=== PATIENT | female | born 1930 | race Caucasian/White ===

== ENCOUNTER 2016-12-26 13:18 | Inpatient (IN) | payer MEDICARE ==
[~2016-12-26] VITALS: Ht 157.5 cm; Wt 50.0 kg
[~2016-12-26 13:18] MED LIST: ARTH650T6 PO; ASPI81 PO; CALC-137 PO; ENAL20TA PO; FISH100020 PO; HYDR-2768 PO; ISOS20 PO; LOPR50TA12 PO; ROSU20 PO; TRAZ150T75 PO; VITA400C58 PO
[2016-12-26 13:22] VITALS: BP 148/64; PULSE 100; RESP 24; TEMP 97.9; O2SAT 81
[2016-12-26 13:29] VITALS: BP 138/91; PULSE 115; RESP 22; O2SAT 91
[2016-12-26] MEDS ORDERED: SODIUM CHLORIDE 0.9% FLUSH 5 ML FLUSH IVF PRN (13:45)
[2016-12-26] MEDS ORDERED: MORPHINE SULFATE 4 MG/ML INJ IV ONE (13:45)
[2016-12-26] MEDS ORDERED: ROSU40 PO (13:46)
[2016-12-26] MEDS ORDERED: LOSA50TA PO (13:46)
[2016-12-26] MEDS ORDERED: ANAS1TAB PO (13:46)
[2016-12-26] MEDS ORDERED: ASPI81CH CHEW (13:46)
[2016-12-26] MEDS ORDERED: AMLO5TAB2 PO (13:46)
[2016-12-26] MEDS ORDERED: TRAZ150T75 PO (13:46)
--- NOTE | 2016-12-26 14:01 | PD ---
HPI Chief Complaint: Facial Pain or Swelling Time Seen by Provider: 13:28 Travel History International Travel<30 days: No Contact w/Intl Traveler<30days: No Traveled to known affect area: No History of Present Illness HPI Patient is a 86-year-old female who presents to emergency room after a fall. Patient reports that she was at a car rental center, that she turned her head a little too fast and became dizzy and fell to the floor. Patient reports that when she fell onto the floor, she hit her face onto the cement. Reports that she may have had loss of consciousness after her fall. Reports that she does take a baby aspirin every single day and is not on any other anticoagulants. Reports that she was able to get up or walk after fall. Patient complains of pain to the left side her face as well as to the back of her head, reports that she is also having pain across her scapula. Patient denies any chest pain or shortness of breath. Reports that she does have a headache, denies any dizziness at this time. Patient denies any abdominal pain. Patient with no other complaints. PFSH Past Medical History Hx Anticoagulant Therapy: Yes (BABY ASPIRIN DAILY ) Anxiety: Yes Cancer: Yes (BREAST CA WITH LUMPECTOMY) Cardiovascular Problems: Yes (ANGIOPLASTY 1994 ) High Cholesterol: Yes Diabetes: No Endocrine: No Genitourinary: Yes (SLIGHT INCONTINENCE PROBLEM) Hepatitis: No Hiatal Hernia: No Hypertension: Yes Immune Disorder: No Musculoskeletal: Yes (ARTHRITIS, NECK PROBLEMS - HX OF FRACTURED CERVICAL VERTEBRAE, L SHOULDER) Neurologic: Yes (NUMBNESS/TINGLING L ARM - SHOULDER PAIN CHANTEL.) Psychiatric: No Reproductive: No Respiratory: No Thyroid Disease: No Past Surgical History Abdominal Surgery: Yes (APPENDECTOMY) AICD: No Appendectomy: Yes Cardiac Surgery: Yes (1994 CARDIAC STENT) Eye Surgery: Yes (LEFT CATARACT EXTRACT.) Joint Replacement: No Pacemaker: No Other Surgery: Yes (ANGIOPLASTY) Social History Alcohol Use: Yes (2 DRINKS QD) Tobacco Use: No Substance Use: No Allergies-Medications (Allergen,Severity, Reaction): Coded Allergies: Oxycodone (Verified Allergy, Severe, Rash, 12/26/16) TRUNK RASH Reported Meds & Prescriptions Reported Meds & Active Scripts Active Reported Anastrozole 1 Mg Tab 1 Mg PO DAILY Losartan (Losartan Potassium) 50 Mg Tab 50 Mg PO DAILY Amlodipine (Amlodipine Besylate) 5 Mg Tab 5 Mg PO BID Aspirin 81 Mg Chew 81 Mg CHEW DAILY Trazodone (Trazodone HCl) 150 Mg Tab 150 Mg PO HS Crestor (Rosuvastatin Calcium) 40 Mg Tab 40 Mg PO DAILY Review of Systems General / Constitutional: No: Fever Eyes: No: Visual changes HENT: No: Headaches Cardiovascular: No: Chest Pain or Discomfort Respiratory: No: Shortness of Breath Gastrointestinal: No: Abdominal Pain Genitourinary: No: Dysuria Musculoskeletal: No: Pain Skin: No Rash Neurologic: Positive: Headache, No: Weakness Psychiatric: No: Depression Endocrine: No: Polydipsia Hematologic/Lymphatic: No: Easy Bruising Physical Exam Narrative GENERAL: mild distress SKIN: Warm and dry. Patient with increased brusing to left side of face and around periorbital area HEAD: Atraumatic. Normocephalic. EYES: Pupils equal and round. No scleral icterus. No injection or drainage. ENT: No nasal bleeding or discharge. Mucous membranes pink and moist. NECK: Trachea midline. No JVD. CARDIOVASCULAR: Regular rate and rhythm. No murmur appreciated. RESPIRATORY: No accessory muscle use. Clear to auscultation. Breath sounds equal bilaterally. GASTROINTESTINAL: Abdomen soft, non-tender, nondistended. Hepatic and splenic margins not palpable. MUSCULOSKELETAL: No obvious deformities. No clubbing. No cyanosis. No edema. Patient with no midline tenderness, no c-spine tenderness NEUROLOGICAL: Awake and alert. No obvious cranial nerve deficits. Motor grossly within normal limits. Normal speech. PSYCHIATRIC: Appropriate mood and affect; insight and judgment normal. Data Data Last Documented VS Vital Signs Date Time Temp Pulse Resp B/P Pulse Ox O2 Delivery O2 Flow Rate FiO2 12/26/16 13:29 115 22 138/91 91 12/26/16 13:22 97.9 Room Air Orders Pelvis, Ap Only (Routine) (12/26/16 13:43) Ct Brain W/O Iv Contrast(Rout) (12/26/16 13:43) Ct Cerv Spine W/O Contrast (12/26/16 13:43) Apply Cervical Collar (12/26/16 13:43) Iv Access Insert/Monitor (12/26/16 13:43) Ecg Monitoring (12/26/16 13:43) Morphine Inj (Morphine Inj) (12/26/16 13:45) Sodium Chloride 0.9% Flush (Ns Flush) (12/26/16 13:45) Ct Thorax/ Chest Wo Iv Contras (12/26/16 ) Ct Facial Bones W/O Iv Cont (12/26/16 ) Basic Metabolic Panel (Bmp) (12/26/16 13:43) Complete Blood Count With Diff (12/26/16 13:43) Prothrombin Time / Inr (Pt) (12/26/16 13:43) Act Partial Throm Time (Ptt) (12/26/16 13:43) Electrocardiogram (12/26/16 ) Urinalysis - C+S If Indicated (12/26/16 14:37) Influenzae A/B Antigen (12/26/16 14:37) Blood Culture (12/26/16 14:37) Piperacil-Tazo 3.375 Gm Premix (Zosyn 3. (12/26/16 14:45) Vancomycin Inj (Vancomycin Inj) (12/26/16 14:45) Chest, Single Ap (12/26/16 ) Lactic Acid Sepsis Protocol (12/26/16 14:52) Admit Order (Ed Use Only) (12/26/16 16:21) Labs Laboratory Tests Test 12/26/16 13:59 White Blood Count 31.5 TH/MM3 Red Blood Count 4.45 MIL/MM3 Hemoglobin 13.3 GM/DL Hematocrit 40.9 % Mean Corpuscular Volume 91.8 FL Mean Corpuscular Hemoglobin 29.8 PG Mean Corpuscular Hemoglobin 32.5 % Concent Red Cell Distribution Width 14.5 % Platelet Count 159 TH/MM3 Mean Platelet Volume 8.1 FL Neutrophils (%) (Auto) 26.1 % Lymphocytes (%) (Auto) 68.2 % Monocytes (%) (Auto) 5.7 % Eosinophils (%) (Auto) 0.0 % Basophils (%) (Auto) 0.0 % Neutrophils # (Auto) 8.2 TH/MM3 Lymphocytes # (Auto) 21.5 TH/MM3 Monocytes # (Auto) 1.8 TH/MM3 Eosinophils # (Auto) 0.0 TH/MM3 Basophils # (Auto) 0.0 TH/MM3 CBC Comment AUTO DIFF Differential Total Cells 100 Counted Neutrophils % (Manual) 13 % Band Neutrophils % 12 % Lymphocytes % 71 % Monocytes % 4 % Neutrophils # (Manual) 7.9 TH/MM3 Differential Comment FINAL DIFF MANUAL Platelet Estimate NORMAL Platelet Morphology Comment NORMAL Red Cell Morphology Comment NORMAL Prothrombin Time 10.5 SEC Prothromb Time International 1.0 RATIO Ratio Activated Partial 33.5 SEC Thromboplast Time Sodium Level 134 MEQ/L Potassium Level 3.7 MEQ/L Chloride Level 98 MEQ/L Carbon Dioxide Level 22.1 MEQ/L Anion Gap 14 MEQ/L Blood Urea Nitrogen 25 MG/DL Creatinine 2.51 MG/DL Estimat Glomerular Filtration 18 ML/MIN Rate Random Glucose 131 MG/DL Calcium Level 8.6 MG/DL MDM Medical Decision Making Medical Screen Exam Complete: Yes Emergency Medical Condition: Yes Interpretation(s) EKG at 1430 shows normal sinus rhythm at 95 bpm, qt/qtc: 346/399, no acute st or t wave changes Vital Signs Date Time Temp Pulse Resp B/P Pulse Ox O2 Delivery O2 Flow Rate FiO2 12/26/16 13:29 115 22 138/91 91 12/26/16 13:22 97.9 100 24 148/64 81 Room Air Differential Diagnosis vertigo, acs, arrythmia, intracranial hemorrhage, epidural hematoma, subdural hematoma Narrative Course 86 year old female who presents to ER after fall today. Reports that she thinks that she turned around a little to fast and reports that her face landed on the cement. unsure if there was loc on scene. she was able to "come too" within a few minutes. patient with c/o of headache at this time along with across her scapula. CAT scan of the facial bones, head neck and chest ordered. IV contrast was not ordered as patient has stage III chronic kidney disease. Labs ordered. Patient requesting pain medications at this time. Patient reports that her allergy to oxycodone is rash. will give dose of morphine CBC & BMP Diagram 12/26/16 13:59 Patient with a 31,500 white count with bandemia, ulcers ordered as well as Zosyn and vancomycin. Patient also with acute renal insufficiency with a creatinine of 2.51 CBC & BMP Diagram 12/26/16 13:59 Patient with multilobar pneumonia as well as acute renal insufficiency. Patient reports that she has been having increased cough and congestion for the past 3 days, denies any fevers. Patient does have chronic kidney disease, patient does see Dr. Waddell in the office for this Physician Communication Physician Communication case reviewed with dr andres who accepts pt to service Diagnosis Primary Impression: Bandemia without diagnosis of specific infection Additional Impressions: Renal insufficiency Pneumonia Qualified Code: J18.9 - Pneumonia of both lower lobes due to infectious organism Admitting Information Admitting Physician Requests: Admit Yasmeen Cohen DO Dec 26, 2016 14:01
[2016-12-26 14:09] LABS: AUTOMATED NEUTROPHIL # 8.2 TH/MM3 (1.8-7.7); HEMATOCRIT 40.9 % (35.0-46.0); LYMPH % 68.2 % (9.0-44.0); LYMPHOCYTE # 21.5 TH/MM3 (1.0-4.8); MEAN CELL VOLUME 91.8 FL (80.0-100.0); MEAN CORPUSCULAR HEMOGLOBIN 29.8 PG (27.0-34.0); MEAN CORPUSCULAR HGB CONC 32.5 % (32.0-36.0); MONO % 5.7 % (0.0-8.0); NEUT % 26.1 % (16.0-70.0); PLATELET COUNT 159 TH/MM3 (150-450); RED BLOOD COUNT 4.45 MIL/MM3 (4.00-5.30); RED CELL DISTRIBUTION WIDTH 14.5 % (11.6-17.2); WHITE BLOOD COUNT 31.5 TH/MM3 (4.0-11.0)
[2016-12-26 14:10] LABS: HEMO FLAGS AUTO DIFF
[2016-12-26 14:19] LABS: APTT (PATIENT) 33.5 SEC (24.3-30.1); PROTHROMBIN TIME - PATIENT 10.5 SEC (9.8-11.6)
[2016-12-26 14:29] LABS: BICARBONATE 22.1 MEQ/L (21.0-32.0); POTASSIUM 3.7 MEQ/L (3.5-5.1)
--- NOTE | 2016-12-26 14:35 | RADRPT ---
EXAM DATE/TIME: 12/26/2016 13:56 [facility] COMPARISON: No previous studies available for comparison. INDICATIONS : Evaluate for Pelvis injury after fall. MEDICAL HISTORY : None. SURGICAL HISTORY : None. ENCOUNTER: Initial ACUITY: 1 day PAIN SCORE: 0/10 LOCATION: Pelvis. FINDINGS: A single frontal view of the pelvis demonstrates no evidence of fracture. The bony pelvic ring is in tact. Bony mineralization is normal. The soft tissues are intact. Vascular calcifications are seen. CONCLUSION: No acute disease. Dave Serna MD on December 26, 2016 at 14:33 Board Certified Radiologist. This report was verified electronically.
[2016-12-26 14:38] LABS: BANDS 12 % (0-6); NEUTROPHIL # MANUAL DIFF 7.9 TH/MM3 (1.8-7.7); POLYS (SEG NEUTROPHILS) 13 % (16-70); WBC DIFF SAMPLE 100
[2016-12-26 14:39] LABS: PLATELET ESTIMATE SMEAR NORMAL (NORMAL); PLATELET MORPHOLOGY NORMAL (NORMAL); SCAN/DIFF FINAL DIFF MANUAL
[2016-12-26] MEDS ORDERED: VANCOMYCIN INJ 850 MG in SODIUM CHLOR 0.9% 250 ML INJ 250 ML IV ONE (14:45)
[2016-12-26] MEDS ORDERED: PIPERACIL-TAZO 3.375 GM PREMIX 50 ML IV ONE (14:45)
--- NOTE | 2016-12-26 15:03 | RADRPT ---
EXAM DATE/TIME: 12/26/2016 14:51 [facility] COMPARISON: No previous studies available for comparison. INDICATIONS : Chest pain post fall. MEDICAL HISTORY : None. SURGICAL HISTORY : None. ENCOUNTER: Initial ACUITY: 1 day PAIN SCORE: 2/10 LOCATION: Bilateral chest FINDINGS: Mild consolidation seen laterally in the left mid and lower lung. I don't see a large effusion. No pn eumothorax seen. Cardiomediastinal silhouette within normal limits. CONCLUSION: Mild, nonspecific consolidation of the left lung. Dave Ibanez MD on December 26, 2016 at 15:01 Board Certified Radiologist. This report was verified electronically.
--- NOTE | 2016-12-26 15:20 | RADRPT ---
EXAM DATE/TIME: 12/26/2016 14:53 [facility] COMPARISON: No previous studies available for comparison. INDICATIONS : Trauma; fall, abrasions. RADIATION DOSE: 56.35 CTDIvol (mGy) MEDICAL HISTORY : Hypertension. Cardiovascular disease SURGICAL HISTORY : None. ENCOUNTER: Initial ACUITY: 1 day PAIN SCALE: 5/10 LOCATION: cranial TECHNIQUE: Multiple contiguous axial images were obtained of the head. Using automated exposure control and adj ustment of the mA and/or kV according to patient size, radiation dose was kept as low as reasonably a chievable to obtain optimal diagnostic quality images. FINDINGS: CEREBRUM: The ventricles are normal for age. No evidence of midline shift, mass lesion, hemorrhage or acute in farction. No extra-axial fluid collections are seen. Chronic appearing low attenuation seen in the p eriventricular white matter. POSTERIOR FOSSA: The cerebellum and brainstem are intact. The 4th ventricle is midline. The cerebellopontine angle i s unremarkable. EXTRACRANIAL: The visualized portion of the orbits is intact. SKULL: The calvaria is intact. No evidence of skull fracture. CONCLUSION: No acute intracranial abnormality. Dave Ibanez MD on December 26, 2016 at 15:18 Board Certified Radiologist. This report was verified electronically.
--- NOTE | 2016-12-26 15:21 | RADRPT ---
EXAM DATE/TIME: 12/26/2016 14:53 [facility] COMPARISON: No previous studies available for comparison. INDICATIONS : Trauma; fall, abrasions. RADIATION DOSE: 36.81 CTDIvol (mGy) MEDICAL HISTORY : Cardiovascular disease. Hypertension. SURGICAL HISTORY : None. ENCOUNTER: Initial ACUITY: 1 day PAIN SCORE: 5/10 LOCATION: Bilateral facial TECHNIQUE: Volumetric scanning of the facial bones was performed. Using automated exposure control and adjustme nt of the mA and/or kV according to patient size, radiation dose was kept as low as reasonably achiev able to obtain optimal diagnostic quality images. FINDINGS: ORBITS: The orbital and infraorbital osseous structures are intact. The retroconal structures have a normal configuration. No radiopaque foreign bodies are seen. NASAL BONE: The nasal bone and maxillary spine are intact ZYGOMATIC ARCHES: Symmetric without evidence of fracture. SINUSES: The maxillary, ethmoid and frontal sinuses are intact. No air-fluid levels seen. NASAL CAVITY: The nasal septum is intact and midline. The lacrimal ducts are intact. SOFT TISSUES: No radiopaque foreign bodies seen. No soft-tissue swelling is seen. INTRACRANIAL: No intracranial air seen. CRIBIFORM PLATE: Grossly intact. There is diffusely heterogeneous marrow, nonspecific but potentially on the basis of osteopenia or os teoporosis. A marrow infiltrative process would also be in the differential. No focal measurable bone lesion. CONCLUSION: 1. No facial fracture. 2. Diffusely heterogeneous marrow. Please see above. Dave Ibanez MD on December 26, 2016 at 15:19 Board Certified Radiologist. This report was verified electronically.
--- NOTE | 2016-12-26 15:26 | RADRPT ---
EXAM DATE/TIME: 12/26/2016 14:59 [facility] COMPARISON: No previous studies available for comparison. INDICATIONS : Trauma; fall, abrasions. RADIATION DOSE: 5.1 CTDIvol (mGy) MEDICAL HISTORY : Cardiovascular disease. Hypertension. SURGICAL HISTORY : None. ENCOUNTER: Initial ACUITY: 1 day PAIN SCALE: 5/10 LOCATION: Bilateral chest TECHNIQUE: Volumetric scanning of the chest was performed. Using automated exposure control and adjustment of t he mA and/or kV according to patient size, radiation dose was kept as low as reasonably achievable to obtain optimal diagnostic quality images. FINDINGS: Patchy areas of airspace consolidation are seen in both mid and lower lungs. No pleural effusion. No pneumothorax. No mediastinal hematoma. Scattered mediastinal lymph nodes measuring up to 1 cm in greatest short axi s dimension are demonstrated. Heart size upper limits of normal. There is right and left-sided king ry artery calcification and a very small pericardial effusion. 3.7 cm seroma seen in the left breast. CONCLUSION: 1. Nothing convincing for acute trauma to the chest. 2. Patchy infiltrates in both mid and lower lungs that are most likely pre-existing, infectious or in flammatory. 3. Small pericardial effusion also probably nonacute. 4. Upper limits of normal size mediastinal lymph nodes without anything clearly pathologic. 5. Left breast surgery. 6. Coronary artery calcification. Dave Ibanez MD on December 26, 2016 at 15:21 Board Certified Radiologist. This report was verified electronically.
--- NOTE | 2016-12-26 15:32 | RADRPT ---
EXAM DATE/TIME: 12/26/2016 14:53 [facility] COMPARISON: No previous studies available for comparison. INDICATIONS : Trauma; fall, abrasions. RADIATION DOSE: 21.06 CTDIvol (mGy) MEDICAL HISTORY : Hypertension. Cardiovascular disease SURGICAL HISTORY : None. ENCOUNTER: Initial ACUITY: 1 day PAIN SCALE: 5/10 LOCATION: Bilateral neck TECHNIQUE: Volumetric scanning of the cervical spine was performed. Multiplanar reconstructions in the sagittal, coronal and oblique axial planes were performed. Using automated exposure control and adjustment o f the mA and/or kV according to patient size, radiation dose was kept as low as reasonably achievable to obtain optimal diagnostic quality images. FINDINGS: Bones of the cervical spine are intact. No subluxation demonstrated. Vertebral bodies have normal hei ght. There is moderate facet osteoarthritis essentially throughout, in general left side predominant. Ther e is severe disc space narrowing with a small, broad posterior disc osteophyte complex at C6-C7. Mild disc space narrowing at the other levels. Moderate degenerative changes are seen anteriorly at C1/C2 . CONCLUSION: Intact cervical spine. Degenerative changes as above. Dave Ibanez MD on December 26, 2016 at 15:29 Board Certified Radiologist. This report was verified electronically.
--- NOTE | 2016-12-26 17:55 | HHI.HP ---
HPI [facility] Primary Care Physician Kenneth Vu MD Admission Diagnosis fall. dizzy. domenica, pna Chief Complaint: fall Travel History International Travel<30 Days: No Contact w/Intl Traveler <30 Da: No Traveled to Known Affected Are: No History of Present Illness Pt is 86 yo women with CLL and breast ca. She has had cough for past 4 days and one night had shaking chills. Today was at rental car store when she reports turning her head quickly and then becoming dizzy falling to the ground on her face. Probably brief loss of conciousness. Bruising over left face and periorbital area. Found to have domenica and concern for pna in ED. Review of Systems Other cough chills fall Past Family Social History Past Medical History breast ca left. lumpectomy. s/p radiation. CLL follows with oncology. htn hyperlipidemia ckd 3 Reported Medications Anastrozole 1 Mg Tab 1 Mg PO DAILY Losartan (Losartan Potassium) 50 Mg Tab 50 Mg PO DAILY Amlodipine (Amlodipine Besylate) 5 Mg Tab 5 Mg PO BID Aspirin 81 Mg Chew 81 Mg CHEW DAILY Trazodone (Trazodone HCl) 150 Mg Tab 150 Mg PO HS Crestor (Rosuvastatin Calcium) 40 Mg Tab 40 Mg PO DAILY Allergies: Coded Allergies: Oxycodone (Verified Allergy, Severe, Rash, 12/26/16) TRUNK RASH Family History nc Social History no etoh/tob Physical Exam Vital Signs heent neg heart reg lung course bs/wheezes abd s/nt ext no edema Vital Signs Date Time Temp Pulse Resp B/P Pulse Ox O2 Delivery O2 Flow Rate FiO2 12/26/16 13:29 115 22 138/91 91 12/26/16 13:22 97.9 100 24 148/64 81 Room Air Laboratory Laboratory Tests Test 12/26/16 12/26/16 13:59 16:12 White Blood Count 31.5 Red Blood Count 4.45 Hemoglobin 13.3 Hematocrit 40.9 Mean Corpuscular Volume 91.8 Mean Corpuscular Hemoglobin 29.8 Mean Corpuscular Hemoglobin 32.5 Concent Red Cell Distribution Width 14.5 Platelet Count 159 Mean Platelet Volume 8.1 Neutrophils (%) (Auto) 26.1 Lymphocytes (%) (Auto) 68.2 Monocytes (%) (Auto) 5.7 Eosinophils (%) (Auto) 0.0 Basophils (%) (Auto) 0.0 Neutrophils # (Auto) 8.2 Lymphocytes # (Auto) 21.5 Monocytes # (Auto) 1.8 Eosinophils # (Auto) 0.0 Basophils # (Auto) 0.0 CBC Comment AUTO DIFF Differential Total Cells 100 Counted Neutrophils % (Manual) 13 Band Neutrophils % 12 Lymphocytes % 71 Monocytes % 4 Neutrophils # (Manual) 7.9 Differential Comment FINAL DIFF MANUAL Platelet Estimate NORMAL Platelet Morphology Comment NORMAL Red Cell Morphology Comment NORMAL Prothrombin Time 10.5 Prothromb Time International 1.0 Ratio Activated Partial 33.5 Thromboplast Time Sodium Level 134 Potassium Level 3.7 Chloride Level 98 Carbon Dioxide Level 22.1 Anion Gap 14 Blood Urea Nitrogen 25 Creatinine 2.51 Estimat Glomerular Filtration 18 Rate Random Glucose 131 Calcium Level 8.6 Lactic Acid Level 0.8 Date/Time Procedure Status Source Growth 12/26/16 14:50 Influenza Types A,B Antigen (LARRY) - Final Complete Nasal Aspirate NEGATIVE FOR FLU A AND B ANTIGEN.... 12/26/16 14:50 Aerobic Blood Culture Received Blood Peripheral Pending 12/26/16 14:50 Anaerobic Blood Culture Received Blood Peripheral Pending Result Diagram: 12/26/16 1359 12/26/16 1359 Assessment and Plan Problem List: (1) Fall Status: Acute Plan: Pt is 86 yo s/p fall/dizziness with loc facial trauma/contusions domenica probably dehydrations cough/chills..chest infiltrates concerning for pna ...could consider radiation lung changes. She has CLL and chonic leukocytosis. s/p radiation for breast ca recently gentle ivf. recheck bmp cont abx for presumed pna. duonebs for wheezing f/u cx's PT eval dvt proohylaxis hold arb until renal function improves. (2) Contusion of face Status: Acute Plan: above (3) DOMENICA (acute kidney injury) Status: Acute Plan: above (4) Pneumonia Status: Acute Plan: above (5) CLL (chronic lymphocytic leukemia) Status: Chronic Plan: follows with dr simms (6) Breast CA Status: Chronic Plan: s/p lumpectomy and radiation. Physician Certification 2 Midnight Certification Type: Admission for Inpatient Services Order for Inpatient Services 3The services are ordered in accordance with Medicare regulations or non- Medicare payer requirements, as applicable. In the case of services not specified as inpatient-only, they are appropriately provided as inpatient services in accordance with the 2-midnight benchmark. Estimated LOS (days): 3 3 days is the estimated time the patient will need to remain in the hospital, assuming treatment plan goals are met and no additional complications. Post-Hospital Plan: Home Problem Qualifiers (1) Pneumonia: Qualified Code: J18.9 - Pneumonia of both lower lobes due to infectious organism Dimas Acosta MD Dec 26, 2016 17:55
[2016-12-26] MEDS ORDERED: ONDANSETRON HCL 4 MG/2 ML VIAL IV PUSH ONE (18:00)
[2016-12-26] MEDS: SODIUM CHLOR 0.9% 1000 ML INJ 1,000 ML IV SCH (18:02)
[2016-12-26 18:20] VITALS: BP 133/57; PULSE 94; RESP 20; O2SAT 90
[2016-12-26] MEDS: RESP: ALBUTEROL 2.5 MG/IPRATROPIUM 0.5 MG NEB (SCH) NEB (19:35)
[2016-12-26 19:43] VITALS: O2SAT 93
[2016-12-26 20:00] VITALS: BP 149/67; PULSE 113; RESP 24; TEMP 98.4; O2SAT 95
[2016-12-26] MEDS: traZODone HCL 50 MG TAB PO SCH (20:10)
[2016-12-26] MEDS: guaiFENesin E.R. 600 MG TAB PO SCH (20:10)
[2016-12-26] MEDS: amLODIPine BESYLATE 5 MG TAB PO SCH (20:11)
[2016-12-26 23:51] LABS: BACTERIA, URINE MOD /hpf; BLOOD, URINE MOD (NEG); COMMENT (UR) CULTURE INDICATED; CULTURE IF INDICATED CULTURE INDICATED; GLUCOSE,URINE TRACE mg/dL (NEG); HYALINE CAST, URINE 7 /lpf (RARE); KETONE, URINE NEG (NEG); MUCUS URINE FEW /lpf (OCC); NITRITE,URINE NEG (NEG); RENAL EPITHELIAL CELLS 1 /hpf; SQUAMOUS EPITHELIAL CELL URINE 28 /hpf (0-5); URINE COLOR YELLOW (YELLW/STRAW)
[2016-12-27] VITALS (7 sets, daily range): BP systolic 106–137; BP diastolic 53–66; PULSE 100–115; RESP 14–22; TEMP 96.6–99; O2SAT 92–95
[2016-12-27 05:12] LABS: BASOPHIL % 0.2 % (0.0-2.0); HEMATOCRIT 34.5 % (35.0-46.0); LYMPH % 72.8 % (9.0-44.0); LYMPHOCYTE # 15.6 TH/MM3 (1.0-4.8); MEAN CELL VOLUME 91.2 FL (80.0-100.0); MEAN CORPUSCULAR HEMOGLOBIN 30.2 PG (27.0-34.0); MEAN CORPUSCULAR HGB CONC 33.1 % (32.0-36.0); MONO % 3.5 % (0.0-8.0); NEUT % 23.5 % (16.0-70.0); PLATELET COUNT 119 TH/MM3 (150-450); RED BLOOD COUNT 3.79 MIL/MM3 (4.00-5.30); RED CELL DISTRIBUTION WIDTH 14.4 % (11.6-17.2); WHITE BLOOD COUNT 21.5 TH/MM3 (4.0-11.0)
[2016-12-27 05:26] LABS: HEMO FLAGS AUTO DIFF
[2016-12-27] MEDS: SODIUM CHLOR 0.9% 1000 ML INJ 1,000 ML IV SCH (05:26)
[2016-12-27 05:37] LABS: POTASSIUM 3.8 MEQ/L (3.5-5.1)
[2016-12-27 07:07] LABS: BANDS 8 % (0-6); NEUTROPHIL # MANUAL DIFF 6.5 TH/MM3 (1.8-7.7); POLYS (SEG NEUTROPHILS) 22 % (16-70); WBC DIFF SAMPLE 100
[2016-12-27 07:10] LABS: PLATELET ESTIMATE SMEAR LOW (NORMAL); PLATELET MORPHOLOGY NORMAL (NORMAL); SCAN/DIFF FINAL DIFF MANUAL; SMUDGE CELLS PRESENT PRESENT
[2016-12-27 07:11] LABS: BURR CELLS 1+ (NORMAL)
[2016-12-27] MEDS: ATORVASTATIN 80 MG TAB PO SCH (08:24)
[2016-12-27] MEDS: ASPIRIN 81 MG CHEW TAB CHEW SCH (08:25)
[2016-12-27] MEDS: amLODIPine BESYLATE 5 MG TAB PO SCH ×2 (08:25→22:10)
[2016-12-27] MEDS: ANASTROZOLE 1 MG TAB PO SCH (08:25)
[2016-12-27] MEDS: cefTRIAXone INJ 1,000 MG in SODIUM CHLORIDE 0.9% INJ 100 ML IV SCH (08:28)
[2016-12-27] MEDS: guaiFENesin E.R. 600 MG TAB PO SCH ×2 (08:28→22:10)
[2016-12-27] MEDS: RESP: ALBUTEROL 2.5 MG/IPRATROPIUM 0.5 MG NEB (SCH) NEB ×3 (08:37→20:13)
[2016-12-27] MEDS: AZITHROMYCIN INJ 500 MG in SODIUM CHLOR 0.9% 250 ML INJ 250 ML IV SCH (10:19)
--- NOTE | 2016-12-27 15:04 | EKG ---
Date Performed: 12/26/2016 Time Performed: 14:30:16 PTAGE: 86 years EKG: Sinus rhythm INFERIOR MYOCARDIAL INFARCTION ABNORMAL ECG Compared to prior tracing no significant change PREVIOUS TRACING : 07/25/2008 13.23 DOCTOR: Delores Phillips Interpretating Date/Time 12/27/2016 14:56:51
--- NOTE | 2016-12-27 16:03 | HHI.PR ---
Subjective Remarks No new complaints. Objective Vitals Vital Signs Date Time Temp Pulse Resp B/P Pulse Ox O2 Delivery O2 Flow Rate FiO2 12/27/16 12:00 98.1 103 14 106/55 95 12/27/16 08:40 92 Nasal Cannula 2.00 12/27/16 08:00 96.6 112 16 125/61 93 12/27/16 00:00 97.5 100 22 120/59 95 12/26/16 20:00 98.4 113 24 149/67 95 12/26/16 19:43 93 Nasal Cannula 2.00 12/26/16 18:20 94 20 133/57 90 Nasal Cannula 2 12/26/16 12/26/16 12/27/16 15:00 23:00 07:00 Intake Total 344 ml 690 ml Balance 344 ml 690 ml Intake Oral 120 ml 120 ml IV Total 224 ml 570 ml # Voids 1 1 # Bowel Movements 0 0 Result Diagram: 12/27/1644112/27/16 044 A/P Problem List: (1) Fall Status: Acute Plan: Pt is 86 yo s/p fall/dizziness with loc facial trauma/contusions - domenica probably dehydrations - cough/chills..chest infiltrates concerning for pna - could consider radiation lung changes. - She has CLL and chonic leukocytosis. - s/p radiation for breast ca recently - PT - dvt proohylaxis hold arb until renal function improves. (2) Contusion of face Status: Acute Plan: above (3) DOMENICA (acute kidney injury) Status: Acute Plan: - worsened from admission - increase rate of IVFs to 125ml/hr - obtain US kidneys, bladder, ureters - request Nephrology consult (4) Pneumonia Status: Acute Plan: - leukocytosis improved from admission, but pt has underlying CLL - WBC 31.5 (12/26/16), 21.5 (12/27/16) - continue Rocephin and azithromycin - duonebs q6h while awake - repeat CBC in AM - Blood Culture negative at 1 day (5) CLL (chronic lymphocytic leukemia) Status: Chronic Plan: follows with dr simms (6) Breast CA Status: Chronic Plan: s/p lumpectomy and radiation. Problem Qualifiers (1) Contusion of face: Qualified Code: S00.83XD - Contusion of face, subsequent encounter (2) Pneumonia: Qualified Code: J18.9 - Pneumonia of both lower lobes due to infectious organism Thom Murillo DO Dec 27, 2016 16:03
[2016-12-27] MEDS: 1/2 NS + KCL 20 MEQ INJ 1,000 ML IV SCH ×2 (16:18→22:10)
[2016-12-27] MEDS: ONDANSETRON HCL 4 MG/2 ML VIAL IV PUSH PRN (18:42)
[2016-12-27] MEDS: traZODone HCL 50 MG TAB PO SCH (22:10)
--- NOTE | 2016-12-27 22:40 | RADRPT ---
EXAM DATE/TIME: 12/27/2016 20:43 [facility] COMPARISON: No previous studies available for comparison. INDICATIONS : Increased BUN and Creatinine. MEDICAL HISTORY : Hypercholesterolemia. Hypertension. Carcinoma, breast. Anticoagulant therapy, Aspirin. Incontinence. Arthritis. Cervical fracture. Left shoulder pain. Anxiety. SURGICAL HISTORY : Appendectomy. Coronary artery stent. Angioplasty. Breast lumpectomy. ENCOUNTER: Initial ACUITY: 1 day PAIN SCORE: 4/10 LOCATION: Bilateral flank MEASUREMENTS: RIGHT KIDNEY: 9.5 x 5.6 x 4.7 cm LEFT KIDNEY: 11.3 x 6.0 x 5.0 cm FINDINGS: RIGHT KIDNEY: There is some increased echogenicity of the renal parenchyma. No hydronephrosis. There is a small jack unt perinephric edema. LEFT KIDNEY: There is some increased echogenicity of the renal parenchyma. No hydronephrosis. There is a small cys t along the lower pole measuring 1.4 cm. BLADDER: The bladder is decompressed. CONCLUSION: 1. There is increased echogenicity of both kidneys. This suggests chronic medical renal disease. 2. No hydronephrosis. 3. Small benign left renal cyst. 4. Mild right perinephric edema. Osmin Amos MD on December 27, 2016 at 22:37 Board Certified Radiologist. This report was verified electronically.
[2016-12-28] VITALS (8 sets, daily range): BP systolic 116–138; BP diastolic 62–67; PULSE 115–122; RESP 16–22; TEMP 95.9–98.2; O2SAT 91–97
[2016-12-28 05:46] LABS: AUTOMATED NEUTROPHIL # 6.4 TH/MM3 (1.8-7.7); BASOPHIL % 0.1 % (0.0-2.0); HEMATOCRIT 34.3 % (35.0-46.0); LYMPH % 68.1 % (9.0-44.0); LYMPHOCYTE # 15.4 TH/MM3 (1.0-4.8); MEAN CORPUSCULAR HEMOGLOBIN 30.6 PG (27.0-34.0); MEAN CORPUSCULAR HGB CONC 33.6 % (32.0-36.0); MONO % 3.7 % (0.0-8.0); NEUT % 28.1 % (16.0-70.0); PLATELET COUNT 136 TH/MM3 (150-450); RED BLOOD COUNT 3.77 MIL/MM3 (4.00-5.30); RED CELL DISTRIBUTION WIDTH 14.7 % (11.6-17.2); WHITE BLOOD COUNT 22.6 TH/MM3 (4.0-11.0)
[2016-12-28] MEDS: RESP: ALBUTEROL 2.5 MG/IPRATROPIUM 0.5 MG NEB (SCH) NEB ×3 (05:59→19:01)
[2016-12-28 06:07] LABS: HEMO FLAGS AUTO DIFF
[2016-12-28 06:09] LABS: BICARBONATE 18.5 MEQ/L (21.0-32.0); POTASSIUM 4.3 MEQ/L (3.5-5.1)
[2016-12-28 06:25] LABS: CALCIUM-PROTEIN CORRECTED 7.9 MG/DL (8.5-10.1)
[2016-12-28] MEDS: 1/2 NS + KCL 20 MEQ INJ 1,000 ML IV SCH ×3 (07:59→21:21)
[2016-12-28] MEDS: ATORVASTATIN 80 MG TAB PO SCH (07:59)
[2016-12-28] MEDS: cefTRIAXone INJ 1,000 MG in SODIUM CHLORIDE 0.9% INJ 100 ML IV SCH (07:59)
[2016-12-28] MEDS: amLODIPine BESYLATE 5 MG TAB PO SCH ×2 (07:59→21:21)
[2016-12-28] MEDS: ASPIRIN 81 MG CHEW TAB CHEW SCH (07:59)
[2016-12-28] MEDS: guaiFENesin E.R. 600 MG TAB PO SCH ×2 (07:59→21:20)
[2016-12-28] MEDS: ANASTROZOLE 1 MG TAB PO SCH (07:59)
[2016-12-28 08:39] LABS: BANDS 8 % (0-6); BURR CELLS 1+ (NORMAL); NEUTROPHIL # MANUAL DIFF 5.7 TH/MM3 (1.8-7.7); PLATELET ESTIMATE SMEAR LOW (NORMAL); PLATELET MORPHOLOGY NORMAL (NORMAL); POLYS (SEG NEUTROPHILS) 17 % (16-70); SCAN/DIFF FINAL DIFF MANUAL; SMUDGE CELLS PRESENT PRESENT; WBC DIFF SAMPLE 100
--- NOTE | 2016-12-28 09:06 | MB ---
cc: CHRIS TORRES MD DATE OF CONSULTATION 12/27/2016 REASON FOR CONSULTATION Elevated BUN and creatinine for evaluation. HISTORY OF PRESENT ILLNESS This is a very pleasant 86-year-old female with a past medical history of chronic lymphocytic leukemia, history of breast cancer, hypertension, hyperlipidemia, stage III chronic kidney disease who came to the hospital with complaint of a history of fall and cough for four days before admission. I was called to see the patient because of elevated BUN and creatinine. The patient has a history of chronic kidney disease and she has been following with me in the office. Her last creatinine was done. The baseline creatinine is around 1.0 to 1.1 and the GFR around 47 to 46 cm/minute. This was when I saw her in the office on October 28. The patient now admitted with a creatinine of 2.5 and has gone up to 3.6. She admits that she has not been eating very well and she has some nausea. There is no vomiting. She has this gradual worsening of shortness of breath and has been not eating well. There is no history of diarrhea. She a cough with whitish sputum. There is also a history of chills and low grade fever and she has been feeling dizzy off and on and she fell down before she came to the hospital with a brief loss of consciousness and has bruises on the left side of her face. PAST MEDICAL HISTORY 1. Hypertension 2. Chronic kidney disease 3. Hyperlipidemia 4. Chronic lymphocytic leukemia 5. History of breast cancer post radiation PAST SURGICAL HISTORY Breast lumpectomy REVIEW OF SYSTEMS The patient has generalized weakness, feeling tired, has chills and low grade fever, also has cough with whitish sputum. There is no nausea, decreased appetite, feeling weak, tired and dizzy when she gets up. She has a history of fall at home and brief loss of consciousness. There is no chest pain, no history of diarrhea. Her urine output is adequate and she did not notice any decrease in the urine output. SOCIAL HISTORY There is no history of smoking or alcoholism. FAMILY HISTORY Noncontributory ALLERGIES She is allergic to oxycodone. MEDICATIONS Currently she is getting IV fluids with: 1. Potassium chloride at 125 an hour 2. Mucinex 600 mg b.i.d. 3. Amlodipine 5 mg b.i.d. 4. Arimidex 1 mg once a day 5. Aspirin 81 mg daily 6. Lipitor 80 mg once a day 7. Trazodone 150 mg q.h.s. 8. Ceftriaxone 1 gram [id number] 9. Azithromycin 500 mg q24h 10. Zofran as needed 11. DuoNeb as needed EXAMINATION The patient is awake and alert. She is feeling weak and not in acute distress. VITAL SIGNS: Her last blood pressure is 137/66, temperature is 99, oxygen saturation on two liters nasal cannula is 92%. HEAD, EYES, EARS, NOSE, AND THROAT: Pupils equally reacting to light. Nonicteric sclerae. Conjunctivae pale. NECK: Supple. JVD is not elevated. LUNGS: The patient has bilateral decreased air entry with basilar rales with scattered wheezing. HEART: S1 and S2 regular rhythm. ABDOMEN: Soft and lax. There is no tenderness. EXTREMITIES: There is mild pedal edema. INVESTIGATIONS WBC count is 21.5, hemoglobin 11.4, platelet count 190, neutrophils 72.8% and eosinophils 0%. Sodium 138, potassium 3.8, chloride 103, bicarb 26, BUN 32, creatinine 3.6, calcium 7.4 with corrected calcium of 8.0, total protein is 6.0. Urinalysis showing that she has protein of 300, INR is 1.0. IMAGING STUDIES The patient had an ultrasound of the kidneys done which shows both kidneys looked normal in size. There is increased echogenicity, no hydronephrosis, a small benign left renal cyst, mild right perinephric edema. CT scan of the spine done which shows an intact cervical spine with degenerative changes. Also had a CT scan of the brain done on presentation and it shows no acute intracranial abnormalities. Pelvic x-ray was done which was negative for any fracture. CT scan of the chest was done which shows nothing convincing of acute trauma, patchy infiltrate, small pericardial effusion. Left breast surgery, mediastinal lymph nodes. ASSESSMENT/PLAN 1. Pneumonia 2. History of fall. 3. Chronic kidney disease and acute kidney injury 4. Chronic lymphocytic leukemia 5. History of breast cancer. 6. Mild anemia The patient has an elevated BUN and creatinine from her baseline. There is a possibility of prerenal azotemia or possibility of ATN. She is getting IV fluids now with potassium chloride and getting antibiotic. The ATN could be related to the infection. I will check the urine sodium and osmolality and agree with continuing the IV fluids and following the urine output, BUN and creatinine. Thank you for the consultation. I will follow the patient while she is in the hospital. MD TIGIST Aguilar/SY /10:02 PM /7:52 AM
[2016-12-28] MEDS: AZITHROMYCIN INJ 500 MG in SODIUM CHLOR 0.9% 250 ML INJ 250 ML IV SCH (09:52)
--- NOTE | 2016-12-28 10:04 | HHI.NPPN ---
Subjective General Problems: Anemia Renal Failure: Chronic, Acute, Stage III History of Present Illness 86-year-old female with a past medical history of chronic lymphocytic leukemia, history of breast cancer, hypertension, hyperlipidemia, stage III chronic kidney disease who came to the hospital with complaint of a history of fall and cough for four days before admission. I was called to see the patient because of elevated BUN and creatinine. The patient has a history of chronic kidney disease and she has been following with me in the office. Her last creatinine was done. The baseline creatinine is around 1.0 to 1.1 and the GFR around 47 to 46 cm/minute. Additional Remarks Patient is alert, feeling weak, no vomiting and cough is better. Review of Systems General Constitutional: Fatigue Respiratory Lungs: SOB, Cough, Sputum, Wheeze Cardiovascular Cardiac: ZELAYA Gastrointestinal Gastrointestinal: Nausea & Vomiting Objective Data Data 12/27/16 12/28/16 19:00 07:00 Intake Total 1640 ml 770 ml Output Total 400 ml Balance 1640 ml 370 ml Intake Oral 360 ml 360 ml IV Total 1280 ml 410 ml Output Urine Total 400 ml # Voids 3 # Bowel Movements 1 0 Vital Signs Date Time Temp Pulse Resp B/P Pulse Ox O2 Delivery O2 Flow Rate FiO2 12/28/16 08:00 96.8 120 16 130/65 93 12/28/16 06:01 92 Nasal Cannula 2.00 12/28/16 00:00 98.2 120 22 138/65 92 12/27/16 20:13 92 Nasal Cannula 2.00 12/27/16 20:00 99.0 115 20 137/66 92 12/27/16 16:00 97.4 110 14 109/53 93 12/27/16 12:00 98.1 103 14 106/55 95 -: 12/28/16 0520 12/28/16 0520 Physical Exam General Appearance: No Acute Distress, Comfortable Eyes Eye Exam: Pupils Equal Throat Throat Exam: Oral Mucosa [place] & Moist Neck Neck Exam: Trachea Midline Pulmonary Resp Exam: No Distress, Rhonchi, Decreased Bases, Diminished Breath Sounds Cardiology CV Exam: Regular, Normal Sinus Rhythm Gastrointestinal/Abdomen GI Exam: Soft, Non-Tender, Bowel Sounds Present Extremeties Extremities Exam: No Edema Neurologic Neuro Exam: Alert, Awake Psychiatric Psych Exam: Appropriate Responses Assessment/Plan Assessment Summary: DOMENICA/Acute Renal Failure, Hypertension, CKD Stage III Problem List: (1) CLL (chronic lymphocytic leukemia) (2) Contusion of face (3) Fall (4) Breast CA (5) Pneumonia (6) DOMENICA (acute kidney injury) Plan Patient has been non oliguric. BP is stable. WBC still elevated. Creatinine continue to increase. Possibly has ATN or A. Interstitial Nephritis. Continue IVF and antibiotics. I discussed with her about possible HD if not better, she is not sure about it. Will follow. Problem Qualifiers (1) Contusion of face: Qualified Code: S00.83XD - Contusion of face, subsequent encounter (2) Pneumonia: Qualified Code: J18.9 - Pneumonia of both lower lobes due to infectious organism Marysol Parry MD Dec 28, 2016 10:04
--- NOTE | 2016-12-28 14:47 | HHI.PR ---
Subjective Remarks No acute complaints. Objective Vitals Vital Signs Date Time Temp Pulse Resp B/P Pulse Ox O2 Delivery O2 Flow Rate FiO2 12/28/16 14:22 91 Nasal Cannula 2.00 12/28/16 12:13 97.6 115 18 116/62 97 12/28/16 08:00 96.8 120 16 130/65 93 12/28/16 06:01 92 Nasal Cannula 2.00 12/28/16 00:00 98.2 120 22 138/65 92 12/27/16 20:13 92 Nasal Cannula 2.00 12/27/16 20:00 99.0 115 20 137/66 92 12/27/16 16:00 97.4 110 14 109/53 93 12/27/16 12/27/16 12/28/16 15:00 23:00 07:00 Intake Total 1227 ml 1063 ml 120 ml Output Total 200 ml 200 ml Balance 1227 ml 863 ml -80 ml Intake Oral 360 ml 240 ml 120 ml IV Total 867 ml 823 ml Output Urine Total 200 ml 200 ml # Voids 3 # Bowel Movements 1 0 0 Result Diagram: 12/28/16 0520 12/28/16 0520 Imaging Last Impressions Pelvis X-Ray 12/26/161342 Signed Impressions: Service Date/Time: Monday, December 26, 2016 13:56 - CONCLUSION: No acute disease. Dave Serna MD Head CT 12/26/16 1343 Signed Impressions: Service Date/Time: Monday, December 26, 2016 14:53 - CONCLUSION: No acute intracranial abnormality. Dave Ibanez MD Cervical Spine CT 12/26/16 1343 Signed Impressions: Service Date/Time: Monday, December 26, 2016 14:53 - CONCLUSION: Intact cervical spine. Degenerative changes as above. Dave Ibanez MD Maxillofacial CT 12/26/16 0000 Signed Impressions: Service Date/Time: Monday, December 26, 2016 14:53 - CONCLUSION: 1. No facial fracture. 2. Diffusely heterogeneous marrow. Please see above. Dave Ibanez MD Chest X-Ray 12/26/16 0000 Signed Impressions: Service Date/Time: Monday, December 26, 2016 14:51 - CONCLUSION: Mild, nonspecific consolidation of the left lung. Dave Ibanez MD Chest CT 12/26/16 0000 Signed Impressions: Service Date/Time: Monday, December 26, 2016 14:59 - CONCLUSION: 1. Nothing convincing for acute trauma to the chest. 2. Patchy infiltrates in both mid and lower lungs that are most likely pre-existing, infectious or inflammatory. 3. Small pericardial effusion also probably nonacute. 4. Upper limits of normal size mediastinal lymph nodes without anything clearly pathologic. 5. Left breast surgery. 6. Coronary artery calcification. Dave Ibanez MD Objective Remarks GENERAL: This is a well-nourished, well-developed patient, in no apparent distress. CARDIOVASCULAR: Regular rate and rhythm without murmurs, gallops, or rubs. RESPIRATORY: Clear to auscultation. Breath sounds equal bilaterally. No wheezes , rales, or rhonchi. GASTROINTESTINAL: Abdomen soft, non-tender, nondistended. Normal active bowel sounds MUSCULOSKELETAL: Extremities without clubbing, cyanosis, or edema. NEURO: Alert & Oriented x4 to person, place, time, situation. Moves all ext x4 A/P Problem List: (1) Fall Status: Acute Plan: Pt is 86 yo s/p fall/dizziness with loc facial trauma/contusions - domenica probably dehydrations - cough/chills..chest infiltrates concerning for pna - could consider radiation lung changes. - She has CLL and chonic leukocytosis. - s/p radiation for breast ca recently - PT - dvt proohylaxis hold arb until renal function improves. (2) Contusion of face Status: Acute Plan: above (3) DOMENICA (acute kidney injury) Status: Acute Plan: - continues to worsen - comgmt with Nephrology - increase rate of IVFs to 125ml/hr - US kidneys, bladder, ureters (12/27/16) --> increased echogenicity of both kidneys c/w medical renal disease - Dr. Parry let pt know that HD may be required. Pt is considering. (4) Pneumonia Status: Acute Plan: - leukocytosis improved from admission, but pt has underlying CLL - WBC 31.5 (12/26/16), 21.5 (12/27/16) - continue Rocephin and azithromycin - duonebs q6h while awake - repeat CBC in AM - Blood Culture negative at 2 day (5) CLL (chronic lymphocytic leukemia) Status: Chronic Plan: follows with dr simms (6) Breast CA Status: Chronic Plan: s/p lumpectomy and radiation. (7) Vaginal prolapse Status: Acute Plan: - f/u with senior commissions analyst outpt Problem Qualifiers (1) Contusion of face: Qualified Code: S00.83XD - Contusion of face, subsequent encounter (2) Pneumonia: Qualified Code: J18.9 - Pneumonia of both lower lobes due to infectious organism Thom Murillo DO Dec 28, 2016 14:47
[2016-12-28] MEDS: traZODone HCL 50 MG TAB PO SCH (21:21)
[2016-12-29] VITALS (8 sets, daily range): BP systolic 110–135; BP diastolic 56–67; PULSE 103–114; RESP 17–20; TEMP 97.4–98.7; O2SAT 90–94
[2016-12-29] MEDS: RESP: ALBUTEROL 2.5 MG/IPRATROPIUM 0.5 MG NEB (PRN) NEB (04:02)
[2016-12-29] MEDS: 1/2 NS + KCL 20 MEQ INJ 1,000 ML IV SCH (07:30)
[2016-12-29] MEDS: RESP: ALBUTEROL 2.5 MG/IPRATROPIUM 0.5 MG NEB (SCH) NEB ×3 (07:56→20:58)
[2016-12-29] MEDS: ONDANSETRON HCL 4 MG/2 ML VIAL IV PUSH PRN ×2 (08:10→15:31)
[2016-12-29] MEDS: cefTRIAXone INJ 1,000 MG in SODIUM CHLORIDE 0.9% INJ 100 ML IV SCH (08:12)
[2016-12-29] MEDS: AZITHROMYCIN INJ 500 MG in SODIUM CHLOR 0.9% 250 ML INJ 250 ML IV SCH (08:14)
[2016-12-29] MEDS: ASPIRIN 81 MG CHEW TAB CHEW SCH (08:14)
[2016-12-29] MEDS: ATORVASTATIN 80 MG TAB PO SCH (08:14)
[2016-12-29] MEDS: amLODIPine BESYLATE 5 MG TAB PO SCH ×2 (08:14→20:47)
[2016-12-29] MEDS: guaiFENesin E.R. 600 MG TAB PO SCH ×2 (08:14→20:47)
[2016-12-29] MEDS: ANASTROZOLE 1 MG TAB PO SCH (08:14)
--- NOTE | 2016-12-29 11:13 | HHI.NPPN ---
Subjective General Problems: Anemia Renal Failure: Chronic, Acute, Stage III History of Present Illness 86-year-old female with a past medical history of chronic lymphocytic leukemia, history of breast cancer, hypertension, hyperlipidemia, stage III chronic kidney disease who came to the hospital with complaint of a history of fall and cough for four days before admission. I was called to see the patient because of elevated BUN and creatinine. The patient has a history of chronic kidney disease and she has been following with me in the office. Her last creatinine was done. The baseline creatinine is around 1.0 to 1.1 and the GFR around 47 to 46 cm/minute. Additional Remarks Patient is alert, sitting on chair, not in distress, still has nausea. Review of Systems General Constitutional: Fatigue Respiratory Lungs: SOB, Cough, Sputum, Wheeze Cardiovascular Cardiac: ZELAYA Gastrointestinal Gastrointestinal: Nausea & Vomiting Objective Data Data 12/28/16 12/29/16 19:00 07:00 Intake Total 2173 ml 817 ml Output Total 350 ml Balance 1823 ml 817 ml Intake Oral 440 ml IV Total 2173 ml 377 ml Output Urine Total 350 ml # Voids 4 # Bowel Movements 2 3 Vital Signs Date Time Temp Pulse Resp B/P Pulse Ox O2 Delivery O2 Flow Rate FiO2 12/29/16 08:00 97.8 111 17 129/62 90 12/29/16 07:56 90 Nasal Cannula 2.00 12/29/16 04:14 93 Nasal Cannula 2.00 12/29/16 00:00 98.0 114 20 135/67 92 12/28/16 20:00 97.4 120 20 131/67 93 12/28/16 19:01 94 Nasal Cannula 2.00 12/28/16 16:16 95.9 122 18 138/62 92 12/28/16 14:22 91 Nasal Cannula 2.00 12/28/16 12:13 97.6 115 18 116/62 97 -: 12/28/16 0520 12/28/16 0520 Physical Exam General Appearance: No Acute Distress, Comfortable Eyes Eye Exam: Pupils Equal Throat Throat Exam: Oral Mucosa [place] & Moist Neck Neck Exam: Trachea Midline Pulmonary Resp Exam: No Distress, Rhonchi, Decreased Bases, Diminished Breath Sounds Cardiology CV Exam: Regular, Normal Sinus Rhythm Gastrointestinal/Abdomen GI Exam: Soft, Non-Tender, Bowel Sounds Present Extremeties Extremities Exam: No Edema Neurologic Neuro Exam: Alert, Awake Psychiatric Psych Exam: Appropriate Responses Assessment/Plan Assessment Summary: DOMENICA/Acute Renal Failure, Hypertension, CKD Stage III Problem List: (1) CLL (chronic lymphocytic leukemia) (2) Contusion of face (3) Fall (4) Breast CA (5) Pneumonia (6) DOMENICA (acute kidney injury) Plan Patient has been non oliguric. BP is stable. WBC still elevated. Creatinine continue to increase. Possibly has ATN or A. Interstitial Nephritis. Continue IVF and antibiotics. Possible HD in AM, if not better. Problem Qualifiers (1) Contusion of face: Qualified Code: S00.83XD - Contusion of face, subsequent encounter (2) Pneumonia: Qualified Code: J18.9 - Pneumonia of both lower lobes due to infectious organism Marysol Parry MD Dec 29, 2016 11:13 Marysol Parry MD Dec 29, 2016 11:13
[2016-12-29 11:42] LABS: BICARBONATE 13.4 MEQ/L (21.0-32.0); POTASSIUM 5.5 MEQ/L (3.5-5.1)
[2016-12-29 12:05] LABS: CALCIUM-PROTEIN CORRECTED 7.3 MG/DL (8.5-10.1)
[2016-12-29 12:09] LABS: BICARBONATE 12.9 MEQ/L (21.0-32.0); POTASSIUM 5.6 MEQ/L (3.5-5.1)
[2016-12-29 12:54] LABS: CALCIUM-PROTEIN CORRECTED 7.4 MG/DL (8.5-10.1)
[2016-12-29] MEDS ORDERED: SODIUM POLYSTYRENE SULFONATE SUSP 15 GM/60 ML CUP PO ONE (15:00)
--- NOTE | 2016-12-29 15:18 | HHI.PR ---
Subjective Remarks Pt has NO c/o cough or fever. Pt c/o weakness. Objective Vitals Vital Signs Date Time Temp Pulse Resp B/P Pulse Ox O2 Delivery O2 Flow Rate FiO2 12/29/16 12:00 98.7 105 17 110/57 91 12/29/16 08:00 97.8 111 17 129/62 90 12/29/16 07:56 90 Nasal Cannula 2.00 12/29/16 04:14 93 Nasal Cannula 2.00 12/29/16 00:00 98.0 114 20 135/67 92 12/28/16 20:00 97.4 120 20 131/67 93 12/28/16 19:01 94 Nasal Cannula 2.00 12/28/16 16:16 95.9 122 18 138/62 92 12/28/16 12/28/16 12/29/16 15:00 23:00 07:00 Intake Total 1701 ml 1169 ml 120 ml Output Total 350 ml Balance 1351 ml 1169 ml 120 ml Intake Oral 320 ml 120 ml IV Total 1701 ml 849 ml Output Urine Total 350 ml # Voids 1 3 # Bowel Movements 1 1 3 Result Diagram: 12/28/16 0520 12/29/16 1124 Imaging Last Impressions Pelvis X-Ray 12/26/16 1343 Signed Impressions: Service Date/Time: Monday, December 26, 2016 13:56 - CONCLUSION: No acute disease. Dave Serna MD Head CT 12/26/16 1343 Signed Impressions: Service Date/Time: Monday, December 26, 2016 14:53 - CONCLUSION: No acute intracranial abnormality. Dave Ibanez MD Cervical Spine CT 12/26/16 1343 Signed Impressions: Service Date/Time: Monday, December 26, 2016 14:53 - CONCLUSION: Intact cervical spine. Degenerative changes as above. Dave Ibanez MD Maxillofacial CT 12/26/16 0000 Signed Impressions: Service Date/Time: Monday, December 26, 2016 14:53 - CONCLUSION: 1. No facial fracture. 2. Diffusely heterogeneous marrow. Please see above. Dave Ibanez MD Chest X-Ray 12/26/16 0000 Signed Impressions: Service Date/Time: Monday, December 26, 2016 14:51 - CONCLUSION: Mild, nonspecific consolidation of the left lung. Dave Ibanez MD Chest CT 12/26/16 0000 Signed Impressions: Service Date/Time: Monday, December 26, 2016 14:59 - CONCLUSION: 1. Nothing convincing for acute trauma to the chest. 2. Patchy infiltrates in both mid and lower lungs that are most likely pre-existing, infectious or inflammatory. 3. Small pericardial effusion also probably nonacute. 4. Upper limits of normal size mediastinal lymph nodes without anything clearly pathologic. 5. Left breast surgery. 6. Coronary artery calcification. Dave Ibanez MD Objective Remarks GENERAL: This is a well-nourished, well-developed patient, in no apparent distress. CARDIOVASCULAR: Regular rate and rhythm without murmurs, gallops, or rubs. RESPIRATORY: Clear to auscultation. Breath sounds equal bilaterally. No wheezes , rales, or rhonchi. GASTROINTESTINAL: Abdomen soft, non-tender, nondistended. Normal active bowel sounds MUSCULOSKELETAL: Extremities without clubbing, cyanosis, or edema. NEURO: Alert & Oriented x4 to person, place, time, situation. Moves all ext x4 A/P Problem List: (1) DOMENICA (acute kidney injury) Status: Acute Plan: - US kidneys, bladder, ureters (12/27/16) --> increased echogenicity of both kidneys c/w medical renal disease - continues to worsen - comgmt with Nephrology - Case d/w Dr. Parry (12/29/16) - NO improvement in pt's Creatinine, 5.34 (12/29/16) - Pt now wished to proceed with HD - NPO after MN for VasCath, then likely start HD afterwards - change IVFs to NS (2) Hyperkalemia Status: Acute Plan: - see above (3) Hypocalcemia Status: Acute Plan: - likely d/t acute illness & poor nutritional status - replete - repeat labs in AM (4) Fall Status: Acute Plan: Pt is 86 yo s/p fall/dizziness with loc facial trauma/contusions - domenica probably dehydrations - cough/chills..chest infiltrates concerning for pna - could consider radiation lung changes. - She has CLL and chonic leukocytosis. - s/p radiation for breast ca recently - PT - dvt proohylaxis hold arb until renal function improves. (5) Contusion of face Status: Acute Plan: above (6) Pneumonia Status: Acute Plan: - leukocytosis improved from admission, but pt has underlying CLL - WBC 31.5 (12/26/16), 21.5 (12/27/16), 22.6 (12/28/16) - continue Rocephin and azithromycin thru (12/31/16) - duonebs q6h while awake - repeat CBC in AM - Blood Culture negative at 3 day (7) CLL (chronic lymphocytic leukemia) Status: Chronic Plan: follows with dr simms (8) Breast CA Status: Chronic Plan: s/p lumpectomy and radiation. (9) Vaginal prolapse Status: Acute Plan: - f/u with attraction attendant outpt Problem Qualifiers (1) Contusion of face: Qualified Code: S00.83XD - Contusion of face, subsequent encounter (2) Pneumonia: Qualified Code: J18.9 - Pneumonia of both lower lobes due to infectious organism Thom Murillo DO Dec 29, 2016 15:18
[2016-12-29] MEDS: SODIUM CHLOR 0.9% 1000 ML INJ 1,000 ML IV SCH (15:31)
[2016-12-29] MEDS ORDERED: CALCIUM GLUCONATE INJ 1 GM in SODIUM CHLORIDE 0.9% INJ 100 ML IV ONE (16:00)
[2016-12-29] MEDS: traZODone HCL 50 MG TAB PO SCH (20:47)
[2016-12-30] VITALS: BP 96/64; PULSE 111; RESP 18; TEMP 97.8; O2SAT 93
[2016-12-30] MEDS: RESP: ALBUTEROL 2.5 MG/IPRATROPIUM 0.5 MG NEB (PRN) NEB (04:02)
[2016-12-30] MEDS: SODIUM CHLOR 0.9% 1000 ML INJ 1,000 ML IV SCH ×2 (04:20→17:40)
[2016-12-30 06:18] LABS: BICARBONATE 10.8 MEQ/L (21.0-32.0); POTASSIUM 5.4 MEQ/L (3.5-5.1)
[2016-12-30 06:44] LABS: CALCIUM-PROTEIN CORRECTED 7.5 MG/DL (8.5-10.1)
[2016-12-30 08:00] VITALS: BP 115/56; PULSE 114; RESP 17; TEMP 95.7; O2SAT 92
[2016-12-30] MEDS: RESP: ALBUTEROL 2.5 MG/IPRATROPIUM 0.5 MG NEB (SCH) NEB ×3 (08:00→14:00)
[2016-12-30] MEDS: ANASTROZOLE 1 MG TAB PO SCH (08:22)
[2016-12-30] MEDS: AZITHROMYCIN INJ 500 MG in SODIUM CHLOR 0.9% 250 ML INJ 250 ML IV SCH (08:22)
[2016-12-30] MEDS: cefTRIAXone INJ 1,000 MG in SODIUM CHLORIDE 0.9% INJ 100 ML IV SCH (08:23)
[2016-12-30] MEDS: ASPIRIN 81 MG CHEW TAB CHEW SCH (08:23)
[2016-12-30] MEDS: guaiFENesin E.R. 600 MG TAB PO SCH ×2 (08:23→21:49)
[2016-12-30] MEDS: ATORVASTATIN 80 MG TAB PO SCH (08:23)
[2016-12-30] MEDS: amLODIPine BESYLATE 5 MG TAB PO SCH ×2 (08:23→21:49)
[2016-12-30 09:48] VITALS: O2SAT 92
[2016-12-30] MEDS ORDERED: SODIUM CHLOR 0.9% 1000 ML INJ 1,000 ML IV PRN ×2 (10:20)
[2016-12-30] MEDS ORDERED: SODIUM CHLORIDE 0.9% FLUSH 5 ML FLUSH IVF PRN ×2 (10:30→13:15)
[2016-12-30] MEDS ORDERED: GELATIN 12 MM/7 MM FOAM TOP PRN (10:30)
[2016-12-30] MEDS ORDERED: diphenhydrAMINE HCL 25 MG CAP PO PRN (10:30)
[2016-12-30] MEDS ORDERED: cloNIDine HCL 0.1 MG TAB PO PRN (10:30)
[2016-12-30] MEDS ORDERED: NITROGLYCERIN 0.4 MG SL 25 TABS/BTL SL PRN (10:30)
[2016-12-30] MEDS ORDERED: HEPARIN SODIUM - IV 10,000 UNITS/10 ML VIAL IVF PRN ×2 (10:30→13:15)
[2016-12-30] MEDS ORDERED: ALBUMIN HUMAN 25% 25 GM/100 ML BAGP IV PRN (10:30)
[2016-12-30] MEDS ORDERED: MANNITOL 12.5 GM/50 ML VIAL IV PRN (10:30)
[2016-12-30] MEDS: PROMETHAZINE HCL 25 MG TAB PO PRN ×2 (11:22→21:49)
--- NOTE | 2016-12-30 11:36 | HHI.NPPN ---
Subjective General Problems: Anemia Renal Failure: Chronic, Acute, Stage III History of Present Illness 86-year-old female with a past medical history of chronic lymphocytic leukemia, history of breast cancer, hypertension, hyperlipidemia, stage III chronic kidney disease who came to the hospital with complaint of a history of fall and cough for four days before admission. I was called to see the patient because of elevated BUN and creatinine. The patient has a history of chronic kidney disease and she has been following with me in the office. Her last creatinine was done. The baseline creatinine is around 1.0 to 1.1 and the GFR around 47 to 46 cm/minute. Additional Remarks Patient is alert, have nausea, getting worse and vomited once, no SOB. Review of Systems General Constitutional: Fatigue Respiratory Lungs: SOB, Cough, Sputum, Wheeze Cardiovascular Cardiac: ZELAYA Gastrointestinal Gastrointestinal: Nausea & Vomiting Objective Data Data 12/29/16 12/30/16 19:00 07:00 Intake Total 2418 ml 692 ml Output Total 400 ml Balance 2018 ml 692 ml Intake Oral 600 ml 0 ml IV Total 1818 ml 692 ml Output Urine Total 400 ml # Voids 1 7 # Bowel Movements 1 7 Vital Signs Date Time Temp Pulse Resp B/P Pulse Ox O2 Delivery O2 Flow Rate FiO2 12/30/16 09:48 92 Nasal Cannula 5.00 12/30/16 08:00 95.7 114 17 115/56 92 12/30/16 00:00 97.8 111 18 96/64 93 12/29/16 21:01 92 Nasal Cannula 5.00 12/29/16 20:00 98.0 112 18 123/65 93 12/29/16 16:00 97.4 103 19 121/56 94 12/29/16 12:00 98.7 105 17 110/57 91 -: 12/28/16 0520 12/30/16 0507 Physical Exam General Appearance: No Acute Distress, Comfortable Eyes Eye Exam: Pupils Equal Throat Throat Exam: Oral Mucosa [place] & Moist Neck Neck Exam: Trachea Midline Pulmonary Resp Exam: No Distress, Rhonchi, Decreased Bases, Diminished Breath Sounds Cardiology CV Exam: Regular, Normal Sinus Rhythm Gastrointestinal/Abdomen GI Exam: Soft, Non-Tender, Bowel Sounds Present Extremeties Extremities Exam: No Edema Neurologic Neuro Exam: Alert, Awake Psychiatric Psych Exam: Appropriate Responses Assessment/Plan Assessment Summary: DOMENICA/Acute Renal Failure, Hypertension, CKD Stage III Problem List: (1) CLL (chronic lymphocytic leukemia) (2) Contusion of face (3) Fall (4) Breast CA (5) Pneumonia (6) DOMENICA (acute kidney injury) Plan Patient has been non oliguric. BP is stable. WBC still elevated. Creatinine continue to increase. Hco3 decreasing, K is better. Possibly has ATN or A. Interstitial Nephritis. Continue IVF and antibiotics. Need to start HD, will be going down for VasCath. HD in the afternoon today. Problem Qualifiers (1) Contusion of face: Qualified Code: S00.83XD - Contusion of face, subsequent encounter (2) Pneumonia: Qualified Code: J18.9 - Pneumonia of both lower lobes due to infectious organism Marysol Parry MD Dec 30, 2016 11:36
[2016-12-30 12:00] VITALS: BP 114/56; PULSE 110; RESP 19; TEMP 95.6; O2SAT 92
--- NOTE | 2016-12-30 13:13 | PD.RAD ---
Post Procedure Progress Note Pre Procedure Diagnosis: (1) Renal insufficiency (2) DOMENICA (acute kidney injury) Post Procedure Diagnosis: (1) Renal insufficiency (2) DOMENICA (acute kidney injury) Procedure Date: Dec 30, 2016 Supervising Radiologist: Steve Ponce JR Proceduralist/Assist: Izzy Castillo, RT(R), Vida Mooney RT(R)() Anesthesia: Local Plan of Activity Patient to Unit: Nursing Unit Patient Condition: Good See PACS Report for procedural detail/treatment Central Venous Access Device Procedure 1 Right Internal Jugular Hemodialysis Catheter Non-Tunneled Placement dual lumen Malagasy: 14 Findings: Catheter is in good position and works well. Ok to use. Jr. Kris,Steve Saenz MD Dec 30, 2016 13:13
[2016-12-30] MEDS: SODIUM CHLOR 0.9% 1000 ML INJ 1,000 ML IV PRN (13:32)
[2016-12-30] MEDS: HEPARIN SODIUM - IV 10,000 UNITS/10 ML VIAL PRN (13:32)
[2016-12-30] MEDS: GENTAMICIN SULFATE (DIALYSIS USE ONLY) 20 MG/2 ML VIAL IV PRN (13:32)
--- NOTE | 2016-12-30 14:52 | HHI.PR ---
Subjective Remarks Pt had VasCath placed by IR. Pt to underwent first HD treatment today. Objective Vitals Vital Signs Date Time Temp Pulse Resp B/P Pulse Ox O2 Delivery O2 Flow Rate FiO2 12/30/16 12:00 95.6 110 19 114/56 92 12/30/16 09:48 92 Nasal Cannula 5.00 12/30/16 08:00 95.7 114 17 115/56 92 12/30/16 00:00 97.8 111 18 96/64 93 12/29/16 21:01 92 Nasal Cannula 5.00 12/29/16 20:00 98.0 112 18 123/65 93 12/29/16 16:00 97.4 103 19 121/56 94 12/29/16 12/29/16 12/30/16 15:00 23:00 07:00 Intake Total 1938 ml 1172 ml 0 ml Output Total 400 ml Balance 1938 ml 772 ml 0 ml Intake Oral 120 ml 480 ml 0 ml IV Total 1818 ml 692 ml Output Urine Total 400 ml # Voids 3 5 # Bowel Movements 3 5 Result Diagram: 12/28/16 0520 12/30/16 0507 Imaging Last Impressions Renal Ultrasound 12/27/16 0000 Signed Impressions: Service Date/Time: Tuesday, December 27, 2016 20:43 - CONCLUSION: 1. There is increased echogenicity of both kidneys. This suggests chronic medical renal disease. 2. No hydronephrosis. 3. Small benign left renal cyst. 4. Mild right perinephric edema. Osmin Amos MD Pelvis X-Ray 12/26/16 1343 Signed Impressions: Service Date/Time: Monday, December 26, 2016 13:56 - CONCLUSION: No acute disease. Dave Serna MD Head CT 12/26/16 1343 Signed Impressions: Service Date/Time: Monday, December 26, 2016 14:53 - CONCLUSION: No acute intracranial abnormality. Dave Ibanez MD Cervical Spine CT 12/26/16 1343 Signed Impressions: Service Date/Time: Monday, December 26, 2016 14:53 - CONCLUSION: Intact cervical spine. Degenerative changes as above. Dave Ibanez MD Maxillofacial CT 12/26/16 0000 Signed Impressions: Service Date/Time: Monday, December 26, 2016 14:53 - CONCLUSION: 1. No facial fracture. 2. Diffusely heterogeneous marrow. Please see above. Dave Ibanez MD Chest X-Ray 12/26/16 0000 Signed Impressions: Service Date/Time: Monday, December 26, 2016 14:51 - CONCLUSION: Mild, nonspecific consolidation of the left lung. Dave Ibanez MD Chest CT 12/26/16 0000 Signed Impressions: Service Date/Time: Monday, December 26, 2016 14:59 - CONCLUSION: 1. Nothing convincing for acute trauma to the chest. 2. Patchy infiltrates in both mid and lower lungs that are most likely pre-existing, infectious or inflammatory. 3. Small pericardial effusion also probably nonacute. 4. Upper limits of normal size mediastinal lymph nodes without anything clearly pathologic. 5. Left breast surgery. 6. Coronary artery calcification. Dave Ibanez MD Objective Remarks GENERAL: This is a well-nourished, well-developed patient, in no apparent distress. CARDIOVASCULAR: Regular rate and rhythm without murmurs, gallops, or rubs. RESPIRATORY: Clear to auscultation. Breath sounds equal bilaterally. No wheezes , rales, or rhonchi. GASTROINTESTINAL: Abdomen soft, non-tender, nondistended. Normal active bowel sounds MUSCULOSKELETAL: Extremities without clubbing, cyanosis, or edema. NEURO: Alert & Oriented x4 to person, place, time, situation. Moves all ext x4 A/P Problem List: (1) DOMENICA (acute kidney injury) Status: Acute Plan: - comgmt with Nephrology - US kidneys, bladder, ureters (12/27/16) --> increased echogenicity of both kidneys c/w medical renal disease - Case d/w Dr. Parry (12/29/16) - NO improvement in pt's Creatinine, 5.34 (12/30/16) - Pt had VasCath placed (12/30/16) - Pt had first HD (12/30/16), pt will repeat HD (12/31/16) (2) Hyperkalemia Status: Acute Plan: - see above (3) Hypocalcemia Status: Acute Plan: - likely d/t acute illness & poor nutritional status - replete 12/29 - repeat labs in AM, again (4) Fall Status: Acute Plan: Pt is 86 yo s/p fall/dizziness with loc facial trauma/contusions - domenica probably dehydrations - cough/chills..chest infiltrates concerning for pna - could consider radiation lung changes. - She has CLL and chonic leukocytosis. - s/p radiation for breast ca recently - PT - dvt proohylaxis hold arb until renal function improves. (5) Contusion of face Status: Acute Plan: above (6) Pneumonia Status: Acute Plan: - leukocytosis improved from admission, but pt has underlying CLL - WBC 31.5 (12/26/16), 21.5 (12/27/16), 22.6 (12/28/16) - continue Rocephin and azithromycin thru (12/31/16) - duonebs q6h while awake - repeat CBC in AM - Blood Culture negative at 3 day (7) CLL (chronic lymphocytic leukemia) Status: Chronic Plan: follows with dr simms (8) Breast CA Status: Chronic Plan: s/p lumpectomy and radiation. (9) Vaginal prolapse Status: Acute Plan: - f/u with assistant pastry chef outpt Problem Qualifiers (1) Contusion of face: Qualified Code: S00.83XD - Contusion of face, subsequent encounter (2) Pneumonia: Qualified Code: J18.9 - Pneumonia of both lower lobes due to infectious organism Thom Murillo DO Dec 30, 2016 14:52
--- NOTE | 2016-12-30 15:21 | RADRPT ---
EXAM DATE/TIME: 12/30/2016 12:27 [facility] COMPARISON: No previous studies available for comparison. INDICATIONS : Patient with kidney disease in need of dialysis catheter placement. MEDICAL HISTORY : Left breast cancer, Radiation, Chronic lymphocytic leukemia, HTN, HLD, Chronic kidney disease III SURGICAL HISTORY : Cardiac stent 1994, Appendectomy, Left lumpectomy ENCOUNTER: Initial ACUITY: 4-6 days PAIN SCORE: 0/10 FLUORO TIME: 0.2 minutes IMAGE SERIES: 1 ACCESS: Right internal jugular vein DEVICE(S): 1.) 14 Japanese dual lumen 15 cm Vas Cath PROCEDURE : 1. Ultrasound guided venipuncture. 2. Fluoroscopic guidance. 3. Central line placement. The risks, benefits and alternatives to the procedure were explained and verbal and written consent w as obtained. The site was prepped in sterile fashion. Full sterile technique was used, including ca p, mask, sterile gloves and gown and a large sterile sheet. Hand hygiene and 2% chlorhexidine prep w as utilized per protocol for cutaneous antisepsis with appropriate dry time for site. The skin and subcutaneous tissues were infiltrated with local anesthetic solution. A suitable site a bell the vein was selected with ultrasound and fluoroscopic guidance. A small incision was made. Th e vein was accessed under direct ultrasound visualization using the micropuncture technique. The shirley ropuncture set was exchanged for a 0.035 wire. The tract was dilated. The catheter was advanced int o position under direct fluoroscopic visualization. The catheter was fixed in place with suture and a sterile dressing was applied. The patient tolerated the procedure well and there were no complications. CONCLUSION: Uncomplicated line placement as above. Steve Ponce Jr., MD on December 30, 2016 at 15:19 Board Certified Radiologist. This report was verified electronically.
[2016-12-30 16:00] VITALS: BP 141/65; PULSE 117; RESP 19; TEMP 96.6; O2SAT 94
[2016-12-30 20:00] VITALS: BP 129/70; PULSE 116; RESP 18; TEMP 98.5; O2SAT 93
[2016-12-30] MEDS: traZODone HCL 50 MG TAB PO SCH (21:49)
[2016-12-31] VITALS (7 sets, daily range): BP systolic 128–147; BP diastolic 61–64; PULSE 90–119; RESP 15–20; TEMP 96.7–99.1; O2SAT 89–95
[2016-12-31] MEDS: SODIUM CHLOR 0.9% 1000 ML INJ 1,000 ML IV SCH ×2 (07:00→20:17)
[2016-12-31] MEDS: amLODIPine BESYLATE 5 MG TAB PO SCH ×2 (08:54→20:17)
[2016-12-31] MEDS: ATORVASTATIN 80 MG TAB PO SCH (08:54)
[2016-12-31] MEDS: cefTRIAXone INJ 1,000 MG in SODIUM CHLORIDE 0.9% INJ 100 ML IV SCH (08:54)
[2016-12-31] MEDS: ASPIRIN 81 MG CHEW TAB CHEW SCH (08:56)
[2016-12-31] MEDS: ANASTROZOLE 1 MG TAB PO SCH (08:56)
[2016-12-31] MEDS: guaiFENesin E.R. 600 MG TAB PO SCH ×2 (08:56→20:17)
--- NOTE | 2016-12-31 11:20 | HHI.NPPN ---
Subjective General Problems: Anemia Renal Failure: Chronic, Acute, Stage III History of Present Illness 86-year-old female with a past medical history of chronic lymphocytic leukemia, history of breast cancer, hypertension, hyperlipidemia, stage III chronic kidney disease who came to the hospital with complaint of a history of fall and cough for four days before admission. I was called to see the patient because of elevated BUN and creatinine. The patient has a history of chronic kidney disease and she has been following with me in the office. Her last creatinine was done. The baseline creatinine is around 1.0 to 1.1 and the GFR around 47 to 46 cm/minute. Additional Remarks Patient is alert, nausea is better, no SOB. Review of Systems General Constitutional: Fatigue Respiratory Lungs: SOB, Cough, Sputum, Wheeze Cardiovascular Cardiac: ZELAYA Gastrointestinal Gastrointestinal: Nausea & Vomiting Objective Data Data 12/30/16 12/31/16 19:00 07:00 Intake Total 1301 ml 0 ml Output Total 3000 ml Balance -1699 ml 0 ml Intake Oral 0 ml 0 ml IV Total 1301 ml Hemodialysis 3000 ml # Voids 3 5 # Bowel Movements 1 8 Vital Signs Date Time Temp Pulse Resp B/P Pulse Ox O2 Delivery O2 Flow Rate FiO2 12/31/16 08:35 89 Nasal Cannula 5.00 12/31/16 08:25 98.1 97 20 128/61 91 12/31/16 00:00 98.1 110 18 128/64 92 12/30/16 20:00 98.5 116 18 129/70 93 12/30/16 16:00 96.6 117 19 141/65 94 12/30/16 12:00 95.6 110 19 114/56 92 -: 12/28/16 0520 12/30/16 0507 Physical Exam General Appearance: No Acute Distress, Comfortable Eyes Eye Exam: Pupils Equal Throat Throat Exam: Oral Mucosa [place] & Moist Neck Neck Exam: Trachea Midline Pulmonary Resp Exam: No Distress, Rhonchi, Decreased Bases, Diminished Breath Sounds Cardiology CV Exam: Regular, Normal Sinus Rhythm Gastrointestinal/Abdomen GI Exam: Soft, Non-Tender, Bowel Sounds Present Extremeties Extremities Exam: No Edema Neurologic Neuro Exam: Alert, Awake Psychiatric Psych Exam: Appropriate Responses Assessment/Plan Assessment Summary: DOMENICA/Acute Renal Failure, Hypertension, CKD Stage III Problem List: (1) CLL (chronic lymphocytic leukemia) (2) Contusion of face (3) Fall (4) Breast CA (5) Pneumonia (6) DOMENICA (acute kidney injury) Plan Patient has been non oliguric. BP is stable. WBC still elevated. Creatinine continue to increase. Hco3 decreasing, K is better. Possibly has ATN or A. Interstitial Nephritis. Continue IVF and antibiotics. Started on HD and done yesterday. 3 liters removed. HD again today. Has been non oliguric. Watch for renal recovery.D/W the daughter at bed side. Problem Qualifiers (1) Contusion of face: Qualified Code: S00.83XD - Contusion of face, subsequent encounter (2) Pneumonia: Qualified Code: J18.9 - Pneumonia of both lower lobes due to infectious organism Marysol Parry MD Dec 31, 2016 11:20
[2016-12-31] MEDS: GENTAMICIN SULFATE (DIALYSIS USE ONLY) 20 MG/2 ML VIAL IV PRN (15:50)
[2016-12-31] MEDS: HEPARIN SODIUM - IV 10,000 UNITS/10 ML VIAL PRN (15:50)
--- NOTE | 2016-12-31 16:43 | HHI.PR ---
Subjective Remarks No new complaints. Objective Vitals Vital Signs Date Time Temp Pulse Resp B/P Pulse Ox O2 Delivery O2 Flow Rate FiO2 12/31/16 12:00 96.7 118 15 133/62 94 12/31/16 08:35 89 Nasal Cannula 5.00 12/31/16 08:25 98.1 97 20 128/61 91 12/31/16 00:00 98.1 110 18 128/64 92 12/30/16 20:00 98.5 116 18 129/70 93 12/30/16 12/30/16 12/31/16 15:00 23:00 07:00 Intake Total 1301 ml 0 ml 0 ml Output Total 3000 ml Balance 1301 ml -3000 ml 0 ml Intake Oral 0 ml 0 ml 0 ml IV Total 1301 ml Hemodialysis 3000 ml # Voids 3 5 # Bowel Movements 1 3 5 Result Diagram: 12/28/16 0520 12/30/16 0507 Imaging Last Impressions Renal Ultrasound 12/27/16 0000 Signed Impressions: Service Date/Time: Tuesday, December 27, 2016 20:43 - CONCLUSION: 1. There is increased echogenicity of both kidneys. This suggests chronic medical renal disease. 2. No hydronephrosis. 3. Small benign left renal cyst. 4. Mild right perinephric edema. Osmin Amos MD Pelvis X-Ray 12/26/16 1343 Signed Impressions: Service Date/Time: Monday, December 26, 2016 13:56 - CONCLUSION: No acute disease. Dave Serna MD Head CT 12/26/16 1343 Signed Impressions: Service Date/Time: Monday, December 26, 2016 14:53 - CONCLUSION: No acute intracranial abnormality. Dave Ibanez MD Cervical Spine CT 12/26/16 1343 Signed Impressions: Service Date/Time: Monday, December 26, 2016 14:53 - CONCLUSION: Intact cervical spine. Degenerative changes as above. Dave Ibanez MD Maxillofacial CT 12/26/16 0000 Signed Impressions: Service Date/Time: Monday, December 26, 2016 14:53 - CONCLUSION: 1. No facial fracture. 2. Diffusely heterogeneous marrow. Please see above. Dave Ibanez MD Chest X-Ray 12/26/16 0000 Signed Impressions: Service Date/Time: Monday, December 26, 2016 14:51 - CONCLUSION: Mild, nonspecific consolidation of the left lung. Dave Ibanez MD Chest CT 12/26/16 0000 Signed Impressions: Service Date/Time: Monday, December 26, 2016 14:59 - CONCLUSION: 1. Nothing convincing for acute trauma to the chest. 2. Patchy infiltrates in both mid and lower lungs that are most likely pre-existing, infectious or inflammatory. 3. Small pericardial effusion also probably nonacute. 4. Upper limits of normal size mediastinal lymph nodes without anything clearly pathologic. 5. Left breast surgery. 6. Coronary artery calcification. Dave Ibanez MD Objective Remarks GENERAL: This is a well-nourished, well-developed patient, in no apparent distress. CARDIOVASCULAR: Regular rate and rhythm without murmurs, gallops, or rubs. RESPIRATORY: Clear to auscultation. Breath sounds equal bilaterally. No wheezes , rales, or rhonchi. GASTROINTESTINAL: Abdomen soft, non-tender, nondistended. Normal active bowel sounds MUSCULOSKELETAL: Extremities without clubbing, cyanosis, or edema. NEURO: Alert & Oriented x4 to person, place, time, situation. Moves all ext x4 A/P Problem List: (1) DOMENICA (acute kidney injury) Status: Acute Plan: - comgmt with Nephrology - US kidneys, bladder, ureters (12/27/16) --> increased echogenicity of both kidneys c/w medical renal disease - Case d/w Dr. Parry (12/29/16) - NO improvement in pt's Creatinine, 5.34 (12/30/16) - Pt had VasCath placed (12/30/16) - Underwent HD 12/30 and 12/31 - repeat labs in AM (2) Hyperkalemia Status: Acute Plan: - see above (3) Hypocalcemia Status: Acute Plan: - likely d/t acute illness & poor nutritional status - replete 12/29 - repeat labs in AM, again (4) Fall Status: Acute Plan: Pt is 86 yo s/p fall/dizziness with loc facial trauma/contusions - domenica probably dehydrations - cough/chills..chest infiltrates concerning for pna - could consider radiation lung changes. - She has CLL and chonic leukocytosis. - s/p radiation for breast ca recently - PT - dvt proohylaxis hold arb until renal function improves. (5) Contusion of face Status: Acute Plan: above (6) Pneumonia Status: Acute Plan: - leukocytosis improved from admission, but pt has underlying CLL - WBC 31.5 (12/26/16), 21.5 (12/27/16), 22.6 (12/28/16) - continue Rocephin and azithromycin thru (12/31/16) - duonebs q6h while awake - repeat CBC in AM - Blood Culture negative at 3 day (7) CLL (chronic lymphocytic leukemia) Status: Chronic Plan: follows with dr simms (8) Breast CA Status: Chronic Plan: s/p lumpectomy and radiation. (9) Vaginal prolapse Status: Acute Plan: - f/u with chef's assistant outpt Problem Qualifiers (1) Contusion of face: Qualified Code: S00.83XD - Contusion of face, subsequent encounter (2) Pneumonia: Qualified Code: J18.9 - Pneumonia of both lower lobes due to infectious organism Thom Murillo DO Dec 31, 2016 16:43
[2016-12-31] MEDS ORDERED: AZITHROMYCIN INJ 500 MG in SODIUM CHLOR 0.9% 250 ML INJ 250 ML IV SCH (17:00)
[2016-12-31] MEDS: traZODone HCL 50 MG TAB PO SCH (20:17)
[2017-01-01] VITALS: BP 130/65; PULSE 73; RESP 18; TEMP 98.9; O2SAT 94
[2017-01-01 05:36] LABS: BICARBONATE 24.8 MEQ/L (21.0-32.0); MAGNESIUM 1.8 MG/DL (1.5-2.5); POTASSIUM 3.6 MEQ/L (3.5-5.1)
[2017-01-01 08:00] VITALS: BP 114/54; PULSE 88; RESP 16; TEMP 99.4; O2SAT 92
[2017-01-01] MEDS: SODIUM CHLOR 0.9% 1000 ML INJ 1,000 ML IV SCH ×2 (08:20→21:11)
[2017-01-01] MEDS: cefTRIAXone INJ 1,000 MG in SODIUM CHLORIDE 0.9% INJ 100 ML IV SCH (08:21)
[2017-01-01] MEDS: ATORVASTATIN 80 MG TAB PO SCH (08:21)
[2017-01-01] MEDS: guaiFENesin E.R. 600 MG TAB PO SCH (08:23)
[2017-01-01] MEDS: amLODIPine BESYLATE 5 MG TAB PO SCH ×2 (08:23→21:12)
[2017-01-01] MEDS: ANASTROZOLE 1 MG TAB PO SCH (08:24)
[2017-01-01] MEDS: ASPIRIN 81 MG CHEW TAB CHEW SCH (08:24)
--- NOTE | 2017-01-01 11:29 | HHI.NPPN ---
Subjective General Problems: Anemia Renal Failure: Chronic, Acute, Stage III History of Present Illness 86-year-old female with a past medical history of chronic lymphocytic leukemia, history of breast cancer, hypertension, hyperlipidemia, stage III chronic kidney disease who came to the hospital with complaint of a history of fall and cough for four days before admission. I was called to see the patient because of elevated BUN and creatinine. The patient has a history of chronic kidney disease and she has been following with me in the office. Her last creatinine was done. The baseline creatinine is around 1.0 to 1.1 and the GFR around 47 to 46 cm/minute. Additional Remarks Patient is alert, sitting on chair, still has loose BM, started eating better. Review of Systems General Constitutional: Fatigue Respiratory Lungs: SOB, Cough, Sputum, Wheeze Cardiovascular Cardiac: ZELAYA Gastrointestinal Gastrointestinal: Nausea & Vomiting Objective Data Data 12/31/16 01/01/17 19:00 07:00 Intake Total 200 ml 1100 ml Balance 200 ml 1100 ml Intake Oral 200 ml 300 ml IV Total 800 ml # Voids 3 3 # Bowel Movements 3 3 Vital Signs Date Time Temp Pulse Resp B/P Pulse Ox O2 Delivery O2 Flow Rate FiO2 01/01/17 08:00 99.4 88 16 114/54 92 01/01/17 00:00 98.9 73 18 130/65 94 12/31/16 20:00 99.1 90 18 131/61 95 12/31/16 19:46 92 Nasal Cannula 5.00 12/31/16 16:00 97.1 119 16 147/64 92 12/31/16 12:00 96.7 118 15 133/62 94 -: 12/28/16 0520 01/01/17 0405 Physical Exam General Appearance: No Acute Distress, Comfortable Eyes Eye Exam: Pupils Equal Throat Throat Exam: Oral Mucosa [place] & Moist Neck Neck Exam: Trachea Midline Pulmonary Resp Exam: No Distress, Rhonchi, Decreased Bases, Diminished Breath Sounds Cardiology CV Exam: Regular, Normal Sinus Rhythm Gastrointestinal/Abdomen GI Exam: Soft, Non-Tender, Bowel Sounds Present Extremeties Extremities Exam: No Edema Neurologic Neuro Exam: Alert, Awake Psychiatric Psych Exam: Appropriate Responses Assessment/Plan Assessment Summary: DOMENICA/Acute Renal Failure, Hypertension, CKD Stage III Problem List: (1) CLL (chronic lymphocytic leukemia) (2) Contusion of face (3) Fall (4) Breast CA (5) Pneumonia (6) DOMENICA (acute kidney injury) Plan Patient has been non oliguric. BP is stable. WBC are chronically elevated. Hco3 decreasing, K is better. Possibly has ATN or A. Interstitial Nephritis. Continue IVF and antibiotics. Started on HD and the last was done yesterday. Has been non oliguric, but urine out put decreased. Watch for renal recovery. HD again on Tuesday. Problem Qualifiers (1) Contusion of face: Qualified Code: S00.83XD - Contusion of face, subsequent encounter (2) Pneumonia: Qualified Code: J18.9 - Pneumonia of both lower lobes due to infectious organism Marysol Parry MD Jan 01, 2017 11:29
[2017-01-01 12:00] VITALS: BP 129/73; PULSE 60; RESP 17; TEMP 98.9; O2SAT 94
--- NOTE | 2017-01-01 15:55 | HHI.PR ---
Subjective Remarks No new complaints. Objective Vitals Vital Signs Date Time Temp Pulse Resp B/P Pulse Ox O2 Delivery O2 Flow Rate FiO2 01/01/17 12:00 98.9 60 17 129/73 94 01/01/17 08:00 99.4 88 16 114/54 92 01/01/17 00:00 98.9 73 18 130/65 94 12/31/16 20:00 99.1 90 18 131/61 95 12/31/16 19:46 92 Nasal Cannula 5.00 12/31/16 16:00 97.1 119 16 147/64 92 12/31/16 12/31/16 01/01/17 15:00 23:00 07:00 Intake Total 200 ml 860 ml 240 ml Balance 200 ml 860 ml 240 ml Intake Oral 200 ml 60 ml 240 ml IV Total 800 ml # Voids 3 1 2 # Bowel Movements 3 1 2 Result Diagram: 12/28/16 0520 01/01/17 0405 Imaging Last Impressions Renal Ultrasound 12/27/16 0000 Signed Impressions: Service Date/Time: Tuesday, December 27, 2016 20:43 - CONCLUSION: 1. There is increased echogenicity of both kidneys. This suggests chronic medical renal disease. 2. No hydronephrosis. 3. Small benign left renal cyst. 4. Mild right perinephric edema. Osmin Amos MD Pelvis X-Ray 12/26/16 1343 Signed Impressions: Service Date/Time: Monday, December 26, 2016 13:56 - CONCLUSION: No acute disease. Dave Serna MD Head CT 12/26/16 1343 Signed Impressions: Service Date/Time: Monday, December 26, 2016 14:53 - CONCLUSION: No acute intracranial abnormality. Dave Ibanez MD Cervical Spine CT 12/26/16 1343 Signed Impressions: Service Date/Time: Monday, December 26, 2016 14:53 - CONCLUSION: Intact cervical spine. Degenerative changes as above. Dave Ibanez MD Maxillofacial CT 12/26/16 0000 Signed Impressions: Service Date/Time: Monday, December 26, 2016 14:53 - CONCLUSION: 1. No facial fracture. 2. Diffusely heterogeneous marrow. Please see above. Dave Ibanez MD Chest X-Ray 12/26/16 0000 Signed Impressions: Service Date/Time: Monday, December 26, 2016 14:51 - CONCLUSION: Mild, nonspecific consolidation of the left lung. Dave Ibanez MD Chest CT 12/26/16 0000 Signed Impressions: Service Date/Time: Monday, December 26, 2016 14:59 - CONCLUSION: 1. Nothing convincing for acute trauma to the chest. 2. Patchy infiltrates in both mid and lower lungs that are most likely pre-existing, infectious or inflammatory. 3. Small pericardial effusion also probably nonacute. 4. Upper limits of normal size mediastinal lymph nodes without anything clearly pathologic. 5. Left breast surgery. 6. Coronary artery calcification. Dave Ibanez MD Objective Remarks GENERAL: This is a well-nourished, well-developed patient, in no apparent distress. CARDIOVASCULAR: Regular rate and rhythm without murmurs, gallops, or rubs. RESPIRATORY: Clear to auscultation. Breath sounds equal bilaterally. No wheezes , rales, or rhonchi. GASTROINTESTINAL: Abdomen soft, non-tender, nondistended. Normal active bowel sounds MUSCULOSKELETAL: Extremities without clubbing, cyanosis, or edema. NEURO: Alert & Oriented x4 to person, place, time, situation. Moves all ext x4 A/P Problem List: (1) DOMENICA (acute kidney injury) Status: Acute Plan: - comgmt with Nephrology - US kidneys, bladder, ureters (12/27/16) --> increased echogenicity of both kidneys c/w medical renal disease - Case d/w Dr. Parry (12/29/16) - NO improvement in pt's Creatinine, 5.34 (12/30/16) - Pt had VasCath placed (12/30/16) - Underwent HD 12/30 and 12/31 - Next HD 01/03/17 - continue IVFs (2) Hyperkalemia Status: Acute Plan: - see above (3) Hypocalcemia Status: Acute Plan: - likely d/t acute illness & poor nutritional status - replete 12/29 - repeat labs in AM, again (4) Fall Status: Acute Plan: Pt is 86 yo s/p fall/dizziness with loc facial trauma/contusions - domenica probably dehydrations - cough/chills..chest infiltrates concerning for pna - could consider radiation lung changes. - She has CLL and chonic leukocytosis. - s/p radiation for breast ca recently - PT - dvt proohylaxis hold arb until renal function improves. (5) Contusion of face Status: Acute Plan: above (6) Pneumonia Status: Acute Plan: - leukocytosis improved from admission, but pt has underlying CLL - WBC 31.5 (12/26/16), 21.5 (12/27/16), 22.6 (12/28/16) - continue Rocephin and azithromycin (12/27/16 - 01/01/17) - duonebs q6h while awake - repeat CBC in AM - Blood Culture negative at 3 day (7) CLL (chronic lymphocytic leukemia) Status: Chronic Plan: follows with dr simms (8) Breast CA Status: Chronic Plan: s/p lumpectomy and radiation. (9) Vaginal prolapse Status: Acute Plan: - f/u with wrapping machine tender outpt Problem Qualifiers (1) Contusion of face: Qualified Code: S00.83XD - Contusion of face, subsequent encounter (2) Pneumonia: Qualified Code: J18.9 - Pneumonia of both lower lobes due to infectious organism Thom Murillo DO Jan 01, 2017 15:55
[2017-01-01 16:00] VITALS: BP 131/63; PULSE 84; RESP 16; TEMP 99.3; O2SAT 94
[2017-01-01 20:00] VITALS: BP 163/76; PULSE 99; RESP 20; TEMP 96.4; O2SAT 94
[2017-01-01] MEDS: traZODone HCL 50 MG TAB PO SCH (21:12)
[2017-01-02] VITALS (7 sets, daily range): BP systolic 132–157; BP diastolic 65–77; PULSE 94–98; RESP 16–22; TEMP 96.9–98.1; O2SAT 92–96
[2017-01-02] MEDS: SODIUM CHLOR 0.9% 1000 ML INJ 1,000 ML IV SCH ×2 (08:54→20:04)
[2017-01-02] MEDS: amLODIPine BESYLATE 5 MG TAB PO SCH ×2 (08:55→20:04)
[2017-01-02] MEDS: ACETAMINOPHEN 325 MG TAB PO PRN (08:55)
[2017-01-02] MEDS: ATORVASTATIN 80 MG TAB PO SCH (08:55)
[2017-01-02] MEDS: ASPIRIN 81 MG CHEW TAB CHEW SCH (08:55)
[2017-01-02] MEDS: ANASTROZOLE 1 MG TAB PO SCH (08:55)
--- NOTE | 2017-01-02 11:16 | HHI.NPPN ---
Subjective General Problems: Anemia Renal Failure: Chronic, Acute, Stage III History of Present Illness 86-year-old female with a past medical history of chronic lymphocytic leukemia, history of breast cancer, hypertension, hyperlipidemia, stage III chronic kidney disease who came to the hospital with complaint of a history of fall and cough for four days before admission. I was called to see the patient because of elevated BUN and creatinine. The patient has a history of chronic kidney disease and she has been following with me in the office. Her last creatinine was done. The baseline creatinine is around 1.0 to 1.1 and the GFR around 47 to 46 cm/minute. Additional Remarks Patient is alert, did not sleep well last night, no SOB, BM is better. Review of Systems General Constitutional: Fatigue Respiratory Lungs: SOB, Cough, Sputum, Wheeze Cardiovascular Cardiac: ZELAYA Gastrointestinal Gastrointestinal: Nausea & Vomiting Objective Data Data 01/01/17 01/02/17 19:00 07:00 Intake Total 360 ml 1615 ml Output Total 500 ml 250 ml Balance -140 ml 1365 ml Intake Oral 360 ml 360 ml IV Total 1255 ml Output Urine Total 400 ml 250 ml Stool Total 100 ml # Voids 4 3 # Bowel Movements 4 2 Vital Signs Date Time Temp Pulse Resp B/P Pulse Ox O2 Delivery O2 Flow Rate FiO2 01/02/17 08:00 97.9 97 16 140/71 96 01/02/17 00:06 98.1 97 22 157/77 94 01/01/17 20:00 96.4 99 20 163/76 94 01/01/17 16:00 99.3 84 16 131/63 94 01/01/17 12:00 98.9 60 17 129/73 94 -: 01/01/17 0405 Physical Exam General Appearance: No Acute Distress, Comfortable Eyes Eye Exam: Pupils Equal Throat Throat Exam: Oral Mucosa [place] & Moist Neck Neck Exam: Trachea Midline Pulmonary Resp Exam: No Distress, Rhonchi, Decreased Bases, Diminished Breath Sounds Cardiology CV Exam: Regular, Normal Sinus Rhythm Gastrointestinal/Abdomen GI Exam: Soft, Non-Tender, Bowel Sounds Present Extremeties Extremities Exam: No Edema Neurologic Neuro Exam: Alert, Awake Psychiatric Psych Exam: Appropriate Responses Assessment/Plan Assessment Summary: DOMENICA/Acute Renal Failure, Hypertension, CKD Stage III Problem List: (1) CLL (chronic lymphocytic leukemia) (2) Contusion of face (3) Fall (4) Breast CA (5) Pneumonia (6) DOMENICA (acute kidney injury) Plan Patient has been non oliguric. BP is stable. WBC are chronically elevated. Hco3 decreasing, K is better. Possibly has ATN or A. Interstitial Nephritis. Continue IVF and antibiotics. Started on HD and the last was done Tuesday. Has been non oliguric, but urine out put decreased. Watch for renal recovery. BMP in AM and possible HD. Ambien for sleep, PRN. Problem Qualifiers (1) Contusion of face: Qualified Code: S00.83XD - Contusion of face, subsequent encounter (2) Pneumonia: Qualified Code: J18.9 - Pneumonia of both lower lobes due to infectious organism Marysol Parry MD Jan 02, 2017 11:16
--- NOTE | 2017-01-02 16:49 | HHI.PR ---
Subjective Remarks No new complaints. Objective Vitals Vital Signs Date Time Temp Pulse Resp B/P Pulse Ox O2 Delivery O2 Flow Rate FiO2 01/02/17 16:00 98.0 94 17 139/68 95 01/02/17 12:00 96.9 94 16 132/65 94 01/02/17 08:30 92 Nasal Cannula 3.00 01/02/17 08:00 97.9 97 16 140/71 96 01/02/17 00:06 98.1 97 22 157/77 94 01/01/17 20:00 96.4 99 20 163/76 94 01/01/17 01/01/17 01/02/17 15:00 23:00 07:00 Intake Total 360 ml 850 ml 765 ml Output Total 300 ml 200 ml 250 ml Balance 60 ml 650 ml 515 ml Intake Oral 360 ml 240 ml 120 ml IV Total 610 ml 645 ml Output Urine Total 200 ml 200 ml 250 ml Stool Total 100 ml # Voids 3 4 # Bowel Movements 4 0 2 Result Diagram: 01/01/17 0405 Imaging Last Impressions Renal Ultrasound 12/27/16 0000 Signed Impressions: Service Date/Time: Tuesday, December 27, 2016 20:43 - CONCLUSION: 1. There is increased echogenicity of both kidneys. This suggests chronic medical renal disease. 2. No hydronephrosis. 3. Small benign left renal cyst. 4. Mild right perinephric edema. Osmin Amos MD Pelvis X-Ray 12/26/163 Signed Impressions: Service Date/Time: Monday, December 26, 2016 13:56 - CONCLUSION: No acute disease. Dave Serna MD Head CT 12/26/16 1343 Signed Impressions: Service Date/Time: Monday, December 26, 2016 14:53 - CONCLUSION: No acute intracranial abnormality. Dave Ibanez MD Cervical Spine CT 12/26/16 1343 Signed Impressions: Service Date/Time: Monday, December 26, 2016 14:53 - CONCLUSION: Intact cervical spine. Degenerative changes as above. Dave Ibanez MD Maxillofacial CT 12/26/16 0000 Signed Impressions: Service Date/Time: Monday, December 26, 2016 14:53 - CONCLUSION: 1. No facial fracture. 2. Diffusely heterogeneous marrow. Please see above. Dave Ibanez MD Chest X-Ray 12/26/16 0000 Signed Impressions: Service Date/Time: Monday, December 26, 2016 14:51 - CONCLUSION: Mild, nonspecific consolidation of the left lung. Dave Ibanez MD Chest CT 12/26/16 0000 Signed Impressions: Service Date/Time: Monday, December 26, 2016 14:59 - CONCLUSION: 1. Nothing convincing for acute trauma to the chest. 2. Patchy infiltrates in both mid and lower lungs that are most likely pre-existing, infectious or inflammatory. 3. Small pericardial effusion also probably nonacute. 4. Upper limits of normal size mediastinal lymph nodes without anything clearly pathologic. 5. Left breast surgery. 6. Coronary artery calcification. Dave Ibanez MD Objective Remarks GENERAL: This is a well-nourished, well-developed patient, in no apparent distress. CARDIOVASCULAR: Regular rate and rhythm without murmurs, gallops, or rubs. RESPIRATORY: Clear to auscultation. Breath sounds equal bilaterally. No wheezes , rales, or rhonchi. GASTROINTESTINAL: Abdomen soft, non-tender, nondistended. Normal active bowel sounds MUSCULOSKELETAL: Extremities without clubbing, cyanosis, or edema. NEURO: Alert & Oriented x4 to person, place, time, situation. Moves all ext x4 A/P Problem List: (1) DOMENICA (acute kidney injury) Status: Acute Plan: - comgmt with Nephrology - US kidneys, bladder, ureters (12/27/16) --> increased echogenicity of both kidneys c/w medical renal disease - Case d/w Dr. Parry (12/29/16) - NO improvement in pt's Creatinine, 5.34 (12/30/16) - Pt had VasCath placed (12/30/16) - Underwent HD 12/30 and 12/31 - Next HD 01/03/17 - continue IVFs - repeat BMP, Mag, phos in AM (2) Hyperkalemia Status: Acute Plan: - see above (3) Hypocalcemia Status: Acute Plan: - improving - likely d/t acute illness & poor nutritional status - repleted 12/29 - repeat labs in AM, again (4) Fall Status: Acute Plan: Pt is 86 yo s/p fall/dizziness with loc facial trauma/contusions - domenica probably dehydrations - cough/chills..chest infiltrates concerning for pna - could consider radiation lung changes. - She has CLL and chonic leukocytosis. - s/p radiation for breast ca recently - PT - dvt proohylaxis hold arb until renal function improves. (5) Contusion of face Status: Acute Plan: above (6) Pneumonia Status: Acute Plan: - leukocytosis improved from admission, but pt has underlying CLL - WBC 31.5 (12/26/16), 21.5 (12/27/16), 22.6 (12/28/16) - continue Rocephin and azithromycin (12/27/16 - 01/01/17) - duonebs q6h while awake - repeat CBC in AM - Blood Culture negative at 3 day (7) CLL (chronic lymphocytic leukemia) Status: Chronic Plan: follows with dr simms (8) Breast CA Status: Chronic Plan: s/p lumpectomy and radiation. (9) Vaginal prolapse Status: Acute Plan: - f/u with rendering equipment tender outpt Problem Qualifiers (1) Contusion of face: Qualified Code: S00.83XD - Contusion of face, subsequent encounter (2) Pneumonia: Qualified Code: J18.9 - Pneumonia of both lower lobes due to infectious organism Thom Murillo DO Jan 02, 2017 16:49
[2017-01-02] MEDS: traZODone HCL 50 MG TAB PO SCH (20:04)
[2017-01-02] MEDS: ZOLPIDEM TARTRATE 5 MG TAB PO PRN (22:37)
[2017-01-03] VITALS: BP 139/72; PULSE 92; RESP 20; TEMP 98; O2SAT 96
[2017-01-03 05:53] LABS: BICARBONATE 22.2 MEQ/L (21.0-32.0); MAGNESIUM 1.7 MG/DL (1.5-2.5); POTASSIUM 3.7 MEQ/L (3.5-5.1)
[2017-01-03 08:00] VITALS: BP 147/69; PULSE 98; RESP 17; TEMP 97.1; O2SAT 94
[2017-01-03] MEDS: ANASTROZOLE 1 MG TAB PO SCH (08:54)
[2017-01-03] MEDS: amLODIPine BESYLATE 5 MG TAB PO SCH ×2 (08:54→20:07)
[2017-01-03] MEDS: ASPIRIN 81 MG CHEW TAB CHEW SCH (08:54)
[2017-01-03] MEDS: ATORVASTATIN 80 MG TAB PO SCH (08:54)
[2017-01-03] MEDS: SODIUM CHLOR 0.9% 1000 ML INJ 1,000 ML IV SCH (08:55)
--- NOTE | 2017-01-03 11:09 | HHI.PR ---
Subjective Remarks Pt states that she is overall not feeling as well today as she did yesterday Her appetite has been improving over the last two days She is making urine Some cough with white phlegm production. Objective Vitals Vital Signs Date Time Temp Pulse Resp B/P Pulse Ox O2 Delivery O2 Flow Rate FiO2 01/03/17 08:00 97.1 98 17 147/69 94 01/03/17 00:00 98.0 92 20 139/72 96 01/02/17 20:10 93 Nasal Cannula 3.00 01/02/17 20:00 97.6 98 20 143/70 95 01/02/17 16:00 98.0 94 17 139/68 95 01/02/17 12:00 96.9 94 16 132/65 94 01/02/17 01/02/17 01/03/17 15:00 23:00 07:00 Intake Total 960 ml 995 ml 925 ml Output Total 350 ml 550 ml 600 ml Balance 610 ml 445 ml 325 ml Intake Oral 960 ml 380 ml 240 ml IV Total 615 ml 685 ml Output Urine Total 350 ml 550 ml 600 ml # Bowel Movements 2 0 0 Result Diagram: 01/03/17 0447 Other Results Laboratory Tests Test 01/03/17 04:47 Sodium Level 145 MEQ/L Potassium Level 3.7 MEQ/L Chloride Level 111 MEQ/L Carbon Dioxide Level 22.2 MEQ/L Anion Gap 12 MEQ/L Blood Urea Nitrogen 44 MG/DL Creatinine 5.66 MG/DL Estimat Glomerular Filtration 7 ML/MIN Rate Random Glucose 96 MG/DL Calcium Level 8.3 MG/DL Phosphorus Level 4.2 MG/DL Magnesium Level 1.7 MG/DL Imaging Last Impressions Renal Ultrasound 12/27/16 0000 Signed Impressions: Service Date/Time: Tuesday, December 27, 2016 20:43 - CONCLUSION: 1. There is increased echogenicity of both kidneys. This suggests chronic medical renal disease. 2. No hydronephrosis. 3. Small benign left renal cyst. 4. Mild right perinephric edema. Osmin Amos MD Pelvis X-Ray 12/26/161342 Signed Impressions: Service Date/Time: Monday, December 26, 2016 13:56 - CONCLUSION: No acute disease. Dave Serna MD Head CT [id number]/26/161342 Signed Impressions: Service Date/Time: Monday, December 26, 2016 14:53 - CONCLUSION: No acute intracranial abnormality. Dave Ibanez MD Cervical Spine CT 12/26/16 1343 Signed Impressions: Service Date/Time: Monday, December 26, 2016 14:53 - CONCLUSION: Intact cervical spine. Degenerative changes as above. Dave Ibanez MD Maxillofacial CT 12/26/16 0000 Signed Impressions: Service Date/Time: Monday, December 26, 2016 14:53 - CONCLUSION: 1. No facial fracture. 2. Diffusely heterogeneous marrow. Please see above. Dave Ibanez MD Chest X-Ray 12/26/16 0000 Signed Impressions: Service Date/Time: Monday, December 26, 2016 14:51 - CONCLUSION: Mild, nonspecific consolidation of the left lung. Dave Ibanez MD Chest CT 12/26/16 0000 Signed Impressions: Service Date/Time: Monday, December 26, 2016 14:59 - CONCLUSION: 1. Nothing convincing for acute trauma to the chest. 2. Patchy infiltrates in both mid and lower lungs that are most likely pre-existing, infectious or inflammatory. 3. Small pericardial effusion also probably nonacute. 4. Upper limits of normal size mediastinal lymph nodes without anything clearly pathologic. 5. Left breast surgery. 6. Coronary artery calcification. Dave Ibanez MD Objective Remarks General: NAD, AAOx3 Chest: CTA Cardiac: Regular Abd: +BS, soft mildly distended, nontender Ext: no edema A/P Problem List: (1) Fall Status: Acute Plan: - Pt is 86 yo admitted after a fall secondary to dizziness with LOC and sustained facial trauma/contusions - At admission pt noted to have DOMENICA, cough/chills. - CXR with chest infiltrates concerning for PNA, could consider radiation lung changes as pt s/p radiation for breast ca recently. - She has CLL and chronic leukocytosis. - PT recommending rehab after the conclusion of this hospitalization - Pt is planned to go to [facility] - DVT prophylaxis (2) DOMENICA (acute kidney injury) Status: Acute Plan: - comgmt with Nephrology - US kidneys, bladder, ureters (12/27/16) --> increased echogenicity of both kidneys c/w medical renal disease - NO improvement in pt's Creatinine with just IVF - Pt had VasCath placed (12/30/16) - Underwent HD 12/30 and 12/31 - Next HD today - continue IVFs - repeat BMP, Mag, phos in AM (3) Hyperkalemia Status: Acute Plan: - see above (4) Hypocalcemia Status: Acute Plan: - improving - likely d/t acute illness & poor nutritional status - repleted 12/29 (5) Contusion of face Status: Acute Plan: - Secondary to fall, see above (6) Pneumonia Status: Acute Plan: - leukocytosis improved from admission, but pt has underlying CLL - WBC 31.5 (12/26/16), 21.5 (12/27/16), 22.6 (12/28/16) - Pt was treated with Rocephin and azithromycin (12/27/16 - 01/01/17) - Duonebs q6h while awake - repeat CBC in AM - Blood Culture (12/26) with no growth to date (7) CLL (chronic lymphocytic leukemia) Status: Chronic Plan: - Follows with Dr. Wilson (8) Breast CA Status: Chronic Plan: - s/p lumpectomy and radiation. (9) Vaginal prolapse Status: Acute Plan: - f/u with inside sales trainer outpt Assessment and Plan Patient examined. Assessment and plan formulated with Yasmeen Thrasher PA-C. I agree with the above. pt with domenica/ckd requiring HD. await decision per renal regarding permcath if needed. wean oxygen. PT. dvt prophylaxis. Problem Qualifiers (1) Contusion of face: Qualified Code: S00.83XD - Contusion of face, subsequent encounter (2) Pneumonia: Qualified Code: J18.9 - Pneumonia of both lower lobes due to infectious organism Yasmeen Thrasher Jan 03, 2017 11:09 Dimas Acosta MD Jan 03, 2017 14:09
[2017-01-03 11:19] VITALS: O2SAT 96
[2017-01-03 12:00] VITALS: BP 152/70; PULSE 101; RESP 12; TEMP 96.6; O2SAT 94
[2017-01-03] MEDS: GENTAMICIN SULFATE (DIALYSIS USE ONLY) 20 MG/2 ML VIAL IV PRN (16:55)
--- NOTE | 2017-01-03 17:02 | HHI.NPPN ---
Subjective General Problems: Anemia Renal Failure: Chronic, Acute, Stage III History of Present Illness 86-year-old female with a past medical history of chronic lymphocytic leukemia, history of breast cancer, hypertension, hyperlipidemia, stage III chronic kidney disease who came to the hospital with complaint of a history of fall and cough for four days before admission. I was called to see the patient because of elevated BUN and creatinine. The patient has a history of chronic kidney disease and she has been following with me in the office. Her last creatinine was done. The baseline creatinine is around 1.0 to 1.1 and the GFR around 47 to 46 cm/minute. Additional Remarks Patient is alert, seen on HD, feeling better. Review of Systems General Constitutional: Fatigue Respiratory Lungs: SOB, Cough, Sputum, Wheeze Cardiovascular Cardiac: ZELAYA Gastrointestinal Gastrointestinal: Nausea & Vomiting Objective Data Data 01/02/17 01/03/17 19:00 07:00 Intake Total 960 ml 1920 ml Output Total 350 ml 1150 ml Balance 610 ml 770 ml Intake Oral 960 ml 620 ml IV Total 1300 ml Output Urine Total 350 ml 1150 ml # Bowel Movements 2 0 Vital Signs Date Time Temp Pulse Resp B/P Pulse Ox O2 Delivery O2 Flow Rate FiO2 01/03/17 12:00 96.6 101 12 152/70 94 01/03/17 11:19 96 Nasal Cannula 3.00 01/03/17 08:00 97.1 98 17 147/69 94 01/03/17 00:00 98.0 92 20 139/72 96 01/02/17 20:10 93 Nasal Cannula 3.00 01/02/17 20:00 97.6 98 20 143/70 95 -: 01/03/17 0447 Physical Exam General Appearance: No Acute Distress, Comfortable Eyes Eye Exam: Pupils Equal Throat Throat Exam: Oral Mucosa [place] & Moist Neck Neck Exam: Trachea Midline Pulmonary Resp Exam: No Distress, Rhonchi, Decreased Bases, Diminished Breath Sounds Cardiology CV Exam: Regular, Normal Sinus Rhythm Gastrointestinal/Abdomen GI Exam: Soft, Non-Tender, Bowel Sounds Present Extremeties Extremities Exam: No Edema Neurologic Neuro Exam: Alert, Awake Psychiatric Psych Exam: Appropriate Responses Assessment/Plan Assessment Summary: DOMENICA/Acute Renal Failure, Hypertension, CKD Stage III Problem List: (1) CLL (chronic lymphocytic leukemia) (2) Contusion of face (3) Fall (4) Breast CA (5) Pneumonia (6) DOMENICA (acute kidney injury) Plan Patient has been non oliguric. BP is stable. WBC are chronically elevated. Hco3 decreasing, K is better. Possibly has ATN or A. Interstitial Nephritis. Continue IVF and antibiotics. Started on HD and the last was done Tuesday. Has been non oliguric, but urine out put decreased. Creatinine is still elevated. HD now, and follow the urine out put and BMP. Problem Qualifiers (1) Contusion of face: Qualified Code: S00.83XD - Contusion of face, subsequent encounter (2) Pneumonia: Qualified Code: J18.9 - Pneumonia of both lower lobes due to infectious organism Marysol Parry MD Jan 03, 2017 17:02
[2017-01-03 20:00] VITALS: BP 140/82; PULSE 102; RESP 18; TEMP 96.8; O2SAT 95
[2017-01-03] MEDS: traZODone HCL 50 MG TAB PO SCH (20:08)
[2017-01-03 21:26] VITALS: O2SAT 96
[2017-01-04] VITALS (7 sets, daily range): BP systolic 128–151; BP diastolic 66–79; PULSE 92–108; RESP 17–20; TEMP 97.4–98.4; O2SAT 93–97
[2017-01-04] MEDS: SODIUM CHLOR 0.9% 1000 ML INJ 1,000 ML IV SCH ×3 (03:06→23:55)
[2017-01-04] MEDS: ACETAMINOPHEN 325 MG TAB PO PRN ×2 (03:06→15:31)
[2017-01-04] MEDS: amLODIPine BESYLATE 5 MG TAB PO SCH ×2 (08:32→22:34)
[2017-01-04] MEDS: ANASTROZOLE 1 MG TAB PO SCH (08:32)
[2017-01-04] MEDS: ASPIRIN 81 MG CHEW TAB CHEW SCH (08:32)
[2017-01-04] MEDS: ATORVASTATIN 80 MG TAB PO SCH (08:32)
--- NOTE | 2017-01-04 11:32 | HHI.PR ---
Subjective Remarks in chair. breathing ok. Objective Vitals heart reg lung course bs abd s/nt ext no edema vascath. Vital Signs Date Time Temp Pulse Resp B/P Pulse Ox O2 Delivery O2 Flow Rate FiO2 01/04/17 09:27 95 Nasal Cannula 3.00 01/04/17 08:00 98.4 108 19 151/67 93 01/04/17 04:06 12 01/04/17 00:00 97.4 92 20 128/79 96 01/03/17 21:26 96 Nasal Cannula 3.00 01/03/17 20:00 96.8 102 18 140/82 95 01/03/17 12:00 96.6 101 12 152/70 94 01/03/17 01/03/17 01/04/17 15:00 23:00 07:00 Intake Total 600 ml 460 ml 480 ml Output Total 450 ml 3550 ml 550 ml Balance 150 ml -3090 ml -70 ml Intake Oral 460 ml 480 ml IV Total 600 ml Output Urine Total 450 ml 550 ml 550 ml Hemodialysis 3000 ml # Bowel Movements 3 0 0 Result Diagram: 01/03/17 0447 Imaging Last Impressions Renal Ultrasound 12/27/16 0000 Signed Impressions: Service Date/Time: Tuesday, December 27, 2016 20:43 - CONCLUSION: 1. There is increased echogenicity of both kidneys. This suggests chronic medical renal disease. 2. No hydronephrosis. 3. Small benign left renal cyst. 4. Mild right perinephric edema. Osmin Amos MD Pelvis X-Ray 12/26/161342 Signed Impressions: Service Date/Time: Monday, December 26, 2016 13:56 - CONCLUSION: No acute disease. Dave Serna MD Head CT 12/26/16 1343 Signed Impressions: Service Date/Time: Monday, December 26, 2016 14:53 - CONCLUSION: No acute intracranial abnormality. Dave Ibanez MD Cervical Spine CT 12/26/16 1343 Signed Impressions: Service Date/Time: Monday, December 26, 2016 14:53 - CONCLUSION: Intact cervical spine. Degenerative changes as above. Dave Ibanez MD Maxillofacial CT 12/26/16 0000 Signed Impressions: Service Date/Time: Monday, December 26, 2016 14:53 - CONCLUSION: 1. No facial fracture. 2. Diffusely heterogeneous marrow. Please see above. Dave Ibanez MD Chest X-Ray 12/26/16 0000 Signed Impressions: Service Date/Time: Monday, December 26, 2016 14:51 - CONCLUSION: Mild, nonspecific consolidation of the left lung. Dave Ibanez MD Chest CT 12/26/16 0000 Signed Impressions: Service Date/Time: Monday, December 26, 2016 14:59 - CONCLUSION: 1. Nothing convincing for acute trauma to the chest. 2. Patchy infiltrates in both mid and lower lungs that are most likely pre-existing, infectious or inflammatory. 3. Small pericardial effusion also probably nonacute. 4. Upper limits of normal size mediastinal lymph nodes without anything clearly pathologic. 5. Left breast surgery. 6. Coronary artery calcification. Dave Ibanez MD A/P Problem List: (1) Fall Status: Acute Plan: - Pt is 86 yo admitted after a fall secondary to dizziness with LOC and sustained facial trauma/contusions - At admission pt noted to have DOMENICA, cough/chills. - CXR with chest infiltrates concerning for PNA, could consider radiation lung changes as pt s/p radiation for breast ca recently. - She has CLL and chronic leukocytosis. - PT recommending rehab after the conclusion of this hospitalization - At this point projected to need outpt hemodialyis. will discuss with renal..will need vascath to permcath. - Pt upset with life changing illness. her daughter will care for her Down Syndrome daughter....But pt says she will not be able to afford her lot rent w/out daughters check. - Pt is planned to go to [facility] - DVT prophylaxis (2) DOMENICA (acute kidney injury) Status: Acute Plan: - comgmt with Nephrology - US kidneys, bladder, ureters (12/27/16) --> increased echogenicity of both kidneys c/w medical renal disease - NO improvement in pt's Creatinine with just IVF - Pt had VasCath placed (12/30/16) - undergoing HD m/w/f -will discuss with Renal today..?permath. (3) Hyperkalemia Status: Acute Plan: - see above (4) Hypocalcemia Status: Acute Plan: - improving - likely d/t acute illness & poor nutritional status - repleted 12/29 (5) Contusion of face Status: Acute Plan: - Secondary to fall, see above (6) Pneumonia Status: Acute Plan: - leukocytosis improved from admission, but pt has underlying CLL - Pt was treated with Rocephin and azithromycin (12/27/16 - 01/01/17) - Duonebs q6h while awake - Blood Culture (12/26) with no growth to date (7) CLL (chronic lymphocytic leukemia) Status: Chronic Plan: - Follows with Dr. Wilson (8) Breast CA Status: Chronic Plan: - s/p lumpectomy and radiation. (9) Vaginal prolapse Status: Acute Plan: - f/u with pet care assistant outpt Problem Qualifiers (1) Contusion of face: Qualified Code: S00.83XD - Contusion of face, subsequent encounter (2) Pneumonia: Qualified Code: J18.9 - Pneumonia of both lower lobes due to infectious organism Dimas Acosta MD Jan 04, 2017 11:32
--- NOTE | 2017-01-04 18:43 | HHI.NPPN ---
Subjective General Problems: Anemia Renal Failure: Chronic, Acute, Stage III History of Present Illness 86-year-old female with a past medical history of chronic lymphocytic leukemia, history of breast cancer, hypertension, hyperlipidemia, stage III chronic kidney disease who came to the hospital with complaint of a history of fall and cough for four days before admission. I was called to see the patient because of elevated BUN and creatinine. The patient has a history of chronic kidney disease and she has been following with me in the office. Her last creatinine was done. The baseline creatinine is around 1.0 to 1.1 and the GFR around 47 to 46 cm/minute. Additional Remarks Patient is alert, no SOB, feeling better, started eating. Review of Systems General Constitutional: Fatigue Respiratory Lungs: SOB, Cough, Sputum, Wheeze Cardiovascular Cardiac: ZELAYA Gastrointestinal Gastrointestinal: Nausea & Vomiting Objective Data Data 01/03/17 01/04/17 19:00 07:00 Intake Total 600 ml 940 ml Output Total 3450 ml 1100 ml Balance -2850 ml -160 ml Intake Oral 940 ml IV Total 600 ml Output Urine Total 450 ml 1100 ml Hemodialysis 3000 ml # Bowel Movements 3 0 Vital Signs Date Time Temp Pulse Resp B/P Pulse Ox O2 Delivery O2 Flow Rate FiO2 01/04/17 16:00 97.8 94 17 140/66 95 01/04/17 12:00 97.9 92 18 135/67 94 01/04/17 09:27 95 Nasal Cannula 3.00 01/04/17 08:00 98.4 108 19 151/67 93 01/04/17 04:06 12 01/04/17 00:00 97.4 92 20 128/79 96 01/03/17 21:26 96 Nasal Cannula 3.00 01/03/17 20:00 96.8 102 18 140/82 95 -: 01/03/17 0447 Physical Exam General Appearance: No Acute Distress, Comfortable Eyes Eye Exam: Pupils Equal Throat Throat Exam: Oral Mucosa [place] & Moist Neck Neck Exam: Trachea Midline Pulmonary Resp Exam: No Distress, Rhonchi, Decreased Bases, Diminished Breath Sounds Cardiology CV Exam: Regular, Normal Sinus Rhythm Gastrointestinal/Abdomen GI Exam: Soft, Non-Tender, Bowel Sounds Present Extremeties Extremities Exam: No Edema Neurologic Neuro Exam: Alert, Awake Psychiatric Psych Exam: Appropriate Responses Assessment/Plan Assessment Summary: DOMENICA/Acute Renal Failure, Hypertension, CKD Stage III Problem List: (1) CLL (chronic lymphocytic leukemia) (2) Contusion of face (3) Fall (4) Breast CA (5) Pneumonia (6) DOMENICA (acute kidney injury) Plan Patient has been non oliguric. BP is stable. WBC are chronically elevated. Hco3 decreasing, K is better. Possibly has ATN or A. Interstitial Nephritis. Continue IVF and antibiotics. Started on HD. Has been non oliguric, but urine out put decreased. HD done yesterday. Check BMP in AM, possible HD tomorrow. Problem Qualifiers (1) Contusion of face: Qualified Code: S00.83XD - Contusion of face, subsequent encounter (2) Pneumonia: Qualified Code: J18.9 - Pneumonia of both lower lobes due to infectious organism Marysol Parry MD Jan 04, 2017 18:43
[2017-01-04] MEDS: traZODone HCL 50 MG TAB PO SCH (22:35)
[2017-01-04] MEDS: ZOLPIDEM TARTRATE 5 MG TAB PO PRN (22:35)
[2017-01-05] VITALS: BP 135/61; PULSE 93; RESP 18; TEMP 98.7; O2SAT 94
[2017-01-05 05:38] LABS: BICARBONATE 27.1 MEQ/L (21.0-32.0); POTASSIUM 3.2 MEQ/L (3.5-5.1)
[2017-01-05] MEDS: ACETAMINOPHEN 325 MG TAB PO PRN (05:44)
[2017-01-05 08:00] VITALS: BP 112/65; PULSE 98; RESP 17; TEMP 98.2; O2SAT 93
[2017-01-05] MEDS: amLODIPine BESYLATE 5 MG TAB PO SCH ×2 (08:42→21:22)
[2017-01-05] MEDS: ATORVASTATIN 80 MG TAB PO SCH (08:42)
[2017-01-05] MEDS: ONDANSETRON HCL 4 MG/2 ML VIAL IV PUSH PRN (08:42)
[2017-01-05] MEDS: ASPIRIN 81 MG CHEW TAB CHEW SCH (08:42)
[2017-01-05] MEDS: ANASTROZOLE 1 MG TAB PO SCH (08:43)
--- NOTE | 2017-01-05 09:38 | HHI.PR ---
Subjective Remarks Pt reports some nausea this morning Cough is slowly improving Denies any abd pain, vomiting, constipation. She is very anxious about whether or not she will have to continue on permanent HD Objective Vitals Vital Signs Date Time Temp Pulse Resp B/P Pulse Ox O2 Delivery O2 Flow Rate FiO2 01/05/17 08:00 98.2 98 17 112/65 93 01/05/17 07:00 17 01/05/17 00:00 98.7 93 18 135/61 94 01/04/17 22:27 97 Nasal Cannula 2.00 01/04/17 20:00 98.2 95 18 139/74 96 01/04/17 16:00 97.8 94 17 140/66 95 01/04/17 12:00 97.9 92 18 135/67 94 01/04/17 01/04/17 01/05/17 15:00 23:00 07:00 Intake Total 2714 ml 240 ml 0 ml Output Total 500 ml 300 ml 400 ml Balance 2214 ml -60 ml -400 ml Intake Oral 960 ml 240 ml 0 ml IV Total 1754 ml Output Urine Total 500 ml 300 ml 400 ml # Bowel Movements 2 1 1 Result Diagram: 01/05/17 0427 Other Results Laboratory Tests Test 01/05/17 04:27 Sodium Level 145 MEQ/L Potassium Level 3.2 MEQ/L Chloride Level 110 MEQ/L Carbon Dioxide Level 27.1 MEQ/L Anion Gap 8 MEQ/L Blood Urea Nitrogen 37 MG/DL Creatinine 4.78 MG/DL Estimat Glomerular Filtration 9 ML/MIN Rate Random Glucose 100 MG/DL Calcium Level 7.5 MG/DL Imaging Last Impressions Catheter Placement X-Ray 12/30/16 0000 Signed Impressions: Service Date/Time: December 12:27 - CONCLUSION: Uncomplicated line placement as above. Steve Ponce Jr., MD Renal Ultrasound 12/27/16 0000 Signed Impressions: Service Date/Time: Tuesday, December 27, 2016 20:43 - CONCLUSION: 1. There is increased echogenicity of both kidneys. This suggests chronic medical renal disease. 2. No hydronephrosis. 3. Small benign left renal cyst. 4. Mild right perinephric edema. Osmin Amos MD Pelvis X-Ray 12/26/16 1343 Signed Impressions: Service Date/Time: Monday, December 26, 2016 13:56 - CONCLUSION: No acute disease. Dave Serna MD Head CT 12/26/16 1343 Signed Impressions: Service Date/Time: Monday, December 26, 2016 14:53 - CONCLUSION: No acute intracranial abnormality. Dave Ibanez MD Cervical Spine CT 12/26/16 1343 Signed Impressions: Service Date/Time: Monday, December 26, 2016 14:53 - CONCLUSION: Intact cervical spine. Degenerative changes as above. Dave Ibanez MD Maxillofacial CT 12/26/16 0000 Signed Impressions: Service Date/Time: Monday, December 26, 2016 14:53 - CONCLUSION: 1. No facial fracture. 2. Diffusely heterogeneous marrow. Please see above. Dave Ibanez MD Chest X-Ray 12/26/16 0000 Signed Impressions: Service Date/Time: Monday, December 26, 2016 14:51 - CONCLUSION: Mild, nonspecific consolidation of the left lung. Dave Ibanez MD Chest CT 12/26/16 0000 Signed Impressions: Service Date/Time: Monday, December 26, 2016 14:59 - CONCLUSION: 1. Nothing convincing for acute trauma to the chest. 2. Patchy infiltrates in both mid and lower lungs that are most likely pre-existing, infectious or inflammatory. 3. Small pericardial effusion also probably nonacute. 4. Upper limits of normal size mediastinal lymph nodes without anything clearly pathologic. 5. Left breast surgery. 6. Coronary artery calcification. Dave Ibanez MD Objective Remarks General: NAD, AAOx3 Chest: Decreased breath sounds at the bases Cardiac: Regular Abd: +BS, soft ND/NT Ext: No edema A/P Problem List: (1) Fall Status: Acute Plan: - Pt is 86 yo admitted after a fall secondary to dizziness with LOC and sustained facial trauma/contusions - At admission pt noted to have VINI, cough/chills. - CXR with chest infiltrates concerning for PNA, could consider radiation lung changes as pt s/p radiation for breast ca recently. - She has CLL and chronic leukocytosis. - PT recommending rehab after the conclusion of this hospitalization - At this point projected to need outpt hemodialysis, if this is the case she will need vascath to permcath. - Pt upset with life changing illness and is concerned about the financial impact. Appears anxious. - Pt is planned to go to [facility] - DVT prophylaxis (2) VINI (acute kidney injury) Status: Acute Plan: - comgmt with Nephrology - US kidneys, bladder, ureters (12/27/16) --> increased echogenicity of both kidneys c/w medical renal disease - NO improvement in pt's Creatinine with just IVF - Pt had VasCath placed (12/30/16) - undergoing HD m/w/f - Cr 4.78 today (3) Hyperkalemia Status: Acute Plan: - see above (4) Hypocalcemia Status: Acute Plan: - improving - likely d/t acute illness & poor nutritional status - repleted 12/29 (5) Contusion of face Status: Acute Plan: - Secondary to fall, see above (6) Pneumonia Status: Acute Plan: - leukocytosis improved from admission, but pt has underlying CLL - Pt was treated with Rocephin and azithromycin (12/27/16 - 01/01/17) - Duonebs q6h while awake - Blood Culture (12/26) with no growth to date (7) CLL (chronic lymphocytic leukemia) Status: Chronic Plan: - Follows with Dr. Wilson (8) Breast CA Status: Chronic Plan: - s/p lumpectomy and radiation. (9) Vaginal prolapse Status: Acute Plan: - f/u with organizational development consultant outpt Assessment and Plan Patient examined. Assessment and plan formulated with Yasmeen Thrasher PA-C. I agree with the above. vini requiring HD. awaiting nephrology decision for permcath vs stop HD. will need snf. Problem Qualifiers (1) Contusion of face: Qualified Code: S00.83XD - Contusion of face, subsequent encounter (2) Pneumonia: Qualified Code: J18.9 - Pneumonia of both lower lobes due to infectious organism Yasmeen Thrasher Jan 05, 2017 09:38 Dimas Acosta MD Jan 05, 2017 13:02
[2017-01-05] MEDS: SODIUM CHLOR 0.9% 1000 ML INJ 1,000 ML IV PRN (10:37)
[2017-01-05] MEDS: HEPARIN SODIUM - IV 10,000 UNITS/10 ML VIAL PRN (10:38)
[2017-01-05] MEDS: GENTAMICIN SULFATE (DIALYSIS USE ONLY) 20 MG/2 ML VIAL IV PRN (10:38)
--- NOTE | 2017-01-05 11:57 | HHI.NPPN ---
Subjective General Problems: Anemia Renal Failure: Chronic, Acute, Stage III History of Present Illness 86-year-old female with a past medical history of chronic lymphocytic leukemia, history of breast cancer, hypertension, hyperlipidemia, stage III chronic kidney disease who came to the hospital with complaint of a history of fall and cough for four days before admission. I was called to see the patient because of elevated BUN and creatinine. The patient has a history of chronic kidney disease and she has been following with me in the office. Her last creatinine was done. The baseline creatinine is around 1.0 to 1.1 and the GFR around 47 to 46 cm/minute. Additional Remarks Patient is alert, seen on HD, no complain, feeling weak. Review of Systems General Constitutional: Fatigue Respiratory Lungs: SOB, Cough, Sputum, Wheeze Cardiovascular Cardiac: ZELAYA Gastrointestinal Gastrointestinal: Nausea & Vomiting Objective Data Data 01/04/17 01/05/17 19:00 07:00 Intake Total 2714 ml 240 ml Output Total 500 ml 700 ml Balance 2214 ml -460 ml Intake Oral 960 ml 240 ml IV Total 1754 ml Output Urine Total 500 ml 700 ml # Bowel Movements 2 2 Vital Signs Date Time Temp Pulse Resp B/P Pulse Ox O2 Delivery O2 Flow Rate FiO2 01/05/17 08:00 98.2 98 17 112/65 93 01/05/17 07:00 17 01/05/17 00:00 98.7 93 18 135/61 94 01/04/17 22:27 97 Nasal Cannula 2.00 01/04/17 20:00 98.2 95 18 139/74 96 01/04/17 16:00 97.8 94 17 140/66 95 01/04/17 12:00 97.9 92 18 135/67 94 -: 01/05/17 0427 Physical Exam General Appearance: No Acute Distress, Comfortable Eyes Eye Exam: Pupils Equal Throat Throat Exam: Oral Mucosa [place] & Moist Neck Neck Exam: Trachea Midline Pulmonary Resp Exam: No Distress, Rhonchi, Decreased Bases, Diminished Breath Sounds Cardiology CV Exam: Regular, Normal Sinus Rhythm Gastrointestinal/Abdomen GI Exam: Soft, Non-Tender, Bowel Sounds Present Extremeties Extremities Exam: No Edema Neurologic Neuro Exam: Alert, Awake Psychiatric Psych Exam: Appropriate Responses Assessment/Plan Assessment Summary: DOMENICA/Acute Renal Failure, Hypertension, CKD Stage III Problem List: (1) CLL (chronic lymphocytic leukemia) (2) Contusion of face (3) Fall (4) Breast CA (5) Pneumonia (6) DOMENICA (acute kidney injury) Plan Patient has been non oliguric. BP is stable. WBC are chronically elevated. Possibly has ATN or A. Interstitial Nephritis. Continue IVF and antibiotics. Started on HD. Has been non oliguric. HD now, Creatinine is slightly better. Follow urine out put and BMP. HD as needed. Problem Qualifiers (1) Contusion of face: Qualified Code: S00.83XD - Contusion of face, subsequent encounter (2) Pneumonia: Qualified Code: J18.9 - Pneumonia of both lower lobes due to infectious organism Marysol Parry MD Jan 05, 2017 11:57
[2017-01-05] MEDS ORDERED: POTASSIUM CHLORIDE 20 MEQ CONTROLLED RELEASE TAB PO ONE (13:30)
[2017-01-05 16:00] VITALS: BP 130/64; PULSE 95; RESP 20; TEMP 97.3; O2SAT 95
[2017-01-05 17:54] VITALS: O2SAT 95
[2017-01-05 20:00] VITALS: BP 126/78; PULSE 74; RESP 20; TEMP 98.4; O2SAT 97
[2017-01-05] MEDS: SODIUM CHLOR 0.9% 1000 ML INJ 1,000 ML IV SCH (20:20)
[2017-01-05] MEDS: ONDANSETRON HCL 4 MG/2 ML VIAL IV PRN (21:19)
[2017-01-05] MEDS: traZODone HCL 50 MG TAB PO SCH (21:22)
[2017-01-05] MEDS: ZOLPIDEM TARTRATE 5 MG TAB PO PRN (21:24)
[2017-01-06] VITALS (7 sets, daily range): BP systolic 128–160; BP diastolic 60–77; PULSE 76–98; RESP 17–20; TEMP 96.6–98.3; O2SAT 91–97
[2017-01-06] MEDS: RESP: ALBUTEROL 2.5 MG/IPRATROPIUM 0.5 MG NEB (SCH) NEB ×3 (05:12→20:57)
[2017-01-06 06:13] LABS: BICARBONATE 28.5 MEQ/L (21.0-32.0); MAGNESIUM 1.4 MG/DL (1.5-2.5); POTASSIUM 3.5 MEQ/L (3.5-5.1)
[2017-01-06] MEDS: ANASTROZOLE 1 MG TAB PO SCH (08:17)
[2017-01-06] MEDS: amLODIPine BESYLATE 5 MG TAB PO SCH ×2 (08:17→21:52)
[2017-01-06] MEDS: ASPIRIN 81 MG CHEW TAB CHEW SCH (08:18)
[2017-01-06] MEDS: ATORVASTATIN 80 MG TAB PO SCH (08:18)
[2017-01-06] MEDS: SODIUM CHLOR 0.9% 1000 ML INJ 1,000 ML IV SCH ×2 (08:18→23:00)
--- NOTE | 2017-01-06 10:03 | HHI.PR ---
Subjective Remarks Pt reports that she feels very tired today and has some generalized achiness. Nursing staff reports that she did not want to get out of bed for breakfast this morning. Pt is still requiring supplemental O2 She seems somewhat depressed but appeared more hopeful when I told her that her renal function improved today. Objective Vitals Vital Signs Date Time Temp Pulse Resp B/P Pulse Ox O2 Delivery O2 Flow Rate FiO2 01/06/17 00:00 97.6 76 20 130/76 97 01/05/17 20:00 98.4 74 20 126/78 97 01/05/17 17:54 95 Nasal Cannula 2.00 01/05/17 16:00 97.3 95 20 130/64 95 01/05/17 01/05/17 01/06/17 15:00 23:00 07:00 Intake Total 480 ml 220 ml Output Total 2000 ml 0 ml 400 ml Balance -2000 ml 480 ml -180 ml Intake Oral 480 ml 220 ml Output Urine Total 0 ml 400 ml Hemodialysis 2000 ml # Bowel Movements 1 1 Result Diagram: 01/06/17 0442 Other Results Laboratory Tests Test 01/05/17 01/06/17 04:27 04:42 Sodium Level 145 MEQ/L 146 MEQ/L Potassium Level 3.2 MEQ/L 3.5 MEQ/L Chloride Level 110 MEQ/L 109 MEQ/L Carbon Dioxide Level 27.1 MEQ/L 28.5 MEQ/L Anion Gap 8 MEQ/L 9 MEQ/L Blood Urea Nitrogen 37 MG/DL 19 MG/DL Creatinine 4.78 MG/DL 3.35 MG/DL Estimat Glomerular Filtration 9 ML/MIN 13 ML/MIN Rate Random Glucose 100 MG/DL 94 MG/DL Calcium Level 7.5 MG/DL 7.7 MG/DL Magnesium Level 1.4 MG/DL Imaging Last Impressions Catheter Placement X-Ray 12/30/16 0000 Signed Impressions: Service Date/Time: December 12:27 - CONCLUSION: Uncomplicated line placement as above. Steve Ponce Jr., MD Renal Ultrasound 12/27/16 0000 Signed Impressions: Service Date/Time: Tuesday, December 27, 2016 20:43 - CONCLUSION: 1. There is increased echogenicity of both kidneys. This suggests chronic medical renal disease. 2. No hydronephrosis. 3. Small benign left renal cyst. 4. Mild right perinephric edema. Osmin Amos MD Pelvis X-Ray 12/26/16 1343 Signed Impressions: Service Date/Time: Monday, December 26, 2016 13:56 - CONCLUSION: No acute disease. Dave Serna MD Head CT 12/26/16 1343 Signed Impressions: Service Date/Time: Monday, December 26, 2016 14:53 - CONCLUSION: No acute intracranial abnormality. Dave Ibanez MD Cervical Spine CT 12/26/16 1343 Signed Impressions: Service Date/Time: Monday, December 26, 2016 14:53 - CONCLUSION: Intact cervical spine. Degenerative changes as above. Dave Ibanez MD Maxillofacial CT 12/26/16 0000 Signed Impressions: Service Date/Time: Monday, December 26, 2016 14:53 - CONCLUSION: 1. No facial fracture. 2. Diffusely heterogeneous marrow. Please see above. Dave Ibanez MD Chest X-Ray 12/26/16 0000 Signed Impressions: Service Date/Time: Monday, December 26, 2016 14:51 - CONCLUSION: Mild, nonspecific consolidation of the left lung. Dave Ibanez MD Chest CT 12/26/16 0000 Signed Impressions: Service Date/Time: Monday, December 26, 2016 14:59 - CONCLUSION: 1. Nothing convincing for acute trauma to the chest. 2. Patchy infiltrates in both mid and lower lungs that are most likely pre-existing, infectious or inflammatory. 3. Small pericardial effusion also probably nonacute. 4. Upper limits of normal size mediastinal lymph nodes without anything clearly pathologic. 5. Left breast surgery. 6. Coronary artery calcification. Dave Ibanez MD Objective Remarks General: NAD, AAOx3 Chest: Decreased breath sounds at the bases Cardiac: Regular Abd: +BS, soft ND/NT Ext: No edema A/P Problem List: (1) Fall Status: Acute Plan: - Pt is 86 yo admitted after a fall secondary to dizziness with LOC and sustained facial trauma/contusions - At admission pt noted to have VINI, cough/chills. - CXR with chest infiltrates concerning for PNA, could consider radiation lung changes as pt s/p radiation for breast ca recently. - She has CLL and chronic leukocytosis. - PT recommending rehab after the conclusion of this hospitalization - Pts renal function is starting to improve. We will see what nephrology has planned as far as further dialysis vs. watchful waiting to see how her renal function improves. - Pt is planned to go to [facility] at the conclusion of this hospitalization. - DVT prophylaxis (2) VINI (acute kidney injury) Status: Acute Plan: - comgmt with Nephrology - US kidneys, bladder, ureters (12/27/16) --> increased echogenicity of both kidneys c/w medical renal disease - NO improvement in pt's Creatinine with just IVF - Pt had VasCath placed (12/30/16) - undergoing HD m/w/f - Cr 3.35 today - Repeat labs in AM (3) Hyperkalemia Status: Acute Plan: - see above (4) Hypocalcemia Status: Acute Plan: - improving - likely d/t acute illness & poor nutritional status - repleted 12/29 (5) Contusion of face Status: Acute Plan: - Secondary to fall, see above (6) Pneumonia Status: Acute Plan: - leukocytosis improved from admission, but pt has underlying CLL - Pt was treated with Rocephin and azithromycin (12/27/16 - 01/01/17) - Pt still requiring supplemental O2. She has not been out of bed much. - Incentive spirometer - Resume Duonebs q6h while awake - Encourage ambulation and OOB - Blood Culture (12/26) with no growth to date (7) CLL (chronic lymphocytic leukemia) Status: Chronic Plan: - Follows with Dr. Wilson (8) Breast CA Status: Chronic Plan: - s/p lumpectomy and radiation. (9) Vaginal prolapse Status: Acute Plan: - f/u with primary care physician outpt Assessment and Plan Patient examined. Assessment and plan formulated with Yasmeen Thrasher PA-C. I agree with the above. vini. slowly improving with HD support. hopefully able to wean off HD prior to d/c to snf. Problem Qualifiers (1) Contusion of face: Qualified Code: S00.83XD - Contusion of face, subsequent encounter (2) Pneumonia: Qualified Code: J18.9 - Pneumonia of both lower lobes due to infectious organism Yasmeen Thrasher Jan 06, 2017 10:03 Dimas Acosta MD Jan 06, 2017 19:25
[2017-01-06] MEDS: MAGNESIUM SULFATE 1 GM PREMIX 100 ML IV SCH ×2 (10:06→11:16)
[2017-01-06] MEDS: ACETAMINOPHEN 325 MG TAB PO PRN ×2 (11:19→21:52)
--- NOTE | 2017-01-06 20:27 | HHI.NPPN ---
Subjective General Problems: Anemia Renal Failure: Chronic, Acute, Stage III History of Present Illness 86-year-old female with a past medical history of chronic lymphocytic leukemia, history of breast cancer, hypertension, hyperlipidemia, stage III chronic kidney disease who came to the hospital with complaint of a history of fall and cough for four days before admission. I was called to see the patient because of elevated BUN and creatinine. The patient has a history of chronic kidney disease and she has been following with me in the office. Her last creatinine was done. The baseline creatinine is around 1.0 to 1.1 and the GFR around 47 to 46 cm/minute. Additional Remarks Patient is alert, eating better, no SOB. Review of Systems General Constitutional: Fatigue Respiratory Lungs: SOB, Cough, Sputum, Wheeze Cardiovascular Cardiac: ZELAYA Gastrointestinal Gastrointestinal: Nausea & Vomiting Objective Data Data 01/05/17 01/06/17 19:00 07:00 Intake Total 700 ml Output Total 2000 ml 400 ml Balance -2000 ml 300 ml Intake Oral 700 ml Output Urine Total 400 ml Hemodialysis 2000 ml # Bowel Movements 2 Vital Signs Date Time Temp Pulse Resp B/P Pulse Ox O2 Delivery O2 Flow Rate FiO2 01/06/17 20:16 96.8 89 17 155/77 91 01/06/17 16:00 96.6 95 18 160/68 95 01/06/17 13:36 93 Nasal Cannula 1.00 01/06/17 12:00 97.2 88 18 128/60 93 01/06/17 08:00 98.3 98 20 143/70 95 01/06/17 00:00 97.6 76 20 130/76 97 -: 01/06/17 0442 Physical Exam General Appearance: No Acute Distress, Comfortable Eyes Eye Exam: Pupils Equal Throat Throat Exam: Oral Mucosa [place] & Moist Neck Neck Exam: Trachea Midline Pulmonary Resp Exam: No Distress, Rhonchi, Decreased Bases, Diminished Breath Sounds Cardiology CV Exam: Regular, Normal Sinus Rhythm Gastrointestinal/Abdomen GI Exam: Soft, Non-Tender, Bowel Sounds Present Extremeties Extremities Exam: No Edema Neurologic Neuro Exam: Alert, Awake Psychiatric Psych Exam: Appropriate Responses Assessment/Plan Assessment Summary: DOMENICA/Acute Renal Failure, Hypertension, CKD Stage III Problem List: (1) CLL (chronic lymphocytic leukemia) (2) Contusion of face (3) Fall (4) Breast CA (5) Pneumonia (6) DOMENICA (acute kidney injury) Plan Patient has been non oliguric. BP is stable. WBC are chronically elevated. Possibly has ATN or A. Interstitial Nephritis. Continue IVF and antibiotics. Started on HD. Has been non oliguric. HD done yesterday. Urine out put is improving. Check BMP in AM. Possible HD in AM, unless has improvement in the Creatinine. Problem Qualifiers (1) Contusion of face: Qualified Code: S00.83XD - Contusion of face, subsequent encounter (2) Pneumonia: Qualified Code: J18.9 - Pneumonia of both lower lobes due to infectious organism Marysol Parry MD Jan 06, 2017 20:27
[2017-01-06] MEDS: traZODone HCL 50 MG TAB PO SCH (21:00)
[2017-01-06] MEDS: ZOLPIDEM TARTRATE 5 MG TAB PO PRN (21:52)
[2017-01-06] MEDS: ONDANSETRON HCL 4 MG/2 ML VIAL IV PUSH PRN (21:55)
[2017-01-07 00:28] VITALS: BP 129/64; PULSE 100; RESP 17; TEMP 96.9; O2SAT 93
[2017-01-07 05:25] LABS: BICARBONATE 27.4 MEQ/L (21.0-32.0); MAGNESIUM 2.1 MG/DL (1.5-2.5); POTASSIUM 3.6 MEQ/L (3.5-5.1)
[2017-01-07 08:00] VITALS: BP 153/72; PULSE 107; RESP 18; TEMP 96.6; O2SAT 92
[2017-01-07] MEDS: RESP: ALBUTEROL 2.5 MG/IPRATROPIUM 0.5 MG NEB (SCH) NEB ×3 (08:00→20:10)
[2017-01-07] MEDS: ASPIRIN 81 MG CHEW TAB CHEW SCH (08:28)
[2017-01-07] MEDS: ANASTROZOLE 1 MG TAB PO SCH (08:28)
[2017-01-07] MEDS: ATORVASTATIN 80 MG TAB PO SCH (08:30)
[2017-01-07] MEDS: amLODIPine BESYLATE 5 MG TAB PO SCH ×2 (08:30→22:04)
--- NOTE | 2017-01-07 11:36 | HHI.NPPN ---
Subjective General Problems: Anemia Renal Failure: Chronic, Acute, Stage III History of Present Illness 86-year-old female with a past medical history of chronic lymphocytic leukemia, history of breast cancer, hypertension, hyperlipidemia, stage III chronic kidney disease who came to the hospital with complaint of a history of fall and cough for four days before admission. I was called to see the patient because of elevated BUN and creatinine. The patient has a history of chronic kidney disease and she has been following with me in the office. Her last creatinine was done. The baseline creatinine is around 1.0 to 1.1 and the GFR around 47 to 46 cm/minute. Additional Remarks Patient is alert, seen on HD, no complain, started eating better. Review of Systems General Constitutional: Fatigue Respiratory Lungs: SOB, Cough, Sputum, Wheeze Cardiovascular Cardiac: ZELAYA Gastrointestinal Gastrointestinal: Nausea & Vomiting Objective Data Data 01/06/17 01/07/17 19:00 07:00 Intake Total 306 ml 720 ml Output Total 100 ml 1400 ml Balance 206 ml -680 ml Intake Oral 720 ml IV Total 306 ml Output Urine Total 100 ml 1400 ml # Voids 2 # Bowel Movements 2 4 Vital Signs Date Time Temp Pulse Resp B/P Pulse Ox O2 Delivery O2 Flow Rate FiO2 01/07/17 08:40 92 Nasal Cannula 2.00 Humidified 01/07/17 08:00 96.6 107 18 153/72 92 01/07/17 00:28 96.9 100 17 129/64 93 01/06/17 21:03 95 Nasal Cannula 2.00 01/06/17 20:16 96.8 89 17 155/77 91 01/06/17 16:00 96.6 95 18 160/68 95 01/06/17 13:36 93 Nasal Cannula 1.00 01/06/17 12:00 97.2 88 18 128/60 93 -: 01/07/17 0412 Physical Exam General Appearance: No Acute Distress, Comfortable Eyes Eye Exam: Pupils Equal Throat Throat Exam: Oral Mucosa [place] & Moist Neck Neck Exam: Trachea Midline Pulmonary Resp Exam: No Distress, Rhonchi, Decreased Bases, Diminished Breath Sounds Cardiology CV Exam: Regular, Normal Sinus Rhythm Gastrointestinal/Abdomen GI Exam: Soft, Non-Tender, Bowel Sounds Present Extremeties Extremities Exam: No Edema Neurologic Neuro Exam: Alert, Awake Psychiatric Psych Exam: Appropriate Responses Assessment/Plan Assessment Summary: DOMENICA/Acute Renal Failure, Hypertension, CKD Stage III Problem List: (1) CLL (chronic lymphocytic leukemia) (2) Contusion of face (3) Fall (4) Breast CA (5) Pneumonia (6) DOMENICA (acute kidney injury) Plan Patient has been non oliguric. BP is stable. WBC are chronically elevated. Possibly has ATN or A. Interstitial Nephritis. Continue IVF and antibiotics. Started on HD. Has been non oliguric. Urine out put is improving. Creatinine still increasing. HD now, watch over the weekend for renal improvement. Problem Qualifiers (1) Contusion of face: Qualified Code: S00.83XD - Contusion of face, subsequent encounter (2) Pneumonia: Qualified Code: J18.9 - Pneumonia of both lower lobes due to infectious organism Marysol Parry MD Jan 07, 2017 11:36
[2017-01-07 12:00] VITALS: BP 158/83; PULSE 101; RESP 19; TEMP 97; O2SAT 94
--- NOTE | 2017-01-07 12:26 | HHI.PR ---
Subjective Remarks Pt seen after dialysis. No new complaints. Pt still on 2L of supplemental O2 Objective Vitals Vital Signs Date Time Temp Pulse Resp B/P Pulse Ox O2 Delivery O2 Flow Rate FiO2 01/07/17 08:40 92 Nasal Cannula 2.00 Humidified 01/07/17 08:00 96.6 107 18 153/72 92 01/07/17 00:28 96.9 100 17 129/64 93 01/06/17 21:03 95 Nasal Cannula 2.00 01/06/17 20:16 96.8 89 17 155/77 91 01/06/17 16:00 96.6 95 18 160/68 95 01/06/17 13:36 93 Nasal Cannula 1.00 01/06/17 01/06/17 01/07/17 15:00 23:00 07:00 Intake Total 306 ml 360 ml 360 ml Output Total 100 ml 600 ml 800 ml Balance 206 ml -240 ml -440 ml Intake Oral 360 ml 360 ml IV Total 306 ml Output Urine Total 100 ml 600 ml 800 ml # Voids 2 # Bowel Movements 2 2 2 Result Diagram: 01/07/17 0412 Other Results Laboratory Tests Test 01/06/17 01/07/17 04:42 04:12 Sodium Level 146 MEQ/L 145 MEQ/L Potassium Level 3.5 MEQ/L 3.6 MEQ/L Chloride Level 109 MEQ/L 110 MEQ/L Carbon Dioxide Level 28.5 MEQ/L 27.4 MEQ/L Anion Gap 9 MEQ/L 8 MEQ/L Blood Urea Nitrogen 19 MG/DL 24 MG/DL Creatinine 3.35 MG/DL 4.14 MG/DL Estimat Glomerular Filtration 13 ML/MIN 10 ML/MIN Rate Random Glucose 94 MG/DL 98 MG/DL Calcium Level 7.7 MG/DL 7.6 MG/DL Magnesium Level 1.4 MG/DL 2.1 MG/DL Imaging Last Impressions Catheter Placement X-Ray 12/30/16 0000 Signed Impressions: Service Date/Time: December 12:27 - CONCLUSION: Uncomplicated line placement as above. Steve Ponce Jr., MD Renal Ultrasound 12/27/16 0000 Signed Impressions: Service Date/Time: Tuesday, December 27, 2016 20:43 - CONCLUSION: 1. There is increased echogenicity of both kidneys. This suggests chronic medical renal disease. 2. No hydronephrosis. 3. Small benign left renal cyst. 4. Mild right perinephric edema. Osmin Amos MD Pelvis X-Ray 12/26/16 1343 Signed Impressions: Service Date/Time: Monday, December 26, 2016 13:56 - CONCLUSION: No acute disease. Dave Serna MD Head CT 12/26/16 1343 Signed Impressions: Service Date/Time: Monday, December 26, 2016 14:53 - CONCLUSION: No acute intracranial abnormality. Dave Ibanez MD Cervical Spine CT 12/26/16 1343 Signed Impressions: Service Date/Time: Monday, December 26, 2016 14:53 - CONCLUSION: Intact cervical spine. Degenerative changes as above. Dave Ibanez MD Maxillofacial CT 12/26/16 0000 Signed Impressions: Service Date/Time: Monday, December 26, 2016 14:53 - CONCLUSION: 1. No facial fracture. 2. Diffusely heterogeneous marrow. Please see above. Dave Ibanez MD Chest X-Ray 12/26/16 0000 Signed Impressions: Service Date/Time: Monday, December 26, 2016 14:51 - CONCLUSION: Mild, nonspecific consolidation of the left lung. Dave Ibanez MD Chest CT 12/26/16 0000 Signed Impressions: Service Date/Time: Monday, December 26, 2016 14:59 - CONCLUSION: 1. Nothing convincing for acute trauma to the chest. 2. Patchy infiltrates in both mid and lower lungs that are most likely pre-existing, infectious or inflammatory. 3. Small pericardial effusion also probably nonacute. 4. Upper limits of normal size mediastinal lymph nodes without anything clearly pathologic. 5. Left breast surgery. 6. Coronary artery calcification. Dave Ibanez MD Objective Remarks General: NAD, AAOx3 Chest: Decreased breath sounds at the bases Cardiac: Regular Abd: +BS, soft ND/NT Ext: No edema A/P Problem List: (1) Fall Status: Acute Plan: - Pt is 86 yo admitted after a fall secondary to dizziness with LOC and sustained facial trauma/contusions - At admission pt noted to have DOMENICA, cough/chills. - CXR with chest infiltrates concerning for PNA, could consider radiation lung changes as pt s/p radiation for breast ca recently. - She has CLL and chronic leukocytosis. - PT recommending rehab after the conclusion of this hospitalization - Pts renal function was starting to improve on 01/06 but creatnine increased to 4.14 on 01/07. We will see what nephrology has planned as far as further dialysis vs. watchful waiting to see how her renal function improves. - Pt is planned to go to [facility] at the conclusion of this hospitalization. - DVT prophylaxis (2) DOMENICA (acute kidney injury) Status: Acute Plan: - comgmt with Nephrology - US kidneys, bladder, ureters (12/27/16) --> increased echogenicity of both kidneys c/w medical renal disease - NO improvement in pt's Creatinine with just IVF - Pt had VasCath placed (12/30/16) - undergoing HD m/w/f - Cr 4.14 today, pt underwent HD today. - Monitor renal function over the weekend as well. - Repeat labs in AM (3) Hyperkalemia Status: Acute Plan: - see above (4) Hypocalcemia Status: Acute Plan: - improving - likely d/t acute illness & poor nutritional status - repleted 12/29 (5) Contusion of face Status: Acute Plan: - Secondary to fall, see above (6) Pneumonia Status: Acute Plan: - leukocytosis improved from admission, but pt has underlying CLL - Pt was treated with Rocephin and azithromycin (12/27/16 - 01/01/17) - Pt still requiring supplemental O2. She has not been out of bed much. - Incentive spirometer - Resume Duonebs q6h while awake - Encourage ambulation and OOB - Blood Culture (12/26) with no growth to date (7) CLL (chronic lymphocytic leukemia) Status: Chronic Plan: - Follows with Dr. Wilson (8) Breast CA Status: Chronic Plan: - s/p lumpectomy and radiation. (9) Vaginal prolapse Status: Acute Plan: - f/u with orthotic and prosthetic technician outpt Assessment and Plan Patient examined. Assessment and plan formulated with Yasmeen Thrasher PA-C. I agree with the above. Problem Qualifiers (1) Contusion of face: Qualified Code: S00.83XD - Contusion of face, subsequent encounter (2) Pneumonia: Qualified Code: J18.9 - Pneumonia of both lower lobes due to infectious organism Yasmeen Thrasher Jan 07, 2017 12:26 Dimas Acosta MD Jan 07, 2017 13:07
[2017-01-07] MEDS: SODIUM CHLOR 0.9% 1000 ML INJ 1,000 ML IV SCH (12:53)
[2017-01-07] MEDS: ONDANSETRON HCL 4 MG/2 ML VIAL IV PUSH PRN (15:17)
[2017-01-07] MEDS: ACETAMINOPHEN 325 MG TAB PO PRN (15:18)
[2017-01-07 16:00] VITALS: BP 153/73; PULSE 94; RESP 16; TEMP 98; O2SAT 94
[2017-01-07 20:10] VITALS: O2SAT 94
[2017-01-07 20:35] VITALS: BP 158/72; PULSE 92; RESP 16; TEMP 98.2; O2SAT 98
[2017-01-07] MEDS: traZODone HCL 50 MG TAB PO SCH (21:00)
[2017-01-08] VITALS (7 sets, daily range): BP systolic 131–153; BP diastolic 66–83; PULSE 90–111; RESP 15–19; TEMP 97.3–98.5; O2SAT 93–96
[2017-01-08] MEDS: ACETAMINOPHEN 325 MG TAB PO PRN (01:26)
[2017-01-08] MEDS: SODIUM CHLOR 0.9% 1000 ML INJ 1,000 ML IV SCH ×2 (01:40→15:00)
[2017-01-08 05:12] LABS: POTASSIUM 3.5 MEQ/L (3.5-5.1)
[2017-01-08] MEDS: ONDANSETRON HCL 4 MG/2 ML VIAL IV PUSH PRN (06:56)
[2017-01-08] MEDS: RESP: ALBUTEROL 2.5 MG/IPRATROPIUM 0.5 MG NEB (SCH) NEB ×3 (07:50→19:48)
[2017-01-08] MEDS: amLODIPine BESYLATE 5 MG TAB PO SCH ×2 (09:11→21:28)
[2017-01-08] MEDS: ANASTROZOLE 1 MG TAB PO SCH (09:11)
[2017-01-08] MEDS: ASPIRIN 81 MG CHEW TAB CHEW SCH (09:11)
[2017-01-08] MEDS: ATORVASTATIN 80 MG TAB PO SCH (09:11)
--- NOTE | 2017-01-08 12:26 | HHI.PR ---
Subjective Remarks doing ok. eating breakfast. Objective Vitals heart reg lung cta abd s/nt ext no edema vascath. Vital Signs Date Time Temp Pulse Resp B/P Pulse Ox O2 Delivery O2 Flow Rate FiO2 01/08/17 08:00 98.1 98 16 133/66 95 01/08/17 07:52 93 Nasal Cannula 2.00 01/08/17 04:30 Nasal Cannula 2.00 Humidified 01/08/17 00:11 97.6 90 17 153/71 95 01/07/17 20:35 98.2 92 16 158/72 98 01/07/17 20:10 94 Nasal Cannula 2.00 01/07/17 16:00 98.0 94 16 153/73 94 01/07/17 01/07/17 01/08/17 15:00 23:00 07:00 Intake Total 800 ml 962 ml 984 ml Output Total 2150 ml 600 ml 600 ml Balance -1350 ml 362 ml 384 ml Intake Oral 720 ml 380 ml 380 ml IV Total 80 ml 582 ml 604 ml Output Urine Total 650 ml 600 ml 600 ml Hemodialysis 1500 ml # Bowel Movements 3 1 3 Result Diagram: 01/08/17 0349 Imaging Last Impressions Catheter Placement X-Ray 12/30/16 0000 Signed Impressions: Service Date/Time: December 12:27 - CONCLUSION: Uncomplicated line placement as above. Steve Ponce Jr., MD Renal Ultrasound 12/27/16 0000 Signed Impressions: Service Date/Time: Tuesday, December 27, 2016 20:43 - CONCLUSION: 1. There is increased echogenicity of both kidneys. This suggests chronic medical renal disease. 2. No hydronephrosis. 3. Small benign left renal cyst. 4. Mild right perinephric edema. Osmin Amos MD Pelvis X-Ray 12/26/16 1343 Signed Impressions: Service Date/Time: Monday, December 26, 2016 13:56 - CONCLUSION: No acute disease. Dave Serna MD Head CT 12/26/16 1343 Signed Impressions: Service Date/Time: Monday, December 26, 2016 14:53 - CONCLUSION: No acute intracranial abnormality. Dave Ibanez MD Cervical Spine CT 12/26/16 1343 Signed Impressions: Service Date/Time: Monday, December 26, 2016 14:53 - CONCLUSION: Intact cervical spine. Degenerative changes as above. Dave Ibanez MD Maxillofacial CT 12/26/16 0000 Signed Impressions: Service Date/Time: Monday, December 26, 2016 14:53 - CONCLUSION: 1. No facial fracture. 2. Diffusely heterogeneous marrow. Please see above. Dave Ibanez MD Chest X-Ray 12/26/16 0000 Signed Impressions: Service Date/Time: Monday, December 26, 2016 14:51 - CONCLUSION: Mild, nonspecific consolidation of the left lung. Dave Ibanez MD Chest CT 12/26/16 0000 Signed Impressions: Service Date/Time: Monday, December 26, 2016 14:59 - CONCLUSION: 1. Nothing convincing for acute trauma to the chest. 2. Patchy infiltrates in both mid and lower lungs that are most likely pre-existing, infectious or inflammatory. 3. Small pericardial effusion also probably nonacute. 4. Upper limits of normal size mediastinal lymph nodes without anything clearly pathologic. 5. Left breast surgery. 6. Coronary artery calcification. Dave Ibanez MD A/P Problem List: (1) Fall Status: Acute Plan: - Pt is 86 yo admitted after a fall secondary to dizziness with LOC and sustained facial trauma/contusions - At admission pt noted to have DOMENICA, cough/chills. - CXR with chest infiltrates concerning for PNA, could consider radiation lung changes as pt s/p radiation for breast ca recently. - She has CLL and chronic leukocytosis. - PT recommending rehab after the conclusion of this hospitalization - Pts renal function improving slowly. urinating more - We are hopeful she can be weaned off HD. If not then permcath and d/c to snf. - discussed everything with Daughter in [place] today. (2) DOMENICA (acute kidney injury) Status: Acute Plan: - comgmt with Nephrology - US kidneys, bladder, ureters (12/27/16) --> increased echogenicity of both kidneys c/w medical renal disease - NO improvement in pt's Creatinine with just IVF - Pt had VasCath placed (12/30/16) - undergoing HD m/w/f - Cr 4.14 today, pt underwent HD today. - Monitor renal function over the weekend as well. - Repeat labs in AM (3) Hyperkalemia Status: Acute Plan: - see above (4) Hypocalcemia Status: Acute Plan: - improving - likely d/t acute illness & poor nutritional status - repleted 12/29 (5) Contusion of face Status: Acute Plan: - Secondary to fall, see above (6) Pneumonia Status: Acute Plan: - leukocytosis improved from admission, but pt has underlying CLL - Pt was treated with Rocephin and azithromycin (12/27/16 - 01/01/17) - Pt still requiring supplemental O2. She has not been out of bed much. - Incentive spirometer - Resume Duonebs q6h while awake - Encourage ambulation and OOB - Blood Culture (12/26) with no growth to date (7) CLL (chronic lymphocytic leukemia) Status: Chronic Plan: - Follows with Dr. Wilson (8) Breast CA Status: Chronic Plan: - s/p lumpectomy and radiation. (9) Vaginal prolapse Status: Acute Plan: - f/u with reforestation worker outpt Problem Qualifiers (1) Contusion of face: Qualified Code: S00.83XD - Contusion of face, subsequent encounter (2) Pneumonia: Qualified Code: J18.9 - Pneumonia of both lower lobes due to infectious organism Dimas Acosta MD Jan 08, 2017 12:26
--- NOTE | 2017-01-08 16:23 | HHI.NPPN ---
Subjective General Problems: Anemia Renal Failure: Chronic, Acute, Stage III History of Present Illness 86-year-old female with a past medical history of chronic lymphocytic leukemia, history of breast cancer, hypertension, hyperlipidemia, stage III chronic kidney disease who came to the hospital with complaint of a history of fall and cough for four days before admission. I was called to see the patient because of elevated BUN and creatinine. The patient has a history of chronic kidney disease and she has been following with me in the office. Her last creatinine was done. The baseline creatinine is around 1.0 to 1.1 and the GFR around 47 to 46 cm/minute. Additional Remarks Patient is alert, no complain, started eating better. Review of Systems General Constitutional: Fatigue Respiratory Lungs: SOB, Cough, Sputum, Wheeze Cardiovascular Cardiac: ZELAYA Gastrointestinal Gastrointestinal: Nausea & Vomiting Objective Data Data 01/07/17 01/08/17 19:00 07:00 Intake Total 800 ml 1946 ml Output Total 2150 ml 1200 ml Balance -1350 ml 746 ml Intake Oral 720 ml 760 ml IV Total 80 ml 1186 ml Output Urine Total 650 ml 1200 ml Hemodialysis 1500 ml # Bowel Movements 3 4 Vital Signs Date Time Temp Pulse Resp B/P Pulse Ox O2 Delivery O2 Flow Rate FiO2 01/08/17 12:00 97.3 111 16 131/72 93 01/08/17 08:00 98.1 98 16 133/66 95 01/08/17 07:52 93 Nasal Cannula 2.00 01/08/17 04:30 Nasal Cannula 2.00 Humidified 01/08/17 00:11 97.6 90 17 153/71 95 01/07/17 20:35 98.2 92 16 158/72 98 01/07/17 20:10 94 Nasal Cannula 2.00 -: 01/08/17 0349 Physical Exam General Appearance: No Acute Distress, Comfortable Eyes Eye Exam: Pupils Equal Throat Throat Exam: Oral Mucosa [place] & Moist Neck Neck Exam: Trachea Midline Pulmonary Resp Exam: No Distress, Rhonchi, Decreased Bases, Diminished Breath Sounds Cardiology CV Exam: Regular, Normal Sinus Rhythm Gastrointestinal/Abdomen GI Exam: Soft, Non-Tender, Bowel Sounds Present Extremeties Extremities Exam: No Edema Neurologic Neuro Exam: Alert, Awake Psychiatric Psych Exam: Appropriate Responses Assessment/Plan Assessment Summary: DOMENICA/Acute Renal Failure, Hypertension, CKD Stage III Problem List: (1) CLL (chronic lymphocytic leukemia) (2) Contusion of face (3) Fall (4) Breast CA (5) Pneumonia (6) DOMENICA (acute kidney injury) Plan Patient has been non oliguric. BP is stable. WBC are chronically elevated. Possibly has ATN or Interstitial Nephritis. Continue IVF and antibiotics. Started on HD. she had HD yesterday 1.5 L off Cr lower Problem Qualifiers (1) Contusion of face: Qualified Code: S00.83XD - Contusion of face, subsequent encounter (2) Pneumonia: Qualified Code: J18.9 - Pneumonia of both lower lobes due to infectious organism Delia Covington MD Jan 08, 2017 16:23
[2017-01-08] MEDS: traZODone HCL 50 MG TAB PO SCH (21:28)
[2017-01-08] MEDS: ZOLPIDEM TARTRATE 5 MG TAB PO PRN (21:39)
[2017-01-09] VITALS (7 sets, daily range): BP systolic 129–171; BP diastolic 73–81; PULSE 87–109; RESP 14–19; TEMP 96.9–97.7; O2SAT 91–97
[2017-01-09] MEDS: SODIUM CHLOR 0.9% 1000 ML INJ 1,000 ML IV SCH ×2 (04:20→17:36)
[2017-01-09 04:39] LABS: BICARBONATE 27.7 MEQ/L (21.0-32.0); POTASSIUM 3.5 MEQ/L (3.5-5.1)
[2017-01-09] MEDS: ACETAMINOPHEN 325 MG TAB PO PRN (05:36)
[2017-01-09] MEDS: RESP: ALBUTEROL 2.5 MG/IPRATROPIUM 0.5 MG NEB (SCH) NEB ×2 (08:20→19:37)
[2017-01-09] MEDS: ASPIRIN 81 MG CHEW TAB CHEW SCH (08:21)
[2017-01-09] MEDS: amLODIPine BESYLATE 5 MG TAB PO SCH ×2 (08:21→20:42)
[2017-01-09] MEDS: ATORVASTATIN 80 MG TAB PO SCH (08:21)
[2017-01-09] MEDS: ANASTROZOLE 1 MG TAB PO SCH (08:21)
--- NOTE | 2017-01-09 14:03 | HHI.PR ---
Subjective Remarks doing ok. some pedal edema duke. Objective Vitals heart reg lung cta abd s/nt ext pedal edema vascath. Vital Signs Date Time Temp Pulse Resp B/P Pulse Ox O2 Delivery O2 Flow Rate FiO2 01/09/17 12:00 97.0 103 15 137/73 94 01/09/17 08:16 Nasal Cannula 01/09/17 08:00 97.7 101 14 142/75 91 01/09/17 00:00 97.6 87 18 129/77 97 01/08/17 21:22 96 Nasal Cannula 2.00 Humidified 01/08/17 20:00 98.5 94 19 146/83 96 01/08/17 19:50 93 Nasal Cannula 2.00 01/08/17 16:00 97.5 100 15 152/75 94 01/08/17 01/08/17 01/09/17 15:00 23:00 07:00 Intake Total 360 ml 646 ml 683 ml Output Total 450 ml 550 ml 600 ml Balance -90 ml 96 ml 83 ml Intake Oral 360 ml 240 ml 240 ml IV Total 406 ml 443 ml Output Urine Total 450 ml 550 ml 600 ml # Bowel Movements 1 1 Result Diagram: 01/09/17 0316 Imaging Last Impressions Catheter Placement X-Ray 12/30/16 0000 Signed Impressions: Service Date/Time: December 12:27 - CONCLUSION: Uncomplicated line placement as above. Steve Ponce Jr., MD Renal Ultrasound 12/27/16 0000 Signed Impressions: Service Date/Time: Tuesday, December 27, 2016 20:43 - CONCLUSION: 1. There is increased echogenicity of both kidneys. This suggests chronic medical renal disease. 2. No hydronephrosis. 3. Small benign left renal cyst. 4. Mild right perinephric edema. Osmin Amos MD Pelvis X-Ray 12/26/16 134 Signed Impressions: Service Date/Time: Monday, December 26, 2016 13:56 - CONCLUSION: No acute disease. Dave Serna MD Head CT 12/26/16 1343 Signed Impressions: Service Date/Time: Monday, December 26, 2016 14:53 - CONCLUSION: No acute intracranial abnormality. Dave Ibanez MD Cervical Spine CT 12/26/16 134 Signed Impressions: Service Date/Time: Monday, December 26, 2016 14:53 - CONCLUSION: Intact cervical spine. Degenerative changes as above. Dave Ibanze MD Maxillofacial CT 12/26/16 0000 Signed Impressions: Service Date/Time: Monday, December 26, 2016 14:53 - CONCLUSION: 1. No facial fracture. 2. Diffusely heterogeneous marrow. Please see above. Dave Ibanez MD Chest X-Ray 12/26/16 0000 Signed Impressions: Service Date/Time: Monday, December 26, 2016 14:51 - CONCLUSION: Mild, nonspecific consolidation of the left lung. Dave Ibanez MD Chest CT 12/26/16 0000 Signed Impressions: Service Date/Time: Monday, December 26, 2016 14:59 - CONCLUSION: 1. Nothing convincing for acute trauma to the chest. 2. Patchy infiltrates in both mid and lower lungs that are most likely pre-existing, infectious or inflammatory. 3. Small pericardial effusion also probably nonacute. 4. Upper limits of normal size mediastinal lymph nodes without anything clearly pathologic. 5. Left breast surgery. 6. Coronary artery calcification. Dave Ibanez MD A/P Problem List: (1) Fall Status: Acute Plan: - Pt is 86 yo admitted after a fall secondary to dizziness with LOC and sustained facial trauma/contusions - At admission pt noted to have DOMENICA, cough/chills. - CXR with chest infiltrates concerning for PNA, could consider radiation lung changes as pt s/p radiation for breast ca recently. - She has CLL and chronic leukocytosis. - PT recommending rehab after the conclusion of this hospitalization - Pts renal function improving slowly. urinating more - We are hopeful she can be weaned off HD. If not then permcath and d/c to snf. - discussed everything with Daughter in [place] today. -scd's. kimberly mcguire. (2) DOMENICA (acute kidney injury) Status: Acute Plan: - comgmt with Nephrology - US kidneys, bladder, ureters (12/27/16) --> increased echogenicity of both kidneys c/w medical renal disease - NO improvement in pt's Creatinine with just IVF - Pt had VasCath placed (12/30/16) - undergoing HD m/w/f - Cr 4.14 today, pt underwent HD today. - Monitor renal function over the weekend as well. - Repeat labs in AM (3) Hyperkalemia Status: Acute Plan: - see above (4) Hypocalcemia Status: Acute Plan: - improving - likely d/t acute illness & poor nutritional status - repleted 12/29 (5) Contusion of face Status: Acute Plan: - Secondary to fall, see above (6) Pneumonia Status: Acute Plan: - leukocytosis improved from admission, but pt has underlying CLL - Pt was treated with Rocephin and azithromycin (12/27/16 - 01/01/17) - Pt still requiring supplemental O2. She has not been out of bed much. - Incentive spirometer - Resume Duonebs q6h while awake - Encourage ambulation and OOB - Blood Culture (12/26) with no growth to date (7) CLL (chronic lymphocytic leukemia) Status: Chronic Plan: - Follows with Dr. Wilson (8) Breast CA Status: Chronic Plan: - s/p lumpectomy and radiation. (9) Vaginal prolapse Status: Acute Plan: - f/u with production supv outpt Problem Qualifiers (1) Contusion of face: Qualified Code: S00.83XD - Contusion of face, subsequent encounter (2) Pneumonia: Qualified Code: J18.9 - Pneumonia of both lower lobes due to infectious organism Dimas Acosta MD Jan 09, 2017 14:03
[2017-01-09] MEDS: ONDANSETRON HCL 4 MG/2 ML VIAL IV PRN (14:41)
--- NOTE | 2017-01-09 15:26 | HHI.NPPN ---
Subjective General Problems: Anemia Renal Failure: Chronic, Acute, Stage III History of Present Illness 86-year-old female with a past medical history of chronic lymphocytic leukemia, history of breast cancer, hypertension, hyperlipidemia, stage III chronic kidney disease who came to the hospital with complaint of a history of fall and cough for four days before admission. I was called to see the patient because of elevated BUN and creatinine. The patient has a history of chronic kidney disease and she has been following with me in the office. Her last creatinine was done. The baseline creatinine is around 1.0 to 1.1 and the GFR around 47 to 46 cm/minute. Additional Remarks Patient is alert,, no complain, started eating better. Review of Systems General Constitutional: Fatigue Respiratory Lungs: SOB, Cough, Sputum, Wheeze Cardiovascular Cardiac: ZELAYA Gastrointestinal Gastrointestinal: Nausea & Vomiting Objective Data Data 01/08/17 01/09/17 19:00 07:00 Intake Total 360 ml 1329 ml Output Total 450 ml 1150 ml Balance -90 ml 179 ml Intake Oral 360 ml 480 ml IV Total 849 ml Output Urine Total 450 ml 1150 ml # Bowel Movements 1 1 Vital Signs Date Time Temp Pulse Resp B/P Pulse Ox O2 Delivery O2 Flow Rate FiO2 01/09/17 12:00 97.0 103 15 137/73 94 01/09/17 08:16 Nasal Cannula 01/09/17 08:00 97.7 101 14 142/75 91 01/09/17 00:00 97.6 87 18 129/77 97 01/08/17 21:22 96 Nasal Cannula 2.00 Humidified 01/08/17 20:00 98.5 94 19 146/83 96 01/08/17 19:50 93 Nasal Cannula 2.00 01/08/17 16:00 97.5 100 15 152/75 94 -: 01/09/17 0316 Physical Exam General Appearance: No Acute Distress, Comfortable Eyes Eye Exam: Pupils Equal Throat Throat Exam: Oral Mucosa [place] & Moist Neck Neck Exam: Trachea Midline Pulmonary Resp Exam: No Distress, Rhonchi, Decreased Bases, Diminished Breath Sounds Cardiology CV Exam: Regular, Normal Sinus Rhythm Gastrointestinal/Abdomen GI Exam: Soft, Non-Tender, Bowel Sounds Present Extremeties Extremities Exam: No Edema Neurologic Neuro Exam: Alert, Awake Psychiatric Psych Exam: Appropriate Responses Assessment/Plan Assessment Summary: DOMENICA/Acute Renal Failure, Hypertension, CKD Stage III Problem List: (1) CLL (chronic lymphocytic leukemia) (2) Contusion of face (3) Fall (4) Breast CA (5) Pneumonia (6) DOMENICA (acute kidney injury) Plan Patient has been non oliguric. BP is stable. WBC are chronically elevated. Possibly has ATN or Interstitial Nephritis. Continue IVF and antibiotics. Started on HD. she had HD Tuesday 1.5 L off Cr lower Dr. Parry to follow Problem Qualifiers (1) Contusion of face: Qualified Code: S00.83XD - Contusion of face, subsequent encounter (2) Pneumonia: Qualified Code: J18.9 - Pneumonia of both lower lobes due to infectious organism Delia Covington MD Jan 09, 2017 15:25
[2017-01-09] MEDS: traZODone HCL 50 MG TAB PO SCH (20:43)
[2017-01-09] MEDS: ZOLPIDEM TARTRATE 5 MG TAB PO PRN (21:38)
[2017-01-10] VITALS (7 sets, daily range): BP systolic 127–165; BP diastolic 65–83; PULSE 90–107; RESP 17–20; TEMP 96.7–98.4; O2SAT 93–96
[2017-01-10 05:43] LABS: BICARBONATE 26.8 MEQ/L (21.0-32.0); POTASSIUM 3.3 MEQ/L (3.5-5.1)
[2017-01-10] MEDS: SODIUM CHLOR 0.9% 1000 ML INJ 1,000 ML IV SCH ×2 (07:00→20:22)
[2017-01-10] MEDS: ONDANSETRON HCL 4 MG/2 ML VIAL IV PUSH PRN (07:54)
[2017-01-10] MEDS: RESP: ALBUTEROL 2.5 MG/IPRATROPIUM 0.5 MG NEB (SCH) NEB ×3 (08:41→19:57)
--- NOTE | 2017-01-10 10:35 | HHI.NPPN ---
Subjective General Problems: Anemia Renal Failure: Chronic, Acute, Stage III History of Present Illness 86-year-old female with a past medical history of chronic lymphocytic leukemia, history of breast cancer, hypertension, hyperlipidemia, stage III chronic kidney disease who came to the hospital with complaint of a history of fall and cough for four days before admission. I was called to see the patient because of elevated BUN and creatinine. The patient has a history of chronic kidney disease and she has been following with me in the office. Her last creatinine was done. The baseline creatinine is around 1.0 to 1.1 and the GFR around 47 to 46 cm/minute. Additional Remarks Patient is alert, seen on HD, no SOB. Review of Systems General Constitutional: Fatigue Respiratory Lungs: SOB, Cough, Sputum, Wheeze Cardiovascular Cardiac: ZELAYA Gastrointestinal Gastrointestinal: Nausea & Vomiting Objective Data Data 01/09/17 01/10/17 19:00 07:00 Intake Total 240 ml 1503 ml Output Total 500 ml Balance -260 ml 1503 ml Intake Oral 240 ml 480 ml IV Total 1023 ml Output Urine Total 500 ml # Voids 1 4 # Bowel Movements 1 2 Vital Signs Date Time Temp Pulse Resp B/P Pulse Ox O2 Delivery O2 Flow Rate FiO2 01/10/17 08:00 97.3 98 17 165/83 93 01/10/17 00:00 97.0 90 19 149/80 94 01/09/17 20:00 97.6 109 19 171/81 94 01/09/17 19:50 94 Nasal Cannula 2.00 Humidified 01/09/17 19:38 92 Nasal Cannula 2.00 01/09/17 16:00 96.9 91 16 154/76 92 01/09/17 12:00 97.0 103 15 137/73 94 -: 01/10/17 0508 Physical Exam General Appearance: No Acute Distress, Comfortable Eyes Eye Exam: Pupils Equal Throat Throat Exam: Oral Mucosa [place] & Moist Neck Neck Exam: Trachea Midline Pulmonary Resp Exam: No Distress, Rhonchi, Decreased Bases, Diminished Breath Sounds Cardiology CV Exam: Regular, Normal Sinus Rhythm Gastrointestinal/Abdomen GI Exam: Soft, Non-Tender, Bowel Sounds Present Extremeties Extremities Exam: No Edema Neurologic Neuro Exam: Alert, Awake Psychiatric Psych Exam: Appropriate Responses Assessment/Plan Assessment Summary: DOMENICA/Acute Renal Failure, Hypertension, CKD Stage III Problem List: (1) CLL (chronic lymphocytic leukemia) (2) Contusion of face (3) Fall (4) Breast CA (5) Pneumonia (6) DOMENICA (acute kidney injury) Plan Patient has been non oliguric. BP is stable. WBC are chronically elevated. Possibly has ATN or Interstitial Nephritis. Continue IVF and antibiotics. Started on HD. Patient has good urine out put. Creatinine increasing again. Continue HD now, K was low, on high K with HD. Follow BMP and HD as needed. Problem Qualifiers (1) Contusion of face: Qualified Code: S00.83XD - Contusion of face, subsequent encounter (2) Pneumonia: Qualified Code: J18.9 - Pneumonia of both lower lobes due to infectious organism Marysol Parry MD Jan 10, 2017 10:35
[2017-01-10] MEDS: GENTAMICIN SULFATE (DIALYSIS USE ONLY) 20 MG/2 ML VIAL IV PRN (11:40)
[2017-01-10] MEDS: HEPARIN SODIUM - IV 10,000 UNITS/10 ML VIAL PRN (11:40)
[2017-01-10] MEDS: ANASTROZOLE 1 MG TAB PO SCH (12:50)
[2017-01-10] MEDS: amLODIPine BESYLATE 5 MG TAB PO SCH ×2 (12:50→20:22)
[2017-01-10] MEDS: ATORVASTATIN 80 MG TAB PO SCH (12:50)
[2017-01-10] MEDS: ASPIRIN 81 MG CHEW TAB CHEW SCH (12:50)
--- NOTE | 2017-01-10 14:52 | HHI.PR ---
Subjective Remarks No new complaints. Objective Vitals Vital Signs Date Time Temp Pulse Resp B/P Pulse Ox O2 Delivery O2 Flow Rate FiO2 01/10/17 13:46 96 Nasal Cannula 3.00 01/10/17 12:53 96.7 107 18 153/72 94 01/10/17 08:00 97.3 98 17 165/83 93 01/10/17 00:00 97.0 90 19 149/80 94 01/09/17 20:00 97.6 109 19 171/81 94 01/09/17 19:50 94 Nasal Cannula 2.00 Humidified 01/09/17 19:38 92 Nasal Cannula 2.00 01/09/17 16:00 96.9 91 16 154/76 92 01/09/17 01/09/17 01/10/17 15:00 23:00 07:00 Intake Total 240 ml 627 ml 876 ml Output Total 500 ml Balance -260 ml 627 ml 876 ml Intake Oral 240 ml 240 ml 240 ml IV Total 387 ml 636 ml Output Urine Total 500 ml # Voids 1 2 2 # Bowel Movements 1 2 Result Diagram: 01/10/17 0508 Imaging Last Impressions Catheter Placement X-Ray 12/30/16 0000 Signed Impressions: Service Date/Time: December 12:27 - CONCLUSION: Uncomplicated line placement as above. Steve Ponce Jr., MD Renal Ultrasound 12/27/16 0000 Signed Impressions: Service Date/Time: Tuesday, December 27, 2016 20:43 - CONCLUSION: 1. There is increased echogenicity of both kidneys. This suggests chronic medical renal disease. 2. No hydronephrosis. 3. Small benign left renal cyst. 4. Mild right perinephric edema. Osmin Amos MD Pelvis X-Ray 12/26/16 1343 Signed Impressions: Service Date/Time: Monday, December 26, 2016 13:56 - CONCLUSION: No acute disease. Dave Serna MD Head CT 12/26/16 1343 Signed Impressions: Service Date/Time: Monday, December 26, 2016 14:53 - CONCLUSION: No acute intracranial abnormality. Dave Ibanez MD Cervical Spine CT 12/26/16 1343 Signed Impressions: Service Date/Time: Monday, December 26, 2016 14:53 - CONCLUSION: Intact cervical spine. Degenerative changes as above. Dave Iabnez MD Maxillofacial CT 12/26/16 0000 Signed Impressions: Service Date/Time: Monday, December 26, 2016 14:53 - CONCLUSION: 1. No facial fracture. 2. Diffusely heterogeneous marrow. Please see above. Dave Ibanez MD Chest X-Ray 12/26/16 0000 Signed Impressions: Service Date/Time: Monday, December 26, 2016 14:51 - CONCLUSION: Mild, nonspecific consolidation of the left lung. Dave Ibanez MD Chest CT 12/26/16 0000 Signed Impressions: Service Date/Time: Monday, December 26, 2016 14:59 - CONCLUSION: 1. Nothing convincing for acute trauma to the chest. 2. Patchy infiltrates in both mid and lower lungs that are most likely pre-existing, infectious or inflammatory. 3. Small pericardial effusion also probably nonacute. 4. Upper limits of normal size mediastinal lymph nodes without anything clearly pathologic. 5. Left breast surgery. 6. Coronary artery calcification. Dave Ibanez MD Objective Remarks GENERAL: This is a well-nourished, well-developed patient, in no apparent distress. CARDIOVASCULAR: Regular rate and rhythm without murmurs, gallops, or rubs. RESPIRATORY: Clear to auscultation. Breath sounds equal bilaterally. No wheezes , rales, or rhonchi. GASTROINTESTINAL: Abdomen soft, non-tender, nondistended. Normal active bowel sounds MUSCULOSKELETAL: Extremities without clubbing, cyanosis, or edema. NEURO: Alert & Oriented x4 to person, place, time, situation. Moves all ext x4 A/P Problem List: (1) Fall Status: Acute Plan: - Pt is 86 yo admitted after a fall secondary to dizziness with LOC and sustained facial trauma/contusions - At admission pt noted to have DOMENICA, cough/chills. - CXR with chest infiltrates concerning for PNA, could consider radiation lung changes as pt s/p radiation for breast ca recently. - She has CLL and chronic leukocytosis. - Renal function again worsening - Case d/w Dr. Parry (01/10/17) He would prefer to give a few more HD treatments and follow response prior to making decision on chronic dialysis - Pt will need SNF at conclusion of this hospitalization -[facility]. kimberly mcguire. (2) DOMENICA (acute kidney injury) Status: Acute Plan: - comgmt with Nephrology - US kidneys, bladder, ureters (12/27/16) --> increased echogenicity of both kidneys c/w medical renal disease - Pt had VasCath placed (12/30/16) - undergoing HD m/w/f - Cr 4.46 (01/10/17) - see above (3) Hyperkalemia Status: Acute Plan: - see above (4) Hypocalcemia Status: Acute Plan: - improving - likely d/t acute illness & poor nutritional status - repleted 12/29 (5) Contusion of face Status: Acute Plan: - Secondary to fall, see above (6) Pneumonia Status: Acute Plan: - leukocytosis improved from admission, but pt has underlying CLL - Pt was treated with Rocephin and azithromycin (12/27/16 - 01/01/17) - Pt still requiring supplemental O2. - Incentive spirometer - Duonebs q6h while awake - Encourage ambulation and OOB - Blood Culture (12/26) with no growth to date (7) CLL (chronic lymphocytic leukemia) Status: Chronic Plan: - Follows with Dr. Wilson (8) Breast CA Status: Chronic Plan: - s/p lumpectomy and radiation. (9) Vaginal prolapse Status: Acute Plan: - f/u with correctional officer lieutenant outpt Problem Qualifiers (1) Contusion of face: Qualified Code: S00.83XD - Contusion of face, subsequent encounter (2) Pneumonia: Qualified Code: J18.9 - Pneumonia of both lower lobes due to infectious organism Thom Murillo DO Jan 10, 2017 14:52
[2017-01-10] MEDS: traZODone HCL 50 MG TAB PO SCH (20:22)
[2017-01-11] VITALS (7 sets, daily range): BP systolic 122–152; BP diastolic 61–72; PULSE 90–95; RESP 17–20; TEMP 96.9–98.4; O2SAT 93–97
[2017-01-11 05:56] LABS: BICARBONATE 31.7 MEQ/L (21.0-32.0); MAGNESIUM 1.6 MG/DL (1.5-2.5); POTASSIUM 3.7 MEQ/L (3.5-5.1)
[2017-01-11] MEDS: RESP: ALBUTEROL 2.5 MG/IPRATROPIUM 0.5 MG NEB (SCH) NEB ×3 (08:00→19:39)
[2017-01-11] MEDS: ASPIRIN 81 MG CHEW TAB CHEW SCH (09:42)
[2017-01-11] MEDS: SODIUM CHLOR 0.9% 1000 ML INJ 1,000 ML IV SCH ×2 (09:42→21:13)
[2017-01-11] MEDS: amLODIPine BESYLATE 5 MG TAB PO SCH ×2 (09:42→21:13)
[2017-01-11] MEDS: ANASTROZOLE 1 MG TAB PO SCH (09:46)
[2017-01-11] MEDS: ATORVASTATIN 80 MG TAB PO SCH (09:46)
--- NOTE | 2017-01-11 14:05 | HHI.PR ---
Subjective Remarks No new complaints. Objective Vitals Vital Signs Date Time Temp Pulse Resp B/P Pulse Ox O2 Delivery O2 Flow Rate FiO2 01/11/17 12:35 97 Nasal Cannula 3.00 01/11/17 12:00 96.9 90 18 152/70 94 01/11/17 08:00 98.2 90 17 145/72 95 01/11/17 00:00 97.9 90 20 140/61 95 01/10/17 20:30 Nasal Cannula 2.00 01/10/17 20:00 98.4 100 20 151/72 95 01/10/17 19:57 95 Nasal Cannula 3.00 01/10/17 16:00 98.4 102 19 127/65 94 01/10/17 01/10/17 01/11/17 15:00 23:00 07:00 Intake Total 350 ml 850 ml 710 ml Output Total 3000 ml Balance -2650 ml 850 ml 710 ml Intake Oral 350 ml 240 ml 120 ml IV Total 610 ml 590 ml Hemodialysis 3000 ml # Voids 3 2 3 # Bowel Movements 2 0 1 Result Diagram: 01/11/17 0437 Imaging Last Impressions Catheter Placement X-Ray 12/30/16 0000 Signed Impressions: Service Date/Time: December 12:27 - CONCLUSION: Uncomplicated line placement as above. Steve Ponce Jr., MD Renal Ultrasound 12/27/16 0000 Signed Impressions: Service Date/Time: Tuesday, December 27, 2016 20:43 - CONCLUSION: 1. There is increased echogenicity of both kidneys. This suggests chronic medical renal disease. 2. No hydronephrosis. 3. Small benign left renal cyst. 4. Mild right perinephric edema. Osmin Amos MD Pelvis X-Ray [id number]/[id number] Signed Impressions: Service Date/Time: Monday, December 26, 2016 13:56 - CONCLUSION: No acute disease. Dave Serna MD Head CT [id number]/[id number] Signed Impressions: Service Date/Time: Monday, December 26, 2016 14:53 - CONCLUSION: No acute intracranial abnormality. Dave Ibanez MD Cervical Spine CT 12/26/16 134 Signed Impressions: Service Date/Time: Monday, December 26, 2016 14:53 - CONCLUSION: Intact cervical spine. Degenerative changes as above. Dave Ibanez MD Maxillofacial CT 12/26/16 0000 Signed Impressions: Service Date/Time: Monday, December 26, 2016 14:53 - CONCLUSION: 1. No facial fracture. 2. Diffusely heterogeneous marrow. Please see above. Dave Ibanez MD Chest X-Ray 12/26/16 0000 Signed Impressions: Service Date/Time: Monday, December 26, 2016 14:51 - CONCLUSION: Mild, nonspecific consolidation of the left lung. Dave Ibanez MD Chest CT 12/26/16 0000 Signed Impressions: Service Date/Time: Monday, December 26, 2016 14:59 - CONCLUSION: 1. Nothing convincing for acute trauma to the chest. 2. Patchy infiltrates in both mid and lower lungs that are most likely pre-existing, infectious or inflammatory. 3. Small pericardial effusion also probably nonacute. 4. Upper limits of normal size mediastinal lymph nodes without anything clearly pathologic. 5. Left breast surgery. 6. Coronary artery calcification. Dave Ibanez MD Objective Remarks GENERAL: This is a well-nourished, well-developed patient, in no apparent distress. CARDIOVASCULAR: Regular rate and rhythm without murmurs, gallops, or rubs. RESPIRATORY: Clear to auscultation. Breath sounds equal bilaterally. No wheezes , rales, or rhonchi. GASTROINTESTINAL: Abdomen soft, non-tender, nondistended. Normal active bowel sounds MUSCULOSKELETAL: Extremities without clubbing, cyanosis, or edema. NEURO: Alert & Oriented x4 to person, place, time, situation. Moves all ext x4 A/P Problem List: (1) Fall Status: Acute Plan: - Pt is 86 yo admitted after a fall secondary to dizziness with LOC and sustained facial trauma/contusions - At admission pt noted to have DOMENICA, cough/chills. - CXR with chest infiltrates concerning for PNA, could consider radiation lung changes as pt s/p radiation for breast ca recently. - She has CLL and chronic leukocytosis. - Renal function again worsening - Case d/w Dr. Parry (01/10/17) He would prefer to give a few more HD treatments and follow response prior to making decision on chronic dialysis - Pt will need SNF at conclusion of this hospitalization -[facility]. kimberly shayla. 01/01/17 - pt interviewed and examined - continue current treatment plan as outlined above. (2) DOMENICA (acute kidney injury) Status: Acute Plan: - comgmt with Nephrology - US kidneys, bladder, ureters (12/27/16) --> increased echogenicity of both kidneys c/w medical renal disease - Pt had VasCath placed (12/30/16) - undergoing HD m/w/f - Cr 4.46 (01/10/17) - Cr 3.45 (01/11/17) - see above (3) Hyperkalemia Status: Acute Plan: - see above (4) Hypocalcemia Status: Acute Plan: - improving - likely d/t acute illness & poor nutritional status - repleted 12/29 (5) Contusion of face Status: Acute Plan: - Secondary to fall, see above (6) Pneumonia Status: Acute Plan: - leukocytosis improved from admission, but pt has underlying CLL - Pt was treated with Rocephin and azithromycin (12/27/16 - 01/01/17) - Pt still requiring supplemental O2. - Incentive spirometer - Duonebs q6h while awake - Encourage ambulation and OOB - Blood Culture (12/26) with no growth to date (7) CLL (chronic lymphocytic leukemia) Status: Chronic Plan: - Follows with Dr. Wilson (8) Breast CA Status: Chronic Plan: - s/p lumpectomy and radiation. (9) Vaginal prolapse Status: Acute Plan: - f/u with credit administration officer outpt Problem Qualifiers (1) Contusion of face: Qualified Code: S00.83XD - Contusion of face, subsequent encounter (2) Pneumonia: Qualified Code: J18.9 - Pneumonia of both lower lobes due to infectious organism Thom Murillo DO Jan 11, 2017 14:05
[2017-01-11] MEDS: ONDANSETRON HCL 4 MG/2 ML VIAL IV PUSH PRN (15:43)
--- NOTE | 2017-01-11 16:41 | HHI.NPPN ---
Subjective General Problems: Anemia Renal Failure: Chronic, Acute, Stage III History of Present Illness 86-year-old female with a past medical history of chronic lymphocytic leukemia, history of breast cancer, hypertension, hyperlipidemia, stage III chronic kidney disease who came to the hospital with complaint of a history of fall and cough for four days before admission. I was called to see the patient because of elevated BUN and creatinine. The patient has a history of chronic kidney disease and she has been following with me in the office. Her last creatinine was done. The baseline creatinine is around 1.0 to 1.1 and the GFR around 47 to 46 cm/minute. Additional Remarks Patient is alert, no complain, feeling better. Review of Systems General Constitutional: Fatigue Respiratory Lungs: SOB, Cough, Sputum, Wheeze Cardiovascular Cardiac: ZELAYA Gastrointestinal Gastrointestinal: Nausea & Vomiting Objective Data Data 01/10/17 01/11/17 19:00 07:00 Intake Total 350 ml 1560 ml Output Total 3000 ml Balance -2650 ml 1560 ml Intake Oral 350 ml 360 ml IV Total 1200 ml Hemodialysis 3000 ml # Voids 3 5 # Bowel Movements 2 1 Vital Signs Date Time Temp Pulse Resp B/P Pulse Ox O2 Delivery O2 Flow Rate FiO2 01/11/17 12:35 97 Nasal Cannula 3.00 01/11/17 12:00 96.9 90 18 152/70 94 01/11/17 08:00 98.2 90 17 145/72 95 01/11/17 00:00 97.9 90 20 140/61 95 01/10/17 20:30 Nasal Cannula 2.00 01/10/17 20:00 98.4 100 20 151/72 95 01/10/17 19:57 95 Nasal Cannula 3.00 -: 01/11/17 0437 Physical Exam General Appearance: No Acute Distress, Comfortable Eyes Eye Exam: Pupils Equal Throat Throat Exam: Oral Mucosa [place] & Moist Neck Neck Exam: Trachea Midline Pulmonary Resp Exam: No Distress, Rhonchi, Decreased Bases, Diminished Breath Sounds Cardiology CV Exam: Regular, Normal Sinus Rhythm Gastrointestinal/Abdomen GI Exam: Soft, Non-Tender, Bowel Sounds Present Extremeties Extremities Exam: No Edema Neurologic Neuro Exam: Alert, Awake Psychiatric Psych Exam: Appropriate Responses Assessment/Plan Assessment Summary: DOMENICA/Acute Renal Failure, Hypertension, CKD Stage III Problem List: (1) CLL (chronic lymphocytic leukemia) (2) Contusion of face (3) Fall (4) Breast CA (5) Pneumonia (6) DOMENICA (acute kidney injury) Plan Patient has been non oliguric. BP is stable. WBC are chronically elevated. Possibly has ATN or Interstitial Nephritis. Continue IVF and antibiotics. Started on HD. Patient has good urine out put. Creatinine still elevated. Continue HD as needed. I spoke to the daughter on the phone. Problem Qualifiers (1) Contusion of face: Qualified Code: S00.83XD - Contusion of face, subsequent encounter (2) Pneumonia: Qualified Code: J18.9 - Pneumonia of both lower lobes due to infectious organism Marysol Parry MD Jan 11, 2017 16:41
[2017-01-11] MEDS: traZODone HCL 50 MG TAB PO SCH (21:13)
[2017-01-11] MEDS: ZOLPIDEM TARTRATE 5 MG TAB PO PRN (22:37)
[2017-01-12] VITALS: BP 119/68; PULSE 88; RESP 18; TEMP 97.8; O2SAT 94
[2017-01-12 05:09] LABS: BICARBONATE 29.1 MEQ/L (21.0-32.0); MAGNESIUM 1.5 MG/DL (1.5-2.5); POTASSIUM 3.5 MEQ/L (3.5-5.1)
[2017-01-12 08:00] VITALS: BP 148/71; PULSE 97; RESP 20; TEMP 97.4; O2SAT 93
[2017-01-12] MEDS: RESP: ALBUTEROL 2.5 MG/IPRATROPIUM 0.5 MG NEB (SCH) NEB ×3 (08:00→21:16)
[2017-01-12] MEDS: amLODIPine BESYLATE 5 MG TAB PO SCH ×2 (08:09→21:45)
[2017-01-12] MEDS: ANASTROZOLE 1 MG TAB PO SCH (08:09)
[2017-01-12] MEDS: ASPIRIN 81 MG CHEW TAB CHEW SCH (08:09)
[2017-01-12] MEDS: ATORVASTATIN 80 MG TAB PO SCH (08:10)
[2017-01-12] MEDS: HEPARIN SODIUM - IV 10,000 UNITS/10 ML VIAL PRN (10:38)
[2017-01-12] MEDS: GENTAMICIN SULFATE (DIALYSIS USE ONLY) 20 MG/2 ML VIAL IV PRN (10:38)
--- NOTE | 2017-01-12 11:03 | HHI.NPPN ---
Subjective General Problems: Anemia Renal Failure: Chronic, Acute, Stage III History of Present Illness 86-year-old female with a past medical history of chronic lymphocytic leukemia, history of breast cancer, hypertension, hyperlipidemia, stage III chronic kidney disease who came to the hospital with complaint of a history of fall and cough for four days before admission. I was called to see the patient because of elevated BUN and creatinine. The patient has a history of chronic kidney disease and she has been following with me in the office. Her last creatinine was done. The baseline creatinine is around 1.0 to 1.1 and the GFR around 47 to 46 cm/minute. Additional Remarks Patient is alert, no SOB, eating better, not in distress, seen during HD. Review of Systems General Constitutional: Fatigue Respiratory Lungs: SOB, Cough, Sputum, Wheeze Cardiovascular Cardiac: ZELAYA Gastrointestinal Gastrointestinal: Nausea & Vomiting Objective Data Data 01/11/17 01/12/17 19:00 07:00 Intake Total 1050 ml 1680 ml Output Total 400 ml Balance 650 ml 1680 ml Intake Oral 475 ml 720 ml IV Total 575 ml 960 ml Output Urine Total 400 ml # Voids 9 # Bowel Movements 2 2 Vital Signs Date Time Temp Pulse Resp B/P Pulse Ox O2 Delivery O2 Flow Rate FiO2 01/12/17 08:00 97.4 97 20 148/71 93 01/12/17 00:00 97.8 88 18 119/68 94 01/11/17 21:09 Nasal Cannula 2.00 01/11/17 20:00 98.4 95 18 132/71 95 01/11/17 19:41 94 Nasal Cannula 2.00 01/11/17 16:00 98.2 93 17 122/62 93 01/11/17 12:35 97 Nasal Cannula 3.00 01/11/17 12:00 96.9 90 18 152/70 94 -: 01/12/17 0400 Physical Exam General Appearance: No Acute Distress, Comfortable Eyes Eye Exam: Pupils Equal Throat Throat Exam: Oral Mucosa [place] & Moist Neck Neck Exam: Trachea Midline Pulmonary Resp Exam: No Distress, Rhonchi, Decreased Bases, Diminished Breath Sounds Cardiology CV Exam: Regular, Normal Sinus Rhythm Gastrointestinal/Abdomen GI Exam: Soft, Non-Tender, Bowel Sounds Present Extremeties Extremities Exam: No Edema Neurologic Neuro Exam: Alert, Awake Psychiatric Psych Exam: Appropriate Responses Assessment/Plan Assessment Summary: DOMENICA/Acute Renal Failure, Hypertension, CKD Stage III Problem List: (1) CLL (chronic lymphocytic leukemia) (2) Contusion of face (3) Fall (4) Breast CA (5) Pneumonia (6) DOMENICA (acute kidney injury) Plan Patient has been non oliguric. BP is stable. WBC are chronically elevated. Possibly has ATN or Interstitial Nephritis. Continue IVF and antibiotics. Started on HD. Patient has good urine out put. Creatinine still elevated. HD now, watch for renal recovery. Problem Qualifiers (1) Contusion of face: Qualified Code: S00.83XD - Contusion of face, subsequent encounter (2) Pneumonia: Qualified Code: J18.9 - Pneumonia of both lower lobes due to infectious organism Marysol Parry MD Jan 12, 2017 11:02
[2017-01-12 12:00] VITALS: BP 143/76; PULSE 98; RESP 16; TEMP 98.4; O2SAT 97
[2017-01-12] MEDS: SODIUM CHLOR 0.9% 1000 ML INJ 1,000 ML IV SCH (12:20)
[2017-01-12 14:00] VITALS: O2SAT 92
[2017-01-12] MEDS: ACETAMINOPHEN 325 MG TAB PO PRN (14:05)
[2017-01-12 16:00] VITALS: BP 143/73; PULSE 100; RESP 12; TEMP 97.2; O2SAT 99
--- NOTE | 2017-01-12 16:49 | HHI.PR ---
Subjective Remarks No new complaints. Objective Vitals Vital Signs Date Time Temp Pulse Resp B/P Pulse Ox O2 Delivery O2 Flow Rate FiO2 01/12/17 14:00 92 Nasal Cannula 2.00 01/12/17 12:00 98.4 98 16 143/76 97 01/12/17 08:00 97.4 97 20 148/71 93 01/12/17 00:00 97.8 88 18 119/68 94 01/11/17 21:09 Nasal Cannula 2.00 01/11/17 20:00 98.4 95 18 132/71 95 01/11/17 19:41 94 Nasal Cannula 2.00 01/11/17 01/11/17 01/12/17 15:00 23:00 07:00 Intake Total 1050 ml 990 ml 690 ml Output Total 400 ml Balance 650 ml 990 ml 690 ml Intake Oral 475 ml 480 ml 240 ml IV Total 575 ml 510 ml 450 ml Output Urine Total 400 ml # Voids 3 6 # Bowel Movements 2 2 Result Diagram: 01/12/17 0400 Imaging Last Impressions Catheter Placement X-Ray 12/30/16 0000 Signed Impressions: Service Date/Time: December 12:27 - CONCLUSION: Uncomplicated line placement as above. Steve Ponce Jr., MD Renal Ultrasound 12/27/16 0000 Signed Impressions: Service Date/Time: Tuesday, December 27, 2016 20:43 - CONCLUSION: 1. There is increased echogenicity of both kidneys. This suggests chronic medical renal disease. 2. No hydronephrosis. 3. Small benign left renal cyst. 4. Mild right perinephric edema. Osmin Amos MD Pelvis X-Ray 12/26/16 1343 Signed Impressions: Service Date/Time: Monday, December 26, 2016 13:56 - CONCLUSION: No acute disease. Dave Serna MD Head CT 12/26/16 1343 Signed Impressions: Service Date/Time: Monday, December 26, 2016 14:53 - CONCLUSION: No acute intracranial abnormality. Dave Ibanez MD Cervical Spine CT 12/26/16 1343 Signed Impressions: Service Date/Time: Monday, December 26, 2016 14:53 - CONCLUSION: Intact cervical spine. Degenerative changes as above. Dave Ibanez MD Maxillofacial CT 12/26/16 0000 Signed Impressions: Service Date/Time: Monday, December 26, 2016 14:53 - CONCLUSION: 1. No facial fracture. 2. Diffusely heterogeneous marrow. Please see above. Dave Ibanez MD Chest X-Ray 12/26/16 0000 Signed Impressions: Service Date/Time: Monday, December 26, 2016 14:51 - CONCLUSION: Mild, nonspecific consolidation of the left lung. Dave Ibanez MD Chest CT 12/26/16 0000 Signed Impressions: Service Date/Time: Monday, December 26, 2016 14:59 - CONCLUSION: 1. Nothing convincing for acute trauma to the chest. 2. Patchy infiltrates in both mid and lower lungs that are most likely pre-existing, infectious or inflammatory. 3. Small pericardial effusion also probably nonacute. 4. Upper limits of normal size mediastinal lymph nodes without anything clearly pathologic. 5. Left breast surgery. 6. Coronary artery calcification. Dave Ibanez MD Objective Remarks GENERAL: This is a well-nourished, well-developed patient, in no apparent distress. CARDIOVASCULAR: Regular rate and rhythm without murmurs, gallops, or rubs. RESPIRATORY: Clear to auscultation. Breath sounds equal bilaterally. No wheezes , rales, or rhonchi. GASTROINTESTINAL: Abdomen soft, non-tender, nondistended. Normal active bowel sounds MUSCULOSKELETAL: Extremities without clubbing, cyanosis, or edema. NEURO: Alert & Oriented x4 to person, place, time, situation. Moves all ext x4 A/P Problem List: (1) Fall Status: Acute Plan: - Pt is 86 yo admitted after a fall secondary to dizziness with LOC and sustained facial trauma/contusions - At admission pt noted to have DOMENICA, cough/chills. - CXR with chest infiltrates concerning for PNA, could consider radiation lung changes as pt s/p radiation for breast ca recently. - She has CLL and chronic leukocytosis. - Renal function again worsening - Case d/w Dr. Parry (01/10/17) He would prefer to give a few more HD treatments and follow response prior to making decision on chronic dialysis - Pt will need SNF at conclusion of this hospitalization -scd[facility]. kimberly mcguire. 01/12/17 - Creatinine 4.04 (01/12/17) - pt interviewed and examined - continue current treatment plan as outlined above. (2) DOMENICA (acute kidney injury) Status: Acute Plan: - comgmt with Nephrology - US kidneys, bladder, ureters (12/27/16) --> increased echogenicity of both kidneys c/w medical renal disease - Pt had VasCath placed (12/30/16) - undergoing HD m/w/f - Cr 4.46 (01/10/17) - Cr 3.45 (01/11/17) - see above (3) Hyperkalemia Status: Acute Plan: - see above (4) Hypocalcemia Status: Acute Plan: - improving - likely d/t acute illness & poor nutritional status - repleted 12/29 (5) Contusion of face Status: Acute Plan: - Secondary to fall, see above (6) Pneumonia Status: Acute Plan: - leukocytosis improved from admission, but pt has underlying CLL - Pt was treated with Rocephin and azithromycin (12/27/16 - 01/01/17) - Pt still requiring supplemental O2. - Incentive spirometer - Duonebs q6h while awake - Encourage ambulation and OOB - Blood Culture (12/26) with no growth to date (7) CLL (chronic lymphocytic leukemia) Status: Chronic Plan: - Follows with Dr. Wilson (8) Breast CA Status: Chronic Plan: - s/p lumpectomy and radiation. (9) Vaginal prolapse Status: Acute Plan: - f/u with obstetrics gynecology md outpt Problem Qualifiers (1) Contusion of face: Qualified Code: S00.83XD - Contusion of face, subsequent encounter (2) Pneumonia: Qualified Code: J18.9 - Pneumonia of both lower lobes due to infectious organism Thom Murillo DO Jan 12, 2017 16:49
[2017-01-12 20:00] VITALS: BP 162/77; PULSE 103; RESP 18; TEMP 99.1; O2SAT 94
[2017-01-12] MEDS: traZODone HCL 50 MG TAB PO SCH (21:44)
[2017-01-12] MEDS: ONDANSETRON HCL 4 MG/2 ML VIAL IV PUSH PRN (21:45)
[2017-01-12] MEDS: ZOLPIDEM TARTRATE 5 MG TAB PO PRN (21:45)
[2017-01-13] VITALS (7 sets, daily range): BP systolic 124–156; BP diastolic 63–77; PULSE 81–96; RESP 16–20; TEMP 97.7–98.9; O2SAT 92–99
[2017-01-13] MEDS: SODIUM CHLOR 0.9% 1000 ML INJ 1,000 ML IV SCH ×2 (02:39→14:28)
[2017-01-13 05:50] LABS: BICARBONATE 31.2 MEQ/L (21.0-32.0); MAGNESIUM 1.5 MG/DL (1.5-2.5); POTASSIUM 3.5 MEQ/L (3.5-5.1)
[2017-01-13] MEDS: amLODIPine BESYLATE 5 MG TAB PO SCH ×2 (08:48→20:42)
[2017-01-13] MEDS: ASPIRIN 81 MG CHEW TAB CHEW SCH (08:48)
[2017-01-13] MEDS: ATORVASTATIN 80 MG TAB PO SCH (08:48)
[2017-01-13] MEDS: ANASTROZOLE 1 MG TAB PO SCH (08:48)
[2017-01-13] MEDS: RESP: ALBUTEROL 2.5 MG/IPRATROPIUM 0.5 MG NEB (SCH) NEB ×3 (09:52→20:45)
--- NOTE | 2017-01-13 10:46 | HHI.NPPN ---
Subjective General Problems: Anemia Renal Failure: Chronic, Acute, Stage III History of Present Illness 86-year-old female with a past medical history of chronic lymphocytic leukemia, history of breast cancer, hypertension, hyperlipidemia, stage III chronic kidney disease who came to the hospital with complaint of a history of fall and cough for four days before admission. I was called to see the patient because of elevated BUN and creatinine. The patient has a history of chronic kidney disease and she has been following with me in the office. Her last creatinine was done. The baseline creatinine is around 1.0 to 1.1 and the GFR around 47 to 46 cm/minute. Additional Remarks Patient is alert, no SOB, eating better, not in distress. Review of Systems General Constitutional: Fatigue Respiratory Lungs: SOB, Cough, Sputum, Wheeze Cardiovascular Cardiac: ZELAYA Gastrointestinal Gastrointestinal: Nausea & Vomiting Objective Data Data 01/12/17 01/13/17 19:00 07:00 Intake Total 400 ml 1924 ml Output Total 3000 ml Balance -2600 ml 1924 ml Intake Oral 400 ml 811 ml IV Total 1113 ml Hemodialysis 3000 ml # Voids 3 8 # Bowel Movements 2 2 Vital Signs Date Time Temp Pulse Resp B/P Pulse Ox O2 Delivery O2 Flow Rate FiO2 01/13/17 09:53 99 Nasal Cannula 2.00 01/13/17 08:47 Nasal Cannula 2.00 01/13/17 08:00 98.8 96 16 142/63 96 01/13/17 00:00 98.9 81 17 140/71 94 01/12/17 21:45 Nasal Cannula 2.00 01/12/17 20:00 99.1 103 18 162/77 94 01/12/17 16:00 97.2 100 12 143/73 99 01/12/17 14:00 92 Nasal Cannula 2.00 01/12/17 12:00 98.4 98 16 143/76 97 -: 01/13/17 0420 Physical Exam General Appearance: No Acute Distress, Comfortable Eyes Eye Exam: Pupils Equal Throat Throat Exam: Oral Mucosa [place] & Moist Neck Neck Exam: Trachea Midline Pulmonary Resp Exam: No Distress, Rhonchi, Decreased Bases, Diminished Breath Sounds Cardiology CV Exam: Regular, Normal Sinus Rhythm Gastrointestinal/Abdomen GI Exam: Soft, Non-Tender, Bowel Sounds Present Extremeties Extremities Exam: No Edema Neurologic Neuro Exam: Alert, Awake Psychiatric Psych Exam: Appropriate Responses Assessment/Plan Assessment Summary: DOMENICA/Acute Renal Failure, Hypertension, CKD Stage III Problem List: (1) CLL (chronic lymphocytic leukemia) (2) Contusion of face (3) Fall (4) Breast CA (5) Pneumonia (6) DOMENICA (acute kidney injury) Plan Patient has been non oliguric. BP is stable. WBC are chronically elevated. Possibly has ATN or Interstitial Nephritis. Continue IVF and antibiotics. Started on HD. Patient has good urine out put. Creatinine still elevated. HD to continue MWF. Follow urine out put and BMP. Problem Qualifiers (1) Contusion of face: Qualified Code: S00.83XD - Contusion of face, subsequent encounter (2) Pneumonia: Qualified Code: J18.9 - Pneumonia of both lower lobes due to infectious organism Marysol Parry MD Jan 13, 2017 10:46
--- NOTE | 2017-01-13 14:11 | HHI.PR ---
Subjective Remarks No new complaints. Objective Vitals Vital Signs Date Time Temp Pulse Resp B/P Pulse Ox O2 Delivery O2 Flow Rate FiO2 01/13/17 12:00 97.9 93 16 134/65 94 01/13/17 09:53 99 Nasal Cannula 2.00 01/13/17 08:47 Nasal Cannula 2.00 01/13/17 08:00 98.8 96 16 142/63 96 01/13/17 00:00 98.9 81 17 140/71 94 01/12/17 21:45 Nasal Cannula 2.00 01/12/17 20:00 99.1 103 18 162/77 94 01/12/17 16:00 97.2 100 12 143/73 99 01/12/17 01/12/17 01/13/17 14:59 22:59 06:59 Intake Total 400 ml 1093 ml 831 ml Output Total 3000 ml Balance -2600 ml 1093 ml 831 ml Intake Oral 400 ml 571 ml 240 ml IV Total 522 ml 591 ml Hemodialysis 3000 ml # Voids 3 5 3 # Bowel Movements 2 1 1 Result Diagram: 01/13/17 0420 Imaging Last Impressions Catheter Placement X-Ray 12/30/16 0000 Signed Impressions: Service Date/Time: December 12:27 - CONCLUSION: Uncomplicated line placement as above. Steve Ponce Jr., MD Renal Ultrasound 12/27/16 0000 Signed Impressions: Service Date/Time: Tuesday, December 27, 2016 20:43 - CONCLUSION: 1. There is increased echogenicity of both kidneys. This suggests chronic medical renal disease. 2. No hydronephrosis. 3. Small benign left renal cyst. 4. Mild right perinephric edema. Osmin Amos MD Pelvis X-Ray 12/26/16 1343 Signed Impressions: Service Date/Time: Monday, December 26, 2016 13:56 - CONCLUSION: No acute disease. Dave Serna MD Head CT 12/26/16 1343 Signed Impressions: Service Date/Time: Monday, December 26, 2016 14:53 - CONCLUSION: No acute intracranial abnormality. Dave Ibanez MD Cervical Spine CT 12/26/16 1343 Signed Impressions: Service Date/Time: Monday, December 26, 2016 14:53 - CONCLUSION: Intact cervical spine. Degenerative changes as above. Dave Ibanez MD Maxillofacial CT 12/26/16 0000 Signed Impressions: Service Date/Time: Monday, December 26, 2016 14:53 - CONCLUSION: 1. No facial fracture. 2. Diffusely heterogeneous marrow. Please see above. Dave Ibanez MD Chest X-Ray 12/26/16 0000 Signed Impressions: Service Date/Time: Monday, December 26, 2016 14:51 - CONCLUSION: Mild, nonspecific consolidation of the left lung. Dave Ibanez MD Chest CT 12/26/16 0000 Signed Impressions: Service Date/Time: Monday, December 26, 2016 14:59 - CONCLUSION: 1. Nothing convincing for acute trauma to the chest. 2. Patchy infiltrates in both mid and lower lungs that are most likely pre-existing, infectious or inflammatory. 3. Small pericardial effusion also probably nonacute. 4. Upper limits of normal size mediastinal lymph nodes without anything clearly pathologic. 5. Left breast surgery. 6. Coronary artery calcification. Dave Ibanez MD Objective Remarks GENERAL: This is a well-nourished, well-developed patient, in no apparent distress. CARDIOVASCULAR: Regular rate and rhythm without murmurs, gallops, or rubs. RESPIRATORY: Clear to auscultation. Breath sounds equal bilaterally. No wheezes , rales, or rhonchi. GASTROINTESTINAL: Abdomen soft, non-tender, nondistended. Normal active bowel sounds MUSCULOSKELETAL: Extremities without clubbing, cyanosis, or edema. NEURO: Alert & Oriented x4 to person, place, time, situation. Moves all ext x4 A/P Problem List: (1) Fall Status: Acute Plan: - Pt is 86 yo admitted after a fall secondary to dizziness with LOC and sustained facial trauma/contusions - At admission pt noted to have DOMENICA, cough/chills. - CXR with chest infiltrates concerning for PNA, could consider radiation lung changes as pt s/p radiation for breast ca recently. - She has CLL and chronic leukocytosis. - Renal function again worsening - Case d/w Dr. Parry (01/10/17) He would prefer to give a few more HD treatments and follow response prior to making decision on chronic dialysis - Pt will need SNF at conclusion of this hospitalization -scd's. kimberly mcguire. 01/13/17 - Creatinine 4.04 (01/12/17), Cr 3.07 - pt interviewed and examined - continue current treatment plan as outlined above. - Will discuss case further with Nephrology 01/14/17 (2) DOMENICA (acute kidney injury) Status: Acute Plan: - comgmt with Nephrology - US kidneys, bladder, ureters (12/27/16) --> increased echogenicity of both kidneys c/w medical renal disease - Pt had VasCath placed (12/30/16) - undergoing HD m/w/f - Cr 4.46 (01/10/17) - Cr 3.45 (01/11/17) - see above (3) Hyperkalemia Status: Acute Plan: - see above (4) Hypocalcemia Status: Acute Plan: - improving - likely d/t acute illness & poor nutritional status - repleted 12/29 (5) Contusion of face Status: Acute Plan: - Secondary to fall, see above (6) Pneumonia Status: Acute Plan: - leukocytosis improved from admission, but pt has underlying CLL - Pt was treated with Rocephin and azithromycin (12/27/16 - 01/01/17) - Pt still requiring supplemental O2. - Incentive spirometer - Duonebs q6h while awake - Encourage ambulation and OOB - Blood Culture (12/26) with no growth to date (7) CLL (chronic lymphocytic leukemia) Status: Chronic Plan: - Follows with Dr. Wilson (8) Breast CA Status: Chronic Plan: - s/p lumpectomy and radiation. (9) Vaginal prolapse Status: Acute Plan: - f/u with gynaecological oncologist outpt Problem Qualifiers (1) Contusion of face: Qualified Code: S00.83XD - Contusion of face, subsequent encounter (2) Pneumonia: Qualified Code: J18.9 - Pneumonia of both lower lobes due to infectious organism Thom Murillo DO Jan 13, 2017 14:11
[2017-01-13] MEDS: ONDANSETRON HCL 4 MG/2 ML VIAL IV PUSH PRN (20:39)
[2017-01-13] MEDS: traZODone HCL 50 MG TAB PO SCH (20:42)
[2017-01-13] MEDS: ZOLPIDEM TARTRATE 5 MG TAB PO PRN (21:57)
[2017-01-14] VITALS (7 sets, daily range): BP systolic 118–148; BP diastolic 64–72; PULSE 86–93; RESP 16–18; TEMP 97.1–98.4; O2SAT 93–97
[2017-01-14] MEDS: SODIUM CHLOR 0.9% 1000 ML INJ 1,000 ML IV SCH (04:58)
[2017-01-14 05:06] LABS: BICARBONATE 29.5 MEQ/L (21.0-32.0); MAGNESIUM 1.5 MG/DL (1.5-2.5); POTASSIUM 3.4 MEQ/L (3.5-5.1)
[2017-01-14] MEDS: RESP: ALBUTEROL 2.5 MG/IPRATROPIUM 0.5 MG NEB (SCH) NEB ×3 (07:34→18:58)
[2017-01-14] MEDS: amLODIPine BESYLATE 5 MG TAB PO SCH ×3 (09:00→22:24)
[2017-01-14] MEDS: ANASTROZOLE 1 MG TAB PO SCH ×2 (09:00→13:19)
[2017-01-14] MEDS: ATORVASTATIN 80 MG TAB PO SCH ×2 (09:00→13:19)
[2017-01-14] MEDS: ASPIRIN 81 MG CHEW TAB CHEW SCH ×2 (09:00→13:19)
[2017-01-14] MEDS: GENTAMICIN SULFATE (DIALYSIS USE ONLY) 20 MG/2 ML VIAL IV PRN (09:34)
[2017-01-14] MEDS: HEPARIN SODIUM - IV 10,000 UNITS/10 ML VIAL PRN (09:34)
[2017-01-14] MEDS: SODIUM CHLOR 0.9% 1000 ML INJ 1,000 ML IV PRN (09:34)
--- NOTE | 2017-01-14 10:13 | HHI.NPPN ---
Subjective General Problems: Anemia Renal Failure: Chronic, Acute, Stage III History of Present Illness 86-year-old female with a past medical history of chronic lymphocytic leukemia, history of breast cancer, hypertension, hyperlipidemia, stage III chronic kidney disease who came to the hospital with complaint of a history of fall and cough for four days before admission. I was called to see the patient because of elevated BUN and creatinine. The patient has a history of chronic kidney disease and she has been following with me in the office. Her last creatinine was done. The baseline creatinine is around 1.0 to 1.1 and the GFR around 47 to 46 cm/minute. Additional Remarks Patient is alert, no SOB, has nausea, urine out put is better, now on HD. Review of Systems General Constitutional: Fatigue Respiratory Lungs: SOB, Cough, Sputum, Wheeze Cardiovascular Cardiac: ZELAYA Gastrointestinal Gastrointestinal: Nausea & Vomiting Objective Data Data 01/13/17 01/14/17 19:00 07:00 Intake Total 932 ml 1723 ml Output Total 400 ml Balance 932 ml 1323 ml Intake Oral 360 ml 600 ml IV Total 572 ml 1123 ml Output Urine Total 400 ml # Voids 6 4 # Bowel Movements 2 2 Vital Signs Date Time Temp Pulse Resp B/P Pulse Ox O2 Delivery O2 Flow Rate FiO2 01/14/17 08:00 97.1 92 16 148/70 94 01/14/17 07:35 94 Nasal Cannula 2.00 01/14/17 00:00 97.6 86 18 118/64 93 01/13/17 21:16 94 Nasal Cannula 2.00 01/13/17 20:45 Nasal Cannula 2.00 01/13/17 20:00 97.7 89 20 124/67 92 01/13/17 16:00 97.7 89 17 156/77 94 01/13/17 12:00 97.9 93 16 134/65 94 -: 01/14/17 0413 Physical Exam General Appearance: No Acute Distress, Comfortable Eyes Eye Exam: Pupils Equal Throat Throat Exam: Oral Mucosa [place] & Moist Neck Neck Exam: Trachea Midline Pulmonary Resp Exam: No Distress, Rhonchi, Decreased Bases, Diminished Breath Sounds Cardiology CV Exam: Regular, Normal Sinus Rhythm Gastrointestinal/Abdomen GI Exam: Soft, Non-Tender, Bowel Sounds Present Extremeties Extremities Exam: No Edema Neurologic Neuro Exam: Alert, Awake Psychiatric Psych Exam: Appropriate Responses Assessment/Plan Assessment Summary: DOMENICA/Acute Renal Failure, Hypertension, CKD Stage III Problem List: (1) CLL (chronic lymphocytic leukemia) (2) Contusion of face (3) Fall (4) Breast CA (5) Pneumonia (6) DOMENICA (acute kidney injury) Plan Patient has been non oliguric. BP is stable. WBC are chronically elevated. Possibly has ATN or Interstitial Nephritis. Continue IVF and antibiotics. Started on HD. Patient has good urine out put. Creatinine still elevated. HD to continue MWF. HD now, will watch for renal recovery over the weekend. Problem Qualifiers (1) Contusion of face: Qualified Code: S00.83XD - Contusion of face, subsequent encounter (2) Pneumonia: Qualified Code: J18.9 - Pneumonia of both lower lobes due to infectious organism Marysol Parry MD Jan 14, 2017 10:13
--- NOTE | 2017-01-14 17:13 | HHI.PR ---
Subjective Remarks No new complaints. Objective Vitals Vital Signs Date Time Temp Pulse Resp B/P Pulse Ox O2 Delivery O2 Flow Rate FiO2 01/14/17 16:00 97.7 93 16 146/68 97 01/14/17 13:00 98.4 89 17 146/72 96 01/14/17 08:45 Nasal Cannula 2.00 01/14/17 08:00 97.1 92 16 148/70 94 01/14/17 07:35 94 Nasal Cannula 2.00 01/14/17 00:00 97.6 86 18 118/64 93 01/13/17 21:16 94 Nasal Cannula 2.00 01/13/17 20:45 Nasal Cannula 2.00 01/13/17 20:00 97.7 89 20 124/67 92 01/13/17 01/13/17 01/14/17 15:00 23:00 07:00 Intake Total 932 ml 962 ml 761 ml Output Total 400 ml Balance 932 ml 962 ml 361 ml Intake Oral 360 ml 480 ml 120 ml IV Total 572 ml 482 ml 641 ml Output Urine Total 400 ml # Voids 6 4 # Bowel Movements 2 1 1 Result Diagram: 01/14/17 0413 Imaging Last Impressions Catheter Placement X-Ray 12/30/16 0000 Signed Impressions: Service Date/Time: December 12:27 - CONCLUSION: Uncomplicated line placement as above. Steve Ponce Jr., MD Renal Ultrasound 12/27/16 0000 Signed Impressions: Service Date/Time: Tuesday, December 27, 2016 20:43 - CONCLUSION: 1. There is increased echogenicity of both kidneys. This suggests chronic medical renal disease. 2. No hydronephrosis. 3. Small benign left renal cyst. 4. Mild right perinephric edema. Osmin Amos MD Pelvis X-Ray 12/26/16 134 Signed Impressions: Service Date/Time: Monday, December 26, 2016 13:56 - CONCLUSION: No acute disease. Dave Serna MD Head CT 12/26/16 1343 Signed Impressions: Service Date/Time: Monday, December 26, 2016 14:53 - CONCLUSION: No acute intracranial abnormality. Dave Ibanez MD Cervical Spine CT 12/26/16 134 Signed Impressions: Service Date/Time: Monday, December 26, 2016 14:53 - CONCLUSION: Intact cervical spine. Degenerative changes as above. Dave Ibanez MD Maxillofacial CT 12/26/16 0000 Signed Impressions: Service Date/Time: Monday, December 26, 2016 14:53 - CONCLUSION: 1. No facial fracture. 2. Diffusely heterogeneous marrow. Please see above. Dave Ibanez MD Chest X-Ray 12/26/16 0000 Signed Impressions: Service Date/Time: Monday, December 26, 2016 14:51 - CONCLUSION: Mild, nonspecific consolidation of the left lung. Dave Ibanez MD Chest CT 12/26/16 0000 Signed Impressions: Service Date/Time: Monday, December 26, 2016 14:59 - CONCLUSION: 1. Nothing convincing for acute trauma to the chest. 2. Patchy infiltrates in both mid and lower lungs that are most likely pre-existing, infectious or inflammatory. 3. Small pericardial effusion also probably nonacute. 4. Upper limits of normal size mediastinal lymph nodes without anything clearly pathologic. 5. Left breast surgery. 6. Coronary artery calcification. Dave Ibanez MD Objective Remarks GENERAL: This is a well-nourished, well-developed patient, in no apparent distress. CARDIOVASCULAR: Regular rate and rhythm without murmurs, gallops, or rubs. RESPIRATORY: Clear to auscultation. Breath sounds equal bilaterally. No wheezes , rales, or rhonchi. GASTROINTESTINAL: Abdomen soft, non-tender, nondistended. Normal active bowel sounds MUSCULOSKELETAL: Extremities without clubbing, cyanosis, or edema. NEURO: Alert & Oriented x4 to person, place, time, situation. Moves all ext x4 A/P Problem List: (1) Fall Status: Acute Plan: - Pt is 86 yo admitted after a fall secondary to dizziness with LOC and sustained facial trauma/contusions - At admission pt noted to have DOMENICA, cough/chills. - CXR with chest infiltrates concerning for PNA, could consider radiation lung changes as pt s/p radiation for breast ca recently. - She has CLL and chronic leukocytosis. - Renal function again worsening - Case d/w Dr. Parry (01/10/17) He would prefer to give a few more HD treatments and follow response prior to making decision on chronic dialysis - Pt will need SNF at conclusion of this hospitalization -scd's. kimberly mcguire. 01/13/17 - Creatinine 4.04 (01/12/17), Cr 3.07 (01/13/17), Cr 3.86 (01/14/17) - pt interviewed and examined - continue current treatment plan as outlined above. - nephrology wants to observe pt over weekend - will discuss further with Nephrology 01/17/17 (2) DOMENICA (acute kidney injury) Status: Acute Plan: - comgmt with Nephrology - US kidneys, bladder, ureters (12/27/16) --> increased echogenicity of both kidneys c/w medical renal disease - Pt had VasCath placed (12/30/16) - undergoing HD m/w/f - Cr 4.46 (01/10/17) - Cr 3.45 (01/11/17) - see above (3) Hyperkalemia Status: Acute Plan: - see above (4) Hypocalcemia Status: Acute Plan: - improving - likely d/t acute illness & poor nutritional status - repleted 12/29 (5) Contusion of face Status: Acute Plan: - Secondary to fall, see above (6) Pneumonia Status: Acute Plan: - leukocytosis improved from admission, but pt has underlying CLL - Pt was treated with Rocephin and azithromycin (12/27/16 - 01/01/17) - Pt still requiring supplemental O2. - Incentive spirometer - Duonebs q6h while awake - Encourage ambulation and OOB - Blood Culture (12/26) with no growth to date (7) CLL (chronic lymphocytic leukemia) Status: Chronic Plan: - Follows with Dr. Wilson (8) Breast CA Status: Chronic Plan: - s/p lumpectomy and radiation. (9) Vaginal prolapse Status: Acute Plan: - f/u with rn or lpn outpt Problem Qualifiers (1) Contusion of face: Qualified Code: S00.83XD - Contusion of face, subsequent encounter (2) Pneumonia: Qualified Code: J18.9 - Pneumonia of both lower lobes due to infectious organism Thom Murillo DO Jan 14, 2017 17:13
[2017-01-14] MEDS: traZODone HCL 50 MG TAB PO SCH (22:25)
[2017-01-15] VITALS (8 sets, daily range): BP systolic 127–139; BP diastolic 63–72; PULSE 73–88; RESP 16–18; TEMP 96.5–98.5; O2SAT 93–97
[2017-01-15] MEDS: RESP: ALBUTEROL 2.5 MG/IPRATROPIUM 0.5 MG NEB (SCH) NEB ×3 (08:05→19:53)
[2017-01-15] MEDS: amLODIPine BESYLATE 5 MG TAB PO SCH ×2 (09:37→20:50)
[2017-01-15] MEDS: ANASTROZOLE 1 MG TAB PO SCH (09:37)
[2017-01-15] MEDS: ATORVASTATIN 80 MG TAB PO SCH (09:37)
[2017-01-15] MEDS: ASPIRIN 81 MG CHEW TAB CHEW SCH (09:37)
--- NOTE | 2017-01-15 11:49 | HHI.NPPN ---
Subjective General Problems: Anemia Renal Failure: Chronic, Acute, Stage III History of Present Illness 86-year-old female with a past medical history of chronic lymphocytic leukemia, history of breast cancer, hypertension, hyperlipidemia, stage III chronic kidney disease who came to the hospital with complaint of a history of fall and cough for four days before admission. I was called to see the patient because of elevated BUN and creatinine. The patient has a history of chronic kidney disease and she has been following with me in the office. Her last creatinine was done. The baseline creatinine is around 1.0 to 1.1 and the GFR around 47 to 46 cm/minute. Additional Remarks Patient is alert, no SOB, has nausea, and has some loose BM. Review of Systems General Constitutional: Fatigue Respiratory Lungs: SOB, Cough, Sputum, Wheeze Cardiovascular Cardiac: ZELAYA Gastrointestinal Gastrointestinal: Nausea & Vomiting Objective Data Data 01/14/17 01/15/17 19:00 07:00 Intake Total 1007 ml 480 ml Output Total 3000 ml 250 ml Balance -1993 ml 230 ml Intake Oral 720 ml 480 ml IV Total 287 ml 0 ml Output Urine Total 250 ml Hemodialysis 3000 ml # Voids 2 # Bowel Movements 2 6 Vital Signs Date Time Temp Pulse Resp B/P Pulse Ox O2 Delivery O2 Flow Rate FiO2 01/15/17 09:44 Nasal Cannula 2.00 Humidified 01/15/17 08:06 93 Nasal Cannula 2.00 01/15/17 08:00 97.4 73 17 139/69 96 01/15/17 00:00 98.4 88 18 127/67 95 01/14/17 22:23 Nasal Cannula 2.00 01/14/17 20:00 98.4 92 18 146/67 95 01/14/17 18:58 96 Nasal Cannula 2.00 01/14/17 16:00 97.7 93 16 146/68 97 01/14/17 13:00 98.4 89 17 146/72 96 -: 01/14/17 0413 Physical Exam General Appearance: No Acute Distress, Comfortable Eyes Eye Exam: Pupils Equal Throat Throat Exam: Oral Mucosa [place] & Moist Neck Neck Exam: Trachea Midline Pulmonary Resp Exam: No Distress, Rhonchi, Decreased Bases, Diminished Breath Sounds Cardiology CV Exam: Regular, Normal Sinus Rhythm Gastrointestinal/Abdomen GI Exam: Soft, Non-Tender, Bowel Sounds Present Extremeties Extremities Exam: No Edema Neurologic Neuro Exam: Alert, Awake Psychiatric Psych Exam: Appropriate Responses Assessment/Plan Assessment Summary: DOMENICA/Acute Renal Failure, Hypertension, CKD Stage III Problem List: (1) CLL (chronic lymphocytic leukemia) (2) Contusion of face (3) Fall (4) Breast CA (5) Pneumonia (6) DOMENICA (acute kidney injury) Plan Patient has been non oliguric. BP is stable. WBC are chronically elevated. Possibly has ATN or Interstitial Nephritis. Continue IVF and antibiotics. Started on HD. Patient has good urine out put. HD now, will watch for renal recovery over the weekend. HD done yesterday. Follow BMP in AM. Problem Qualifiers (1) Contusion of face: Qualified Code: S00.83XD - Contusion of face, subsequent encounter (2) Pneumonia: Qualified Code: J18.9 - Pneumonia of both lower lobes due to infectious organism Marysol Parry MD Jan 15, 2017 11:49
--- NOTE | 2017-01-15 14:48 | HHI.PR ---
Subjective Remarks No new complaints. Objective Vitals Vital Signs Date Time Temp Pulse Resp B/P Pulse Ox O2 Delivery O2 Flow Rate FiO2 01/15/17 12:00 98.5 87 17 136/66 96 01/15/17 09:44 Nasal Cannula 2.00 Humidified 01/15/17 08:06 93 Nasal Cannula 2.00 01/15/17 08:00 97.4 73 17 139/69 96 01/15/17 00:00 98.4 88 18 127/67 95 01/14/17 22:23 Nasal Cannula 2.00 01/14/17 20:00 98.4 92 18 146/67 95 01/14/17 18:58 96 Nasal Cannula 2.00 01/14/17 16:00 97.7 93 16 146/68 97 01/14/17 01/14/17 01/15/17 15:00 23:00 07:00 Intake Total 1007 ml 480 ml 0 ml Output Total 3000 ml 250 ml Balance -1993 ml 230 ml 0 ml Intake Oral 720 ml 480 ml IV Total 287 ml 0 ml 0 ml Output Urine Total 250 ml Hemodialysis 3000 ml # Voids 2 # Bowel Movements 2 6 Result Diagram: 01/14/17 0413 Imaging Last Impressions Catheter Placement X-Ray 12/30/16 0000 Signed Impressions: Service Date/Time: December 12:27 - CONCLUSION: Uncomplicated line placement as above. Steve Ponce Jr., MD Renal Ultrasound 12/27/16 0000 Signed Impressions: Service Date/Time: Tuesday, December 27, 2016 20:43 - CONCLUSION: 1. There is increased echogenicity of both kidneys. This suggests chronic medical renal disease. 2. No hydronephrosis. 3. Small benign left renal cyst. 4. Mild right perinephric edema. Osmin Amos MD Pelvis X-Ray 12/26/16 1343 Signed Impressions: Service Date/Time: Monday, December 26, 2016 13:56 - CONCLUSION: No acute disease. Dave Serna MD Head CT 12/26/16 1343 Signed Impressions: Service Date/Time: Monday, December 26, 2016 14:53 - CONCLUSION: No acute intracranial abnormality. Dave Ibanez MD Cervical Spine CT 12/26/16 1343 Signed Impressions: Service Date/Time: Monday, December 26, 2016 14:53 - CONCLUSION: Intact cervical spine. Degenerative changes as above. Dave Ibanez MD Maxillofacial CT 12/26/16 0000 Signed Impressions: Service Date/Time: Monday, December 26, 2016 14:53 - CONCLUSION: 1. No facial fracture. 2. Diffusely heterogeneous marrow. Please see above. Dave Ibanez MD Chest X-Ray 12/26/16 0000 Signed Impressions: Service Date/Time: Monday, December 26, 2016 14:51 - CONCLUSION: Mild, nonspecific consolidation of the left lung. Dave Ibanez MD Chest CT 12/26/16 0000 Signed Impressions: Service Date/Time: Monday, December 26, 2016 14:59 - CONCLUSION: 1. Nothing convincing for acute trauma to the chest. 2. Patchy infiltrates in both mid and lower lungs that are most likely pre-existing, infectious or inflammatory. 3. Small pericardial effusion also probably nonacute. 4. Upper limits of normal size mediastinal lymph nodes without anything clearly pathologic. 5. Left breast surgery. 6. Coronary artery calcification. Dave Ibanez MD Objective Remarks GENERAL: This is a well-nourished, well-developed patient, in no apparent distress. CARDIOVASCULAR: Regular rate and rhythm without murmurs, gallops, or rubs. RESPIRATORY: Clear to auscultation. Breath sounds equal bilaterally. No wheezes , rales, or rhonchi. GASTROINTESTINAL: Abdomen soft, non-tender, nondistended. Normal active bowel sounds MUSCULOSKELETAL: Extremities without clubbing, cyanosis, or edema. NEURO: Alert & Oriented x4 to person, place, time, situation. Moves all ext x4 A/P Problem List: (1) Fall Status: Acute Plan: - Pt is 86 yo admitted after a fall secondary to dizziness with LOC and sustained facial trauma/contusions - At admission pt noted to have DOMENICA, cough/chills. - CXR with chest infiltrates concerning for PNA, could consider radiation lung changes as pt s/p radiation for breast ca recently. - She has CLL and chronic leukocytosis. - Renal function again worsening - Case d/w Dr. Parry (01/10/17) He would prefer to give a few more HD treatments and follow response prior to making decision on chronic dialysis - Pt will need SNF at conclusion of this hospitalization -scd's. [facility] hose. 01/15/17 - Creatinine 4.04 (01/12/17), Cr 3.07 (01/13/17), Cr 3.86 (01/14/17) - pt interviewed and examined - continue current treatment plan as outlined above. - nephrology wants to observe pt over weekend - will discuss further with Nephrology 01/17/17 - repeat BMP in AM 01/16/17 (2) DOMENICA (acute kidney injury) Status: Acute Plan: - comgmt with Nephrology - US kidneys, bladder, ureters (12/27/16) --> increased echogenicity of both kidneys c/w medical renal disease - Pt had VasCath placed (12/30/16) - undergoing HD m/w/f - Cr 4.46 (01/10/17) - Cr 3.45 (01/11/17) - see above (3) Hyperkalemia Status: Acute Plan: - see above (4) Hypocalcemia Status: Acute Plan: - improving - likely d/t acute illness & poor nutritional status - repleted 12/29 (5) Contusion of face Status: Acute Plan: - Secondary to fall, see above (6) Pneumonia Status: Acute Plan: - leukocytosis improved from admission, but pt has underlying CLL - Pt was treated with Rocephin and azithromycin (12/27/16 - 01/01/17) - Pt still requiring supplemental O2. - Incentive spirometer - Duonebs q6h while awake - Encourage ambulation and OOB - Blood Culture (12/26) with no growth to date (7) CLL (chronic lymphocytic leukemia) Status: Chronic Plan: - Follows with Dr. Wilson (8) Breast CA Status: Chronic Plan: - s/p lumpectomy and radiation. 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
[2017-01-15] MEDS: traZODone HCL 50 MG TAB PO SCH (20:51)
[2017-01-16 05:45] LABS: BICARBONATE 30.6 MEQ/L (21.0-32.0); POTASSIUM 3.4 MEQ/L (3.5-5.1)
[2017-01-16] MEDS: RESP: ALBUTEROL 2.5 MG/IPRATROPIUM 0.5 MG NEB (SCH) NEB (07:35)
[2017-01-16 07:36] VITALS: O2SAT 95
[2017-01-16 08:00] VITALS: BP_SYST 115; BP_SYST 133; BP_DIAS 56; BP_DIAS 62; PULSE 84; PULSE 90; RESP 16; RESP 17; TEMP 97.5; TEMP 99.5; O2SAT 94; O2SAT 96
[2017-01-16] MEDS: ONDANSETRON HCL 4 MG/2 ML VIAL IV PUSH PRN (08:21)
[2017-01-16] MEDS: ANASTROZOLE 1 MG TAB PO SCH (08:22)
[2017-01-16] MEDS: amLODIPine BESYLATE 5 MG TAB PO SCH ×2 (08:22→19:39)
[2017-01-16] MEDS: ATORVASTATIN 80 MG TAB PO SCH (08:22)
[2017-01-16] MEDS: ASPIRIN 81 MG CHEW TAB CHEW SCH (08:22)
--- NOTE | 2017-01-16 11:32 | HHI.NPPN ---
Subjective General Problems: Anemia Renal Failure: Chronic, Acute, Stage III History of Present Illness 86-year-old female with a past medical history of chronic lymphocytic leukemia, history of breast cancer, hypertension, hyperlipidemia, stage III chronic kidney disease who came to the hospital with complaint of a history of fall and cough for four days before admission. I was called to see the patient because of elevated BUN and creatinine. The patient has a history of chronic kidney disease and she has been following with me in the office. Her last creatinine was done. The baseline creatinine is around 1.0 to 1.1 and the GFR around 47 to 46 cm/minute. Additional Remarks Patient is alert, eating well, no SOB, now on room air. Review of Systems General Constitutional: Fatigue Respiratory Lungs: SOB, Cough, Sputum, Wheeze Cardiovascular Cardiac: ZELAYA Gastrointestinal Gastrointestinal: Nausea & Vomiting Objective Data Data 01/15/17 01/16/17 19:00 07:00 Intake Total 120 ml 640 ml Output Total 175 ml 880 ml Balance -55 ml -240 ml Intake Oral 120 ml 640 ml IV Total 0 ml Output Urine Total 175 ml 880 ml # Bowel Movements 0 1 Vital Signs Date Time Temp Pulse Resp B/P Pulse Ox O2 Delivery O2 Flow Rate FiO2 01/16/17 08:10 98 Room Air 01/16/17 08:00 99.5 90 16 133/62 96 01/16/17 07:36 95 21 01/15/17 23:53 98.3 79 16 131/63 97 01/15/17 20:40 Nasal Cannula 2.00 01/15/17 20:10 97.6 80 18 132/65 96 01/15/17 19:55 97 Nasal Cannula 2.00 01/15/17 16:00 96.5 81 18 134/72 97 01/15/17 12:00 98.5 87 17 136/66 96 -: 01/16/17 0442 Physical Exam General Appearance: No Acute Distress, Comfortable Eyes Eye Exam: Pupils Equal Throat Throat Exam: Oral Mucosa Intercourse & Moist Neck Neck Exam: Trachea Midline Pulmonary Resp Exam: No Distress, Rhonchi, Decreased Bases, Diminished Breath Sounds Cardiology CV Exam: Regular, Normal Sinus Rhythm Gastrointestinal/Abdomen GI Exam: Soft, Non-Tender, Bowel Sounds Present Extremeties Extremities Exam: No Edema Neurologic Neuro Exam: Alert, Awake Psychiatric Psych Exam: Appropriate Responses Assessment/Plan Assessment Summary: DOMENICA/Acute Renal Failure, Hypertension, CKD Stage III Problem List: (1) CLL (chronic lymphocytic leukemia) (2) Contusion of face (3) Fall (4) Breast CA (5) Pneumonia (6) DOMENICA (acute kidney injury) Plan Patient has been non oliguric. BP is stable. WBC are chronically elevated. Possibly has ATN or Interstitial Nephritis. Continue IVF and antibiotics. Started on HD. Patient has good urine out put. HD done on Tuesday. Still has elevated Creatinine. Check BMP in AM. If remain elevated, will start working on getting out patient HD arrangement. Problem Qualifiers (1) Contusion of face: Qualified Code: S00.83XD - Contusion of face, subsequent encounter (2) Pneumonia: Qualified Code: J18.9 - Pneumonia of both lower lobes due to infectious organism Marysol Parry MD Jan 16, 2017 11:32
[2017-01-16 12:00] VITALS: BP 115/56; PULSE 84; RESP 17; TEMP 97.5; O2SAT 94
--- NOTE | 2017-01-16 14:59 | HHI.PR ---
Subjective Remarks No new complaints. Objective Vitals Vital Signs Date Time Temp Pulse Resp B/P Pulse Ox O2 Delivery O2 Flow Rate FiO2 01/16/17 12:00 97.5 84 17 115/56 94 01/16/17 08:10 98 Room Air 01/16/17 08:00 99.5 90 16 133/62 96 01/16/17 08:00 97.5 84 17 115/56 94 01/16/17 07:36 95 21 01/15/17 23:53 98.3 79 16 131/63 97 01/15/17 20:40 Nasal Cannula 2.00 01/15/17 20:10 97.6 80 18 132/65 96 01/15/17 19:55 97 Nasal Cannula 2.00 01/15/17 16:00 96.5 81 18 134/72 97 01/15/17 01/15/17 01/16/17 15:00 23:00 07:00 Intake Total 120 ml 360 ml 280 ml Output Total 175 ml 480 ml 400 ml Balance -55 ml -120 ml -120 ml Intake Oral 120 ml 360 ml 280 ml IV Total 0 ml 0 ml Output Urine Total 175 ml 480 ml 400 ml # Bowel Movements 0 1 0 Result Diagram: 01/16/17 0442 Imaging Last Impressions Catheter Placement X-Ray 12/30/16 0000 Signed Impressions: Service Date/Time: December 12:27 - CONCLUSION: Uncomplicated line placement as above. Steve Ponce Jr., MD Renal Ultrasound 12/27/16 0000 Signed Impressions: Service Date/Time: Tuesday, December 27, 2016 20:43 - CONCLUSION: 1. There is increased echogenicity of both kidneys. This suggests chronic medical renal disease. 2. No hydronephrosis. 3. Small benign left renal cyst. 4. Mild right perinephric edema. Osmin Amos MD Pelvis X-Ray 12/26/16 1343 Signed Impressions: Service Date/Time: Monday, December 26, 2016 13:56 - CONCLUSION: No acute disease. Dave Serna MD Head CT 12/26/16 1343 Signed Impressions: Service Date/Time: Monday, December 26, 2016 14:53 - CONCLUSION: No acute intracranial abnormality. Dave Ibanez MD Cervical Spine CT 12/26/16 1343 Signed Impressions: Service Date/Time: Monday, December 26, 2016 14:53 - CONCLUSION: Intact cervical spine. Degenerative changes as above. Dave Ibanez MD Maxillofacial CT 12/26/16 0000 Signed Impressions: Service Date/Time: Monday, December 26, 2016 14:53 - CONCLUSION: 1. No facial fracture. 2. Diffusely heterogeneous marrow. Please see above. Dave Ibanez MD Chest X-Ray 12/26/16 0000 Signed Impressions: Service Date/Time: Monday, December 26, 2016 14:51 - CONCLUSION: Mild, nonspecific consolidation of the left lung. Dave Ibanez MD Chest CT 12/26/16 0000 Signed Impressions: Service Date/Time: Monday, December 26, 2016 14:59 - CONCLUSION: 1. Nothing convincing for acute trauma to the chest. 2. Patchy infiltrates in both mid and lower lungs that are most likely pre-existing, infectious or inflammatory. 3. Small pericardial effusion also probably nonacute. 4. Upper limits of normal size mediastinal lymph nodes without anything clearly pathologic. 5. Left breast surgery. 6. Coronary artery calcification. Dave Ibanez MD Objective Remarks GENERAL: This is a well-nourished, well-developed patient, in no apparent distress. CARDIOVASCULAR: Regular rate and rhythm without murmurs, gallops, or rubs. RESPIRATORY: Clear to auscultation. Breath sounds equal bilaterally. No wheezes , rales, or rhonchi. GASTROINTESTINAL: Abdomen soft, non-tender, nondistended. Normal active bowel sounds MUSCULOSKELETAL: Extremities without clubbing, cyanosis, or edema. NEURO: Alert & Oriented x4 to person, place, time, situation. Moves all ext x4 A/P Problem List: (1) DOMENICA (acute kidney injury) Status: Acute Plan: - comgmt with Nephrology - US kidneys, bladder, ureters (12/27/16) --> increased echogenicity of both kidneys c/w medical renal disease - Pt had VasCath placed (12/30/16) - undergoing HD m/w/f - Cr 4.46 (01/10/17) - Cr 3.45 (01/11/17) - Cr 3.92 (01/15/17) - Case d/w Dr. Parry (01/16/17) - Unfortunately pt's renal function is NOT improving and pt will need continued HD upon discharge - will convert VasCath to PermCath - Pt will need outpt HD center arranged prior to discharge - anticipate d/c to SNF in 2-3 days once arrangements can be made (2) Fall Status: Acute Plan: - Pt is 86 yo admitted after a fall secondary to dizziness with LOC and sustained facial trauma/contusions - At admission pt noted to have DOMENICA, cough/chills. - CXR with chest infiltrates concerning for PNA, could consider radiation lung changes as pt s/p radiation for breast ca recently. - She has CLL and chronic leukocytosis. - Pt will need SNF at conclusion of this hospitalization -scd's. [facility]. (3) Hyperkalemia Status: Acute Plan: - see above (4) Hypocalcemia Status: Acute Plan: - improving - likely d/t acute illness & poor nutritional status - repleted 12/29 (5) Contusion of face Status: Acute Plan: - Secondary to fall, see above (6) Pneumonia Status: Acute Plan: - leukocytosis improved from admission, but pt has underlying CLL - Pt was treated with Rocephin and azithromycin (12/27/16 - 01/01/17) - Pt still requiring supplemental O2. - Incentive spirometer - Duonebs q6h while awake - Encourage ambulation and OOB - Blood Culture (12/26) with no growth to date (7) CLL (chronic lymphocytic leukemia) Status: Chronic Plan: - Follows with Dr. Wilson (8) Breast CA Status: Chronic Plan: - s/p lumpectomy and radiation. (9) Vaginal prolapse Status: Acute Plan: - f/u with rn urgent care outpt Problem Qualifiers (1) Contusion of face: Qualified Code: S00.83XD - Contusion of face, subsequent encounter (2) Pneumonia: Qualified Code: J18.9 - Pneumonia of both lower lobes due to infectious organism Thom Murillo DO Jan 16, 2017 14:59
[2017-01-16 16:00] VITALS: BP 129/76; PULSE 88; RESP 17; TEMP 98.6; O2SAT 97
[2017-01-16 18:27] VITALS: O2SAT 97
[2017-01-16 20:35] VITALS: BP 133/64; PULSE 82; RESP 17; TEMP 98.3; O2SAT 94
[2017-01-16] MEDS: traZODone HCL 50 MG TAB PO SCH (21:34)
[2017-01-16] MEDS: ZOLPIDEM TARTRATE 5 MG TAB PO PRN (21:34)
[2017-01-17 00:12] VITALS: BP 130/62; PULSE 93; RESP 17; TEMP 98.5; O2SAT 93
[2017-01-17 06:01] LABS: BICARBONATE 33.4 MEQ/L (21.0-32.0); POTASSIUM 3.2 MEQ/L (3.5-5.1)
[2017-01-17 08:00] VITALS: BP 131/69; PULSE 98; RESP 16; TEMP 98.4; O2SAT 96
[2017-01-17] MEDS: amLODIPine BESYLATE 5 MG TAB PO SCH ×2 (08:12→20:20)
[2017-01-17] MEDS: ANASTROZOLE 1 MG TAB PO SCH (08:12)
[2017-01-17] MEDS: ASPIRIN 81 MG CHEW TAB CHEW SCH (08:12)
[2017-01-17] MEDS: ATORVASTATIN 80 MG TAB PO SCH (08:12)
[2017-01-17] MEDS: SODIUM CHLOR 0.9% 1000 ML INJ 1,000 ML IV PRN (09:22)
[2017-01-17] MEDS: GENTAMICIN SULFATE (DIALYSIS USE ONLY) 20 MG/2 ML VIAL IV PRN (09:22)
[2017-01-17] MEDS: HEPARIN SODIUM - IV 10,000 UNITS/10 ML VIAL PRN (09:22)
--- NOTE | 2017-01-17 14:17 | HHI.PR ---
Subjective Remarks Pt seen in dialysis. No new complaints. Objective Vitals Vital Signs Date Time Temp Pulse Resp B/P Pulse Ox O2 Delivery O2 Flow Rate FiO2 01/17/17 08:24 94 Nasal Cannula 2.00 01/17/17 08:00 98.4 98 16 131/69 96 01/17/17 00:12 98.5 93 17 130/62 93 01/16/17 20:35 98.3 82 17 133/64 94 01/16/17 20:00 94 Nasal Cannula 2.00 01/16/17 18:27 97 Nasal Cannula 2.00 01/16/17 16:00 98.6 88 17 129/76 97 01/16/17 01/16/17 01/17/17 15:00 23:00 07:00 Intake Total 240 ml 280 ml Output Total 1000 ml 800 ml 600 ml Balance -760 ml -520 ml -600 ml Intake Oral 240 ml 280 ml Output Urine Total 850 ml 800 ml 600 ml Stool Total 150 ml # Voids 3 # Bowel Movements 2 1 Result Diagram: 01/17/17 0504 Other Results Laboratory Tests Test 01/16/17 01/17/17 04:42 05:04 Sodium Level 143 MEQ/L 146 MEQ/L Potassium Level 3.4 MEQ/L 3.2 MEQ/L Chloride Level 105 MEQ/L 107 MEQ/L Carbon Dioxide Level 30.6 MEQ/L 33.4 MEQ/L Anion Gap 7 MEQ/L 6 MEQ/L Blood Urea Nitrogen 20 MG/DL 24 MG/DL Creatinine 3.92 MG/DL 4.56 MG/DL Estimat Glomerular Filtration 11 ML/MIN 9 ML/MIN Rate Random Glucose 84 MG/DL 94 MG/DL Calcium Level 8.0 MG/DL 7.9 MG/DL Imaging Last Impressions Catheter Placement X-Ray 12/30/16 0000 Signed Impressions: Service Date/Time: December 12:27 - CONCLUSION: Uncomplicated line placement as above. Steve Ponce Jr., MD Renal Ultrasound 12/27/16 0000 Signed Impressions: Service Date/Time: Tuesday, December 27, 2016 20:43 - CONCLUSION: 1. There is increased echogenicity of both kidneys. This suggests chronic medical renal disease. 2. No hydronephrosis. 3. Small benign left renal cyst. 4. Mild right perinephric edema. Osmin Amos MD Pelvis X-Ray 12/26/16 1343 Signed Impressions: Service Date/Time: Monday, December 26, 2016 13:56 - CONCLUSION: No acute disease. Dave Serna MD Head CT 12/26/16 1343 Signed Impressions: Service Date/Time: Monday, December 26, 2016 14:53 - CONCLUSION: No acute intracranial abnormality. Dave Ibanez MD Cervical Spine CT 12/26/16 1343 Signed Impressions: Service Date/Time: Monday, December 26, 2016 14:53 - CONCLUSION: Intact cervical spine. Degenerative changes as above. Dave Ibanez MD Maxillofacial CT 12/26/16 0000 Signed Impressions: Service Date/Time: Monday, December 26, 2016 14:53 - CONCLUSION: 1. No facial fracture. 2. Diffusely heterogeneous marrow. Please see above. Dave Ibanez MD Chest X-Ray 12/26/16 0000 Signed Impressions: Service Date/Time: Monday, December 26, 2016 14:51 - CONCLUSION: Mild, nonspecific consolidation of the left lung. Dave Ibanez MD Chest CT 12/26/16 0000 Signed Impressions: Service Date/Time: Monday, December 26, 2016 14:59 - CONCLUSION: 1. Nothing convincing for acute trauma to the chest. 2. Patchy infiltrates in both mid and lower lungs that are most likely pre-existing, infectious or inflammatory. 3. Small pericardial effusion also probably nonacute. 4. Upper limits of normal size mediastinal lymph nodes without anything clearly pathologic. 5. Left breast surgery. 6. Coronary artery calcification. Dave Ibanez MD Objective Remarks General: NAD, AAOx3 Chest: CTA Cardiac: Regular Abd: +Bs, soft ND/NT Ext: No edema A/P Problem List: (1) VINI (acute kidney injury) Status: Acute Plan: - comgmt with Nephrology - US kidneys, bladder, ureters (12/27/16) --> increased echogenicity of both kidneys c/w medical renal disease - Pt had VasCath placed (12/30/16) - undergoing HD m/w/f - Cr 4.46 (01/10/17) --> Cr 3.45 (01/11/17) --> Cr 3.92 (01/15/17) --> Cr 4.56 () - Case discussed between Dr. Murillo and Dr. Parry on 01/16/17, unfortunately pt 's renal function is NOT improving and pt will need continued HD upon discharge - Pt will need VasCath converted to PermCath, orders are in place. - Pt will need outpt HD center arranged prior to discharge - anticipate d/c to SNF in 2-3 days once arrangements can be made (2) Fall Status: Acute Plan: - Pt is 86 yo admitted after a fall secondary to dizziness with LOC and sustained facial trauma/contusions - At admission pt noted to have VINI, cough/chills. - CXR with chest infiltrates concerning for PNA, could consider radiation lung changes as pt s/p radiation for breast ca recently. - She has CLL and chronic leukocytosis. - Pt will need SNF at conclusion of this hospitalization - Pt has SCD's and [facility] hose. (3) Hyperkalemia Status: Acute Plan: - see above (4) Hypocalcemia Status: Acute Plan: - improving - likely d/t acute illness & poor nutritional status - repleted 12/29 (5) Contusion of face Status: Acute Plan: - Secondary to fall, see above (6) Pneumonia Status: Acute Plan: - leukocytosis improved from admission, but pt has underlying CLL - Pt was treated with Rocephin and azithromycin (12/27/16 - 01/01/17) - Pt still requiring supplemental O2. - Incentive spirometer - Duonebs q6h while awake - Encourage ambulation and OOB - Blood Culture (12/26) with no growth to date (7) CLL (chronic lymphocytic leukemia) Status: Chronic Plan: - Follows with Dr. Wilson (8) Breast CA Status: Chronic Plan: - s/p lumpectomy and radiation. (9) Vaginal prolapse Status: Acute Plan: - f/u with legal nurse consultant outpt Assessment and Plan Patient examined. Assessment and plan formulated with Yasmeen Thrasher PA-C. I agree with the above. vini. unable to wean off HD. will need permcath then d/c to snf once outpt HD arranged. Problem Qualifiers (1) Contusion of face: Qualified Code: S00.83XD - Contusion of face, subsequent encounter (2) Pneumonia: Qualified Code: J18.9 - Pneumonia of both lower lobes due to infectious organism Yasmeen Thrasher Jan 17, 2017 14:17 Dimas Acosta MD Jan 17, 2017 14:36
[2017-01-17 14:43] VITALS: O2SAT 93
[2017-01-17] MEDS ORDERED: POTASSIUM CHLORIDE 20 MEQ CONTROLLED RELEASE TAB PO ONE (14:45)
[2017-01-17 16:00] VITALS: BP 121/62; PULSE 91; RESP 16; TEMP 97.6; O2SAT 95
--- NOTE | 2017-01-17 17:16 | HHI.NPPN ---
Subjective General Problems: Anemia Renal Failure: Chronic, Acute, Stage III History of Present Illness 86-year-old female with a past medical history of chronic lymphocytic leukemia, history of breast cancer, hypertension, hyperlipidemia, stage III chronic kidney disease who came to the hospital with complaint of a history of fall and cough for four days before admission. I was called to see the patient because of elevated BUN and creatinine. The patient has a history of chronic kidney disease and she has been following with me in the office. Her last creatinine was done. The baseline creatinine is around 1.0 to 1.1 and the GFR around 47 to 46 cm/minute. Additional Remarks Patient is alert, no SOB, seen after HD. Review of Systems General Constitutional: Fatigue Respiratory Lungs: SOB, Cough, Sputum, Wheeze Cardiovascular Cardiac: ZELAYA Gastrointestinal Gastrointestinal: Nausea & Vomiting Objective Data Data 01/16/17 01/17/17 19:00 07:00 Intake Total 240 ml 280 ml Output Total 1000 ml 1400 ml Balance -760 ml -1120 ml Intake Oral 240 ml 280 ml Output Urine Total 850 ml 1400 ml Stool Total 150 ml # Voids 3 # Bowel Movements 2 1 Vital Signs Date Time Temp Pulse Resp B/P Pulse Ox O2 Delivery O2 Flow Rate FiO2 01/17/17 16:10 Room Air 01/17/17 16:00 97.6 91 16 121/62 95 01/17/17 14:43 93 Nasal Cannula 1.00 01/17/17 08:24 94 Nasal Cannula 2.00 01/17/17 08:00 98.4 98 16 131/69 96 01/17/17 00:12 98.5 93 17 130/62 93 01/16/17 20:35 98.3 82 17 133/64 94 01/16/17 20:00 94 Nasal Cannula 2.00 01/16/17 18:27 97 Nasal Cannula 2.00 -: 01/17/17 0504 Physical Exam General Appearance: No Acute Distress, Comfortable Eyes Eye Exam: Pupils Equal Throat Throat Exam: Oral Mucosa [place] & Moist Neck Neck Exam: Trachea Midline Pulmonary Resp Exam: No Distress, Rhonchi, Decreased Bases, Diminished Breath Sounds Cardiology CV Exam: Regular, Normal Sinus Rhythm Gastrointestinal/Abdomen GI Exam: Soft, Non-Tender, Bowel Sounds Present Extremeties Extremities Exam: No Edema Neurologic Neuro Exam: Alert, Awake Psychiatric Psych Exam: Appropriate Responses Assessment/Plan Assessment Summary: DOMENICA/Acute Renal Failure, Hypertension, CKD Stage III Problem List: (1) CLL (chronic lymphocytic leukemia) (2) Contusion of face (3) Fall (4) Breast CA (5) Pneumonia (6) DOMENICA (acute kidney injury) Plan Patient has been non oliguric. BP is stable. WBC are chronically elevated. Possibly has ATN or Interstitial Nephritis. Continue IVF and antibiotics. Started on HD. Patient has good urine out put. Still has elevated BUN and Creatinine. HD done and tolerated well. To arrange for out patient HD and get PermCath. Problem Qualifiers (1) Contusion of face: Qualified Code: S00.83XD - Contusion of face, subsequent encounter (2) Pneumonia: Qualified Code: J18.9 - Pneumonia of both lower lobes due to infectious organism Marysol Parry MD Jan 17, 2017 17:16 Marysol Parry MD Jan 17, 2017 17:16
[2017-01-17 20:00] VITALS: BP 150/70; PULSE 99; RESP 19; TEMP 97.7; O2SAT 93
[2017-01-17] MEDS: traZODone HCL 50 MG TAB PO SCH (20:20)
[2017-01-17] MEDS: ACETAMINOPHEN 325 MG TAB PO PRN (23:55)
[2017-01-18] VITALS (8 sets, daily range): BP systolic 110–142; BP diastolic 57–67; PULSE 80–98; RESP 16–20; TEMP 96.3–98.9; O2SAT 90–95
[2017-01-18 06:06] LABS: BICARBONATE 32.7 MEQ/L (21.0-32.0); POTASSIUM 3.7 MEQ/L (3.5-5.1)
[2017-01-18] MEDS: ONDANSETRON HCL 4 MG/2 ML VIAL IV PUSH PRN (06:43)
[2017-01-18] MEDS: ASPIRIN 81 MG CHEW TAB CHEW SCH (09:00)
[2017-01-18] MEDS: amLODIPine BESYLATE 5 MG TAB PO SCH ×2 (09:27→19:44)
[2017-01-18] MEDS: ANASTROZOLE 1 MG TAB PO SCH (09:27)
[2017-01-18] MEDS: ATORVASTATIN 80 MG TAB PO SCH (09:27)
--- NOTE | 2017-01-18 10:11 | HHI.PR ---
Subjective Remarks No New complaints. Pt awaiting Perm-a-cath placement and outpt dialysis arrangements Objective Vitals Vital Signs Date Time Temp Pulse Resp B/P Pulse Ox O2 Delivery O2 Flow Rate FiO2 01/18/17 08:00 98.9 88 16 126/59 94 01/18/17 04:00 97.4 89 20 142/67 95 01/18/17 00:55 18 01/18/17 00:12 97.4 98 19 135/63 91 01/17/17 20:00 97.7 99 19 150/70 93 01/17/17 16:10 Room Air 01/17/17 16:00 97.6 91 16 121/62 95 01/17/17 14:43 93 Nasal Cannula 1.00 01/17/17 01/17/17 01/18/17 15:00 23:00 07:00 Intake Total 0 ml 240 ml 120 ml Output Total 1000 ml 200 ml Balance -1000 ml 40 ml 120 ml Intake Oral 0 ml 240 ml 120 ml Output Urine Total 200 ml Hemodialysis 1000 ml # Voids 2 2 2 # Bowel Movements 1 1 0 Result Diagram: 01/18/17 0511 Other Results Laboratory Tests Test 01/17/17 01/18/17 05:04 05:11 Sodium Level 146 MEQ/L 144 MEQ/L Potassium Level 3.2 MEQ/L 3.7 MEQ/L Chloride Level 107 MEQ/L 105 MEQ/L Carbon Dioxide Level 33.4 MEQ/L 32.7 MEQ/L Anion Gap 6 MEQ/L 6 MEQ/L Blood Urea Nitrogen 24 MG/DL 15 MG/DL Creatinine 4.56 MG/DL 3.13 MG/DL Estimat Glomerular Filtration 9 ML/MIN 14 ML/MIN Rate Random Glucose 94 MG/DL 90 MG/DL Calcium Level 7.9 MG/DL 8.2 MG/DL Imaging Last Impressions Catheter Placement X-Ray 12/30/16 0000 Signed Impressions: Service Date/Time: December 12:27 - CONCLUSION: Uncomplicated line placement as above. Steve Ponce Jr., MD Renal Ultrasound 12/27/16 0000 Signed Impressions: Service Date/Time: Tuesday, December 27, 2016 20:43 - CONCLUSION: 1. There is increased echogenicity of both kidneys. This suggests chronic medical renal disease. 2. No hydronephrosis. 3. Small benign left renal cyst. 4. Mild right perinephric edema. Osmin Amos MD Pelvis X-Ray 12/26/16 1343 Signed Impressions: Service Date/Time: Monday, December 26, 2016 13:56 - CONCLUSION: No acute disease. Dave Serna MD Head CT 12/26/16 1343 Signed Impressions: Service Date/Time: Monday, December 26, 2016 14:53 - CONCLUSION: No acute intracranial abnormality. Dave Ibanez MD Cervical Spine CT 12/26/16 1343 Signed Impressions: Service Date/Time: Monday, December 26, 2016 14:53 - CONCLUSION: Intact cervical spine. Degenerative changes as above. Dave Ibanez MD Maxillofacial CT 12/26/16 0000 Signed Impressions: Service Date/Time: Monday, December 26, 2016 14:53 - CONCLUSION: 1. No facial fracture. 2. Diffusely heterogeneous marrow. Please see above. Dave Ibanez MD Chest X-Ray 12/26/16 0000 Signed Impressions: Service Date/Time: Monday, December 26, 2016 14:51 - CONCLUSION: Mild, nonspecific consolidation of the left lung. Dave Ibanez MD Chest CT 12/26/16 0000 Signed Impressions: Service Date/Time: Monday, December 26, 2016 14:59 - CONCLUSION: 1. Nothing convincing for acute trauma to the chest. 2. Patchy infiltrates in both mid and lower lungs that are most likely pre-existing, infectious or inflammatory. 3. Small pericardial effusion also probably nonacute. 4. Upper limits of normal size mediastinal lymph nodes without anything clearly pathologic. 5. Left breast surgery. 6. Coronary artery calcification. Dave Ibanez MD Objective Remarks General: NAD, AAOx3 Chest: CTA Cardiac: Regular Abd: +Bs, soft ND/NT Ext: No edema A/P Problem List: (1) DOMENICA (acute kidney injury) Status: Acute Plan: - comgmt with Nephrology - US kidneys, bladder, ureters (12/27/16) --> increased echogenicity of both kidneys c/w medical renal disease - Pt had VasCath placed (12/30/16) - undergoing HD m/w/f - Cr 4.46 (01/10/17) --> Cr 3.45 (01/11/17) --> Cr 3.92 (01/15/17) --> Cr 4.56 () - Case discussed between Dr. Murillo and Dr. Parry on 01/16/17, unfortunately pt 's renal function is NOT improving and pt will need continued HD upon discharge - Pt will need VasCath converted to PermCath, orders have been in place but nurse reports that [facility] does not have the orders so new orders were placed today. - Pt will need outpt HD center arranged prior to discharge, CM is working on this. - anticipate d/c to SNF once arrangements can be made and Perm-a-cath is placed (2) Fall Status: Acute Plan: - Pt is 86 yo admitted after a fall secondary to dizziness with LOC and sustained facial trauma/contusions - At admission pt noted to have DOMENICA, cough/chills. - CXR with chest infiltrates concerning for PNA, could consider radiation lung changes as pt s/p radiation for breast ca recently. - She has CLL and chronic leukocytosis. - Pt will need SNF at conclusion of this hospitalization - Pt has SCD's and MAURI ellie. (3) Hyperkalemia Status: Acute Plan: - see above (4) Hypocalcemia Status: Acute Plan: - improving - likely d/t acute illness & poor nutritional status - repleted 12/29 (5) Contusion of face Status: Acute Plan: - Secondary to fall, see above (6) Pneumonia Status: Acute Plan: - leukocytosis improved from admission, but pt has underlying CLL - Pt was treated with Rocephin and azithromycin (12/27/16 - 01/01/17) - Pt still requiring supplemental O2. - Incentive spirometer - Duonebs q6h while awake - Encourage ambulation and OOB - Blood Culture (12/26) with no growth to date (7) CLL (chronic lymphocytic leukemia) Status: Chronic Plan: - Follows with Dr. Wilson (8) Breast CA Status: Chronic Plan: - s/p lumpectomy and radiation. (9) Vaginal prolapse Status: Acute Plan: - f/u with shake table operator outpt Assessment and Plan Patient examined. Assessment and plan formulated with Yasmeen Thrasher PA-C. I agree with the above. permcath today. then arrange HD outpt and snf. Problem Qualifiers (1) Contusion of face: Qualified Code: S00.83XD - Contusion of face, subsequent encounter (2) Pneumonia: Qualified Code: J18.9 - Pneumonia of both lower lobes due to infectious organism Yasmeen Thrasher Jan 18, 2017 10:11 Dimas Acosta MD Jan 18, 2017 11:25
[2017-01-18] MEDS ORDERED: ceFAZolin 2 GM PREMIX 50 ML IV SCH (10:30)
[2017-01-18 11:00] LABS: HEMATOCRIT 27.8 % (35.0-46.0); MEAN CELL VOLUME 87.8 FL (80.0-100.0); MEAN CORPUSCULAR HEMOGLOBIN 28.9 PG (27.0-34.0); MEAN CORPUSCULAR HGB CONC 32.9 % (32.0-36.0); PLATELET COUNT 115 TH/MM3 (150-450); RED BLOOD COUNT 3.16 MIL/MM3 (4.00-5.30); RED CELL DISTRIBUTION WIDTH 14.4 % (11.6-17.2); REVIEW FLAG FINAL; WHITE BLOOD COUNT 17.6 TH/MM3 (4.0-11.0)
[2017-01-18 11:08] LABS: APTT (PATIENT) 24.8 SEC (24.3-30.1); PROTHROMBIN TIME - PATIENT 11.5 SEC (9.8-11.6)
[2017-01-18] MEDS: VANCOMYCIN INJ 1,000 MG in SODIUM CHLOR 0.9% 250 ML INJ 250 ML IV SCH ×2 (11:29→11:53)
[2017-01-18] MEDS ORDERED: MIDAZOLAM HCL 5 MG/5 ML VIAL ONE (11:52)
[2017-01-18] MEDS ORDERED: fentaNYL CITRATE 250 MCG/5 ML AMP ONE (11:52)
[2017-01-18] MEDS ORDERED: LIDOCAINE 1%/EPINEPHrine 1:100,000 SOLN 20 ML VIAL ONE (12:28)
--- NOTE | 2017-01-18 13:22 | PD.RAD ---
Post Procedure Progress Note Pre Procedure Diagnosis: (1) Renal insufficiency Post Procedure Diagnosis: (1) Renal insufficiency Procedure Date: Jan 18, 2017 Supervising Radiologist: Lalito Mcdaniels Proceduralist/Assist: Cindy Kennedy, RT(R)(CV), Vida Mooney RT(R)() Anesthesia: Local, Analgesia, Conscious Sedation Plan of Activity Patient to Unit: ROPU Patient Condition: Good See PACS Report for procedural detail/treatment Central Venous Access Device Procedure 1 Right Internal Jugular Hemodialysis Catheter Tunneled Conversion (Had vascat) dual lumen Kiswahili: 16 PICC Line Length (cm): 19 Lalito Mcdaniels MD Jan 18, 2017 13:21
[2017-01-18] MEDS ORDERED: HEPARIN SODIUM - IV 2,000 UNITS/2 ML VIAL IV FLUSH PRN (13:30)
[2017-01-18] MEDS ORDERED: SODIUM CHLORIDE 0.9% FLUSH 10 ML FLUSH IVF PRN (13:30)
--- NOTE | 2017-01-18 19:02 | HHI.NPPN ---
Subjective General Problems: Anemia Renal Failure: Chronic, Acute, Stage III History of Present Illness 86-year-old female with a past medical history of chronic lymphocytic leukemia, history of breast cancer, hypertension, hyperlipidemia, stage III chronic kidney disease who came to the hospital with complaint of a history of fall and cough for four days before admission. I was called to see the patient because of elevated BUN and creatinine. The patient has a history of chronic kidney disease and she has been following with me in the office. Her last creatinine was done. The baseline creatinine is around 1.0 to 1.1 and the GFR around 47 to 46 cm/minute. Additional Remarks Patient is alert, no SOB, feeling better, no complain. Review of Systems General Constitutional: Fatigue Respiratory Lungs: SOB, Cough, Sputum, Wheeze Cardiovascular Cardiac: ZELAYA Gastrointestinal Gastrointestinal: Nausea & Vomiting Objective Data Data 01/17/17 01/18/17 19:00 07:00 Intake Total 0 ml 360 ml Output Total 1000 ml 200 ml Balance -1000 ml 160 ml Intake Oral 0 ml 360 ml Output Urine Total 200 ml Hemodialysis 1000 ml # Voids 2 4 # Bowel Movements 1 1 Vital Signs Date Time Temp Pulse Resp B/P Pulse Ox O2 Delivery O2 Flow Rate FiO2 01/18/17 16:00 96.5 92 16 121/57 90 01/18/17 13:50 85 16 114/63 95 01/18/17 13:35 96.3 85 16 110/64 90 01/18/17 12:00 97.7 92 16 132/62 95 01/18/17 09:15 1.00 01/18/17 09:12 Nasal Cannula 1.00 01/18/17 08:00 98.9 88 16 126/59 94 01/18/17 04:00 97.4 89 20 142/67 95 01/18/17 00:55 18 01/18/17 00:12 97.4 98 19 135/63 91 01/17/17 20:00 97.7 99 19 150/70 93 -: 01/18/17 1043 01/18/17 0511 Physical Exam General Appearance: No Acute Distress, Comfortable Eyes Eye Exam: Pupils Equal Throat Throat Exam: Oral Mucosa [place] & Moist Neck Neck Exam: Trachea Midline Pulmonary Resp Exam: No Distress, Rhonchi, Decreased Bases, Diminished Breath Sounds Cardiology CV Exam: Regular, Normal Sinus Rhythm Gastrointestinal/Abdomen GI Exam: Soft, Non-Tender, Bowel Sounds Present Extremeties Extremities Exam: No Edema Neurologic Neuro Exam: Alert, Awake Psychiatric Psych Exam: Appropriate Responses Assessment/Plan Assessment Summary: DOMENICA/Acute Renal Failure, Hypertension, CKD Stage III Problem List: (1) CLL (chronic lymphocytic leukemia) (2) Contusion of face (3) Fall (4) Breast CA (5) Pneumonia (6) DOMENICA (acute kidney injury) Plan Patient has been non oliguric. BP is stable. WBC are chronically elevated. Possibly has ATN or Interstitial Nephritis. Continue IVF and antibiotics. Started on HD. Patient has good urine out put. Still has elevated BUN and Creatinine. HD done yesterday. Non oliguric. Now has PermCath done. Infrastructure Developer notes seen for discharge. Problem Qualifiers (1) Contusion of face: Qualified Code: S00.83XD - Contusion of face, subsequent encounter (2) Pneumonia: Qualified Code: J18.9 - Pneumonia of both lower lobes due to infectious organism Marysol Parry MD Jan 18, 2017 19:02
[2017-01-18] MEDS: traZODone HCL 50 MG TAB PO SCH (19:45)
[2017-01-18] MEDS: ZOLPIDEM TARTRATE 5 MG TAB PO PRN (22:05)
[2017-01-19 00:09] VITALS: BP 126/61; PULSE 78; RESP 20; TEMP 97.7; O2SAT 92
[2017-01-19 06:07] LABS: BICARBONATE 30.4 MEQ/L (21.0-32.0); POTASSIUM 3.6 MEQ/L (3.5-5.1)
[2017-01-19] MEDS: ACETAMINOPHEN 325 MG TAB PO PRN (06:34)
[2017-01-19 08:00] VITALS: BP 139/64; PULSE 92; RESP 19; TEMP 98.2; O2SAT 93
[2017-01-19 08:12] VITALS: O2SAT 98
[2017-01-19] MEDS: amLODIPine BESYLATE 5 MG TAB PO SCH ×2 (08:56→20:12)
[2017-01-19] MEDS: ANASTROZOLE 1 MG TAB PO SCH (08:56)
[2017-01-19] MEDS: ASPIRIN 81 MG CHEW TAB CHEW SCH (08:56)
[2017-01-19] MEDS: ATORVASTATIN 80 MG TAB PO SCH (08:57)
--- NOTE | 2017-01-19 09:30 | HHI.PR ---
Subjective Remarks No new complaints this morning. Pt seen prior to going for dialysis She had Perm-a-cath placed yesterday Objective Vitals Vital Signs Date Time Temp Pulse Resp B/P Pulse Ox O2 Delivery O2 Flow Rate FiO2 01/19/17 08:12 98 21 01/19/17 08:00 98.2 92 19 139/64 93 01/19/17 00:09 97.7 78 20 126/61 92 01/18/17 21:16 Nasal Cannula 1.00 01/18/17 20:19 97.9 80 17 138/62 93 01/18/17 16:00 96.5 92 16 121/57 90 01/18/17 13:50 85 16 114/63 95 01/18/17 13:35 96.3 85 16 110/64 90 01/18/17 12:00 97.7 92 16 132/62 95 01/18/17 01/18/17 01/19/17 15:00 23:00 07:00 Intake Total 245 ml 280 ml 360 ml Output Total 600 ml 400 ml Balance 245 ml -320 ml -40 ml Intake Oral 280 ml 360 ml IV Total 245 ml Output Urine Total 600 ml 400 ml # Voids 3 # Bowel Movements 2 1 Result Diagram: 01/18/17 1043 01/19/17 0519 Other Results Laboratory Tests Test 01/18/17 01/18/17 01/19/17 05:11 10:43 05:19 Sodium Level 144 MEQ/L 144 MEQ/L Potassium Level 3.7 MEQ/L 3.6 MEQ/L Chloride Level 105 MEQ/L 105 MEQ/L Carbon Dioxide Level 32.7 MEQ/L 30.4 MEQ/L Anion Gap 6 MEQ/L 9 MEQ/L Blood Urea Nitrogen 15 MG/DL 20 MG/DL Creatinine 3.13 MG/DL 3.99 MG/DL Estimat Glomerular Filtration 14 ML/MIN 11 ML/MIN Rate Random Glucose 90 MG/DL 92 MG/DL Calcium Level 8.2 MG/DL 8.0 MG/DL White Blood Count 17.6 TH/MM3 Red Blood Count 3.16 MIL/MM3 Hemoglobin 9.1 GM/DL Hematocrit 27.8 % Mean Corpuscular Volume 87.8 FL Mean Corpuscular Hemoglobin 28.9 PG Mean Corpuscular Hemoglobin 32.9 % Concent Red Cell Distribution Width 14.4 % Platelet Count 115 TH/MM3 Mean Platelet Volume 7.4 FL Prothrombin Time 11.5 SEC Prothromb Time International 1.0 RATIO Ratio Activated Partial 24.8 SEC Thromboplast Time Imaging Last Impressions Catheter Placement X-Ray 12/30/16 0000 Signed Impressions: Service Date/Time: December 12:27 - CONCLUSION: Uncomplicated line placement as above. Steve Ponce Jr., MD Renal Ultrasound 12/27/16 0000 Signed Impressions: Service Date/Time: Tuesday, December 27, 2016 20:43 - CONCLUSION: 1. There is increased echogenicity of both kidneys. This suggests chronic medical renal disease. 2. No hydronephrosis. 3. Small benign left renal cyst. 4. Mild right perinephric edema. Osmin Amos MD Pelvis X-Ray 12/26/16 1343 Signed Impressions: Service Date/Time: Monday, December 26, 2016 13:56 - CONCLUSION: No acute disease. Dave Srena MD Head CT 12/26/16 1343 Signed Impressions: Service Date/Time: Monday, December 26, 2016 14:53 - CONCLUSION: No acute intracranial abnormality. Dave Ibanez MD Cervical Spine CT 12/26/16 1343 Signed Impressions: Service Date/Time: Monday, December 26, 2016 14:53 - CONCLUSION: Intact cervical spine. Degenerative changes as above. Dave Ibanez MD Maxillofacial CT 12/26/16 0000 Signed Impressions: Service Date/Time: Monday, December 26, 2016 14:53 - CONCLUSION: 1. No facial fracture. 2. Diffusely heterogeneous marrow. Please see above. Dave Ibanez MD Chest X-Ray 12/26/16 0000 Signed Impressions: Service Date/Time: Monday, December 26, 2016 14:51 - CONCLUSION: Mild, nonspecific consolidation of the left lung. Dave Ibanez MD Chest CT 12/26/16 0000 Signed Impressions: Service Date/Time: Monday, December 26, 2016 14:59 - CONCLUSION: 1. Nothing convincing for acute trauma to the chest. 2. Patchy infiltrates in both mid and lower lungs that are most likely pre-existing, infectious or inflammatory. 3. Small pericardial effusion also probably nonacute. 4. Upper limits of normal size mediastinal lymph nodes without anything clearly pathologic. 5. Left breast surgery. 6. Coronary artery calcification. Dave Ibanez MD Objective Remarks General: NAD, AAOx3 Chest: CTA, Perm-a-cath in right chest wall Cardiac: Regular Abd: +Bs, soft ND/NT Ext: No edema A/P Problem List: (1) DOMENICA (acute kidney injury) Status: Acute Plan: - comgmt with Nephrology - US kidneys, bladder, ureters (12/27/16) --> increased echogenicity of both kidneys c/w medical renal disease - Pt had VasCath placed (12/30/16) - undergoing HD m/w/f - Cr 4.46 (01/10/17) --> Cr 3.45 (01/11/17) --> Cr 3.92 (01/15/17) --> Cr 4.56 () --> Cr 3.13 (01/18/17) --> Cr 3.99 (01/19/17) - Case discussed between Dr. Murillo and Dr. Parry on 01/16/17, unfortunately pt 's renal function is NOT improving and pt will need continued HD upon discharge - Pt had Perm-a-cath placed on 01/18/17 - CM is working on outpt HD center arrangements prior to discharge. - anticipate d/c to SNF once arrangements can be made (2) Fall Status: Acute Plan: - Pt is 86 yo admitted after a fall secondary to dizziness with LOC and sustained facial trauma/contusions - At admission pt noted to have DOMENICA, cough/chills. - CXR with chest infiltrates concerning for PNA, could consider radiation lung changes as pt s/p radiation for breast ca recently. - She has CLL and chronic leukocytosis. - Pt will need SNF at conclusion of this hospitalization - Pt has SCD's and MAURI hose. (3) Hyperkalemia Status: Acute Plan: - see above (4) Hypocalcemia Status: Acute Plan: - improving - likely d/t acute illness & poor nutritional status - repleted 12/29 (5) Contusion of face Status: Acute Plan: - Secondary to fall, see above (6) Pneumonia Status: Acute Plan: - leukocytosis improved from admission, but pt has underlying CLL - Pt was treated with Rocephin and azithromycin (12/27/16 - 3/18/17) - Pt still requiring supplemental O2. - Incentive spirometer - Duonebs q6h while awake - Encourage ambulation and OOB - Blood Culture (12/26) with no growth to date (7) CLL (chronic lymphocytic leukemia) Status: Chronic Plan: - Follows with Dr. Wilson (8) Breast CA Status: Chronic Plan: - s/p lumpectomy and radiation. (9) Vaginal prolapse Status: Acute Plan: - f/u with building mover outpt Assessment and Plan Patient examined. Assessment and plan formulated with Yasmeen Thrasher PA-C. I agree with the above. Pt doing well. has permath. await placement and outpt hd arrangements. Problem Qualifiers (1) Contusion of face: Qualified Code: S00.83XD - Contusion of face, subsequent encounter (2) Pneumonia: Qualified Code: J18.9 - Pneumonia of both lower lobes due to infectious organism Yasmeen Thrasher Jan 19, 2017 09:30 Dimas Acosta MD Jan 19, 2017 09:50
--- NOTE | 2017-01-19 09:38 | HHI.DCPOC ---
Discharge Care Plan Diagnosis: (1) Pneumonia (2) Renal insufficiency (3) Hypocalcemia (4) Hyperkalemia (5) Breast CA (6) Contusion of face (7) CLL (chronic lymphocytic leukemia) (8) Fall Goals to Promote Your Health * To prevent worsening of your condition and complications * To maintain your health at the optimal level Directions to Meet Your Goals Take your medications as prescribed Follow your dietary instruction Follow activity as directed Keep your appointments as scheduled Take your immunizations and boosters as scheduled If your symptoms worsen call your PCP, if no PCP go to Urgent Care Center or Emergency Room Smoking is Dangerous to Your Health. Avoid second hand smoke Call the 24-hour hour crisis hotline for domestic abuse at Yasmeen Thrasher Jan 19, 2017 09:37
--- NOTE | 2017-01-19 10:36 | HHI.NPPN ---
Subjective General Problems: Anemia Renal Failure: Chronic, Acute, Stage III History of Present Illness 86-year-old female with a past medical history of chronic lymphocytic leukemia, history of breast cancer, hypertension, hyperlipidemia, stage III chronic kidney disease who came to the hospital with complaint of a history of fall and cough for four days before admission. I was called to see the patient because of elevated BUN and creatinine. The patient has a history of chronic kidney disease and she has been following with me in the office. Her last creatinine was done. The baseline creatinine is around 1.0 to 1.1 and the GFR around 47 to 46 cm/minute. Additional Remarks Patient is alert, now on HD, no complain. Review of Systems General Constitutional: Fatigue Respiratory Lungs: SOB, Cough, Sputum, Wheeze Cardiovascular Cardiac: ZELAYA Gastrointestinal Gastrointestinal: Nausea & Vomiting Objective Data Data 01/18/17 01/19/17 19:00 07:00 Intake Total 245 ml 640 ml Output Total 1000 ml Balance 245 ml -360 ml Intake Oral 0 ml 640 ml IV Total 245 ml Output Urine Total 1000 ml # Voids 3 # Bowel Movements 0 3 Vital Signs Date Time Temp Pulse Resp B/P Pulse Ox O2 Delivery O2 Flow Rate FiO2 01/19/17 08:12 98 21 01/19/17 08:00 98.2 92 19 139/64 93 01/19/17 00:09 97.7 78 20 126/61 92 01/18/17 21:16 Nasal Cannula 1.00 01/18/17 20:19 97.9 80 17 138/62 93 01/18/17 16:00 96.5 92 16 121/57 90 01/18/17 13:50 85 16 114/63 95 01/18/17 13:35 96.3 85 16 110/64 90 01/18/17 12:00 97.7 92 16 132/62 95 -: 01/18/17 1043 01/19/17 0519 Physical Exam General Appearance: No Acute Distress, Comfortable Eyes Eye Exam: Pupils Equal Throat Throat Exam: Oral Mucosa [place] & Moist Neck Neck Exam: Trachea Midline Pulmonary Resp Exam: No Distress, Rhonchi, Decreased Bases, Diminished Breath Sounds Cardiology CV Exam: Regular, Normal Sinus Rhythm Gastrointestinal/Abdomen GI Exam: Soft, Non-Tender, Bowel Sounds Present Extremeties Extremities Exam: No Edema Neurologic Neuro Exam: Alert, Awake Psychiatric Psych Exam: Appropriate Responses Assessment/Plan Assessment Summary: DOMENICA/Acute Renal Failure, Hypertension, CKD Stage III Problem List: (1) CLL (chronic lymphocytic leukemia) (2) Contusion of face (3) Fall (4) Breast CA (5) Pneumonia (6) DOMENICA (acute kidney injury) Plan Patient has been non oliguric. BP is stable. WBC are chronically elevated. Possibly has ATN or Interstitial Nephritis. Continue IVF and antibiotics. Started on HD. Patient has good urine out put. Still has elevated BUN and Creatinine. HD to continue for now. Out patient arrangements in progress. Problem Qualifiers (1) Contusion of face: Qualified Code: S00.83XD - Contusion of face, subsequent encounter (2) Pneumonia: Qualified Code: J18.9 - Pneumonia of both lower lobes due to infectious organism Marysol Parry MD Jan 19, 2017 10:36
[2017-01-19 12:00] VITALS: BP 116/69; PULSE 125; RESP 19; TEMP 98.2; O2SAT 99
[2017-01-19] MEDS: GENTAMICIN SULFATE (DIALYSIS USE ONLY) 20 MG/2 ML VIAL IV PRN (13:10)
[2017-01-19] MEDS: HEPARIN SODIUM - IV 10,000 UNITS/10 ML VIAL PRN (13:12)
[2017-01-19] MEDS: ONDANSETRON HCL 4 MG/2 ML VIAL IV PUSH PRN (15:09)
[2017-01-19 16:00] VITALS: BP 116/56; PULSE 89; RESP 19; TEMP 97.8; O2SAT 91
[2017-01-19 20:00] VITALS: BP 130/64; PULSE 82; RESP 18; TEMP 98.6; O2SAT 97
[2017-01-19] MEDS: traZODone HCL 50 MG TAB PO SCH (20:12)
[2017-01-20 00:02] VITALS: BP 120/59; PULSE 82; RESP 17; TEMP 98.6; O2SAT 93
[2017-01-20] MEDS: ACETAMINOPHEN 325 MG TAB PO PRN (03:11)
[2017-01-20 08:00] VITALS: BP 137/65; PULSE 94; RESP 16; TEMP 96.8; O2SAT 94
[2017-01-20] MEDS ORDERED: ZOFR4TAB3 SL (09:11)
--- NOTE | 2017-01-20 09:21 | HHI.DS ---
Discharge Summary Admission Date Dec 26, 2016 at 16:24 Discharge Date: Jan 20, 2017 Admitting Diagnosis fall. dizzy. domenica, pna (1) DOMENICA (acute kidney injury) Diagnosis: Secondary (2) Fall Diagnosis: Principal (3) Hyperkalemia Diagnosis: Secondary (4) Hypocalcemia Diagnosis: Secondary (5) Contusion of face Diagnosis: Secondary (6) Pneumonia Diagnosis: Principal (7) CLL (chronic lymphocytic leukemia) Diagnosis: Secondary (8) Breast CA Diagnosis: Secondary (9) Vaginal prolapse Diagnosis: Secondary Consultants Dr. Sheryl Parry - Nephrology Brief History Pt is 86 yo women with CLL and breast ca. She has had cough for past 4 days and one night had shaking chills. Today was at rental car store when she reports turning her head quickly and then becoming dizzy falling to the ground on her face. Probably brief loss of conciousness. Bruising over left face and periorbital area. Found to have domenica and concern for pna in ED. CBC/BMP: 01/18/17 1043 01/19/17 0519 Significant Findings Laboratory Tests Test 01/18/17 01/18/17 01/19/17 05:11 10:43 05:19 Carbon Dioxide Level 32.7 MEQ/L (21.0-32.0) Creatinine 3.13 MG/DL 3.99 MG/DL (0.50-1.00) (0.50-1.00) Estimat Glomerular Filtration 14 ML/MIN (>89) 11 ML/MIN (>89) Rate Calcium Level 8.2 MG/DL 8.0 MG/DL (8.5-10.1) (8.5-10.1) White Blood Count 17.6 TH/MM3 (4.0-11.0) Red Blood Count 3.16 MIL/MM3 (4.00-5.30) Hemoglobin 9.1 GM/DL (11.6-15.3) Hematocrit 27.8 % (35.0-46.0) Platelet Count 115 TH/MM3 (150-450) Blood Urea Nitrogen 20 MG/DL (7-18) Imaging Last Impressions Catheter Placement X-Ray 12/30/16 0000 Signed Impressions: Service Date/Time: December 12:27 - CONCLUSION: Uncomplicated line placement as above. Steve Ponce Jr., MD Renal Ultrasound 12/27/16 0000 Signed Impressions: Service Date/Time: Tuesday, December 27, 2016 20:43 - CONCLUSION: 1. There is increased echogenicity of both kidneys. This suggests chronic medical renal disease. 2. No hydronephrosis. 3. Small benign left renal cyst. 4. Mild right perinephric edema. Osmin Amos MD Pelvis X-Ray 12/26/16 1343 Signed Impressions: Service Date/Time: Monday, December 26, 2016 13:56 - CONCLUSION: No acute disease. Dave Serna MD Head CT 12/26/16 1343 Signed Impressions: Service Date/Time: Monday, December 26, 2016 14:53 - CONCLUSION: No acute intracranial abnormality. Dave Ibanez MD Cervical Spine CT 12/26/16 1343 Signed Impressions: Service Date/Time: Monday, December 26, 2016 14:53 - CONCLUSION: Intact cervical spine. Degenerative changes as above. Dave Ibanez MD Maxillofacial CT 12/26/16 0000 Signed Impressions: Service Date/Time: Monday, December 26, 2016 14:53 - CONCLUSION: 1. No facial fracture. 2. Diffusely heterogeneous marrow. Please see above. Dave Ibanez MD Chest X-Ray 12/26/16 0000 Signed Impressions: Service Date/Time: Monday, December 26, 2016 14:51 - CONCLUSION: Mild, nonspecific consolidation of the left lung. Dave Ibanez MD Chest CT 12/26/16 0000 Signed Impressions: Service Date/Time: Monday, December 26, 2016 14:59 - CONCLUSION: 1. Nothing convincing for acute trauma to the chest. 2. Patchy infiltrates in both mid and lower lungs that are most likely pre-existing, infectious or inflammatory. 3. Small pericardial effusion also probably nonacute. 4. Upper limits of normal size mediastinal lymph nodes without anything clearly pathologic. 5. Left breast surgery. 6. Coronary artery calcification. Dave Ibanez MD PE at Discharge General: NAD, AAOx3 Chest: CTA, Perm-a-cath in right chest wall Cardiac: Regular Abd: +Bs, soft ND/NT Ext: No edema Hospital Course Pt is 86 yo admitted after a fall secondary to dizziness with LOC and sustained facial trauma/contusions. At admission pt noted to have DOMENICA, cough/chills, acute electrolyte abnormalities. CXR with chest infiltrates concerning for PNA, could consider radiation lung changes as pt s/p radiation for breast ca recently. She also has CLL and chronic leukocytosis. Pt was treated with Rocephin and azithromycin (12/27/16 - 01/01/17) and Duoneb treatment with clinical improvement in her cough/PNA symptoms. Pt was able to be weaned off supplemental O2. Blood Culture (12/26) with no growth to date. Her electrolyte abnormalities were felt to be secondary to her acute illness & poor nutritional status. Pt has a hx of stage III chronic kidney disease but was found to have acutely elevated BUN and creatinine. Her baseline creatinine is around 1.0 to 1.1 and the GFR around 47 to 46 cm/minute. Pt was found to have acute kidney injury at admission. It was felt by Nephrology that the pt may have possibly ATN or Interstitial Nephritis. US kidneys, bladder, ureters (12/27/16) --> increased echogenicity of both kidneys c/w medical renal disease. There was no improvement in pt's Creatinine with just IVF. Pt had VasCath placed (12/30/16) and was undergoing HD m/w/f. Her creatinine did not improve enough to warrant discontinuation of the dialysis during this admission. Pt had Perm-a-cath placed on 01/18/17. Outpt dialysis arrangements have been made but her schedule will be changed to at [facility]. Pt is planned for discharge to SNF today She will need to followup with her PCP, Dr. Kenneth Vu, 1 week after discharge from SNF She will need to followup with Dr. Parry in 1 week for continued monitoring of her renal function and for dialysis Pt Condition on Discharge: Stable Discharge Disposition: Discharge to SNF Discharge Instructions DIET: Follow Instructions for: Renal Failure Diet Activities you can perform: Regular-No Restrictions Follow up Referrals: Nephrology - [address] Parry PCP Follow-up - [address] Kenneth Vu New Medications: Ondansetron Odt (Zofran Odt) 4 Mg Tab 4 MG SL Q8HR PRN Nausea/Vomiting #30 Ref 0 TAB Continued Medications: Amlodipine (Amlodipine) 5 Mg Tab 5 MG PO BID Blood Pressure Management #30 Ref 0 TAB Anastrozole (Anastrozole) 1 Mg Tab 1 MG PO DAILY Breast Cancer #30 Ref 0 TAB Aspirin (Aspirin) 81 Mg Chew 81 MG CHEW DAILY Ref 0 TAB Rosuvastatin (Crestor) 40 Mg Tab 40 MG PO DAILY Cholesterol Management #30 Ref 0 TAB Trazodone (Trazodone) 150 Mg Tab 150 MG PO HS Control Depression #30 Ref 0 TAB Discontinued Medications: Losartan (Losartan) 50 Mg Tab 50 MG PO DAILY Blood Pressure Management #30 Ref 0 TAB Yasmeen Thrasher Jan 20, 2017 09:20 Dimas Acosta MD Jan 20, 2017 10:40
[2017-01-20] MEDS: ANASTROZOLE 1 MG TAB PO SCH (09:30)
[2017-01-20] MEDS: amLODIPine BESYLATE 5 MG TAB PO SCH (09:31)
[2017-01-20] MEDS: ATORVASTATIN 80 MG TAB PO SCH (09:31)
[2017-01-20] MEDS: ASPIRIN 81 MG CHEW TAB CHEW SCH (09:31)
--- NOTE | 2017-01-20 11:56 | HHI.NPPN ---
Subjective General Problems: Anemia Renal Failure: Chronic, Acute, Stage III History of Present Illness 86-year-old female with a past medical history of chronic lymphocytic leukemia, history of breast cancer, hypertension, hyperlipidemia, stage III chronic kidney disease who came to the hospital with complaint of a history of fall and cough for four days before admission. I was called to see the patient because of elevated BUN and creatinine. The patient has a history of chronic kidney disease and she has been following with me in the office. Her last creatinine was done. The baseline creatinine is around 1.0 to 1.1 and the GFR around 47 to 46 cm/minute. Additional Remarks Patient is alert, no complain, no SOB. Review of Systems General Constitutional: Fatigue Respiratory Lungs: SOB, Cough, Sputum, Wheeze Cardiovascular Cardiac: ZELAYA Gastrointestinal Gastrointestinal: Nausea & Vomiting Objective Data Data 01/19/17 01/20/17 19:00 07:00 Intake Total 360 ml 640 ml Output Total 400 ml 1200 ml Balance -40 ml -560 ml Intake Oral 360 ml 640 ml Output Urine Total 400 ml 1200 ml # Bowel Movements 1 2 Vital Signs Date Time Temp Pulse Resp B/P Pulse Ox O2 Delivery O2 Flow Rate FiO2 01/20/17 08:00 96.8 94 16 137/65 94 01/20/17 00:02 98.6 82 17 120/59 93 01/19/17 20:00 98.6 82 18 130/64 97 01/19/17 16:00 97.8 89 19 116/56 91 01/19/17 12:00 98.2 125 19 116/69 99 -: 01/18/17 1043 01/19/17 0519 Physical Exam General Appearance: No Acute Distress, Comfortable Eyes Eye Exam: Pupils Equal Throat Throat Exam: Oral Mucosa [place] & Moist Neck Neck Exam: Trachea Midline Pulmonary Resp Exam: No Distress, Rhonchi, Decreased Bases, Diminished Breath Sounds Cardiology CV Exam: Regular, Normal Sinus Rhythm Gastrointestinal/Abdomen GI Exam: Soft, Non-Tender, Bowel Sounds Present Extremeties Extremities Exam: No Edema Neurologic Neuro Exam: Alert, Awake Psychiatric Psych Exam: Appropriate Responses Assessment/Plan Assessment Summary: DOMENICA/Acute Renal Failure, Hypertension, CKD Stage III Problem List: (1) CLL (chronic lymphocytic leukemia) (2) Contusion of face (3) Fall (4) Breast CA (5) Pneumonia (6) DOMENICA (acute kidney injury) Plan Patient has been non oliguric. BP is stable. WBC are chronically elevated. Possibly has ATN or Interstitial Nephritis. Continue IVF and antibiotics. Started on HD. Patient has good urine out put. Still has elevated BUN and Creatinine. HD to continue for now. For possible D/C today. To continue HD at out patient on TTS. Follow BMP weekly. Problem Qualifiers (1) Contusion of face: Qualified Code: S00.83XD - Contusion of face, subsequent encounter (2) Pneumonia: Qualified Code: J18.9 - Pneumonia of both lower lobes due to infectious organism Marysol Parry MD Jan 20, 2017 11:56
[2017-01-20 12:00] VITALS: BP 135/70; PULSE 90; RESP 18; TEMP 97.2; O2SAT 95
--- NOTE | 2017-01-21 08:52 | RADRPT ---
EXAM DATE/TIME: 01/18/2017 11:50 [facility] COMPARISON: No previous studies available for comparison. INDICATIONS : Patient is in need of a conversion of existing temporary dialysis cathetr to a permanent catheter. MEDICAL HISTORY : History of acute renal failure, chronic lymphocytic leukemia, breast cancer, hyperlipidemia, pneumoni a. SURGICAL HISTORY : History of lumpectomy, angioplasty and cardiac stent. ENCOUNTER: Subsequent ACUITY: 3 weeks PAIN SCORE: 0/10 FLUORO TIME: 0.6 minutes IMAGE SERIES: 1 SEDATION TIME: 30 minutes MEDICATION(S): 1.) 3 mg midazolam (Versed) IV 2.) 150 mcg Fentanyl (Sublimaze) IV DEVICE(S): 1.) 15fr/ 19cm Alfaro II Plus dialyis catheter PROCEDURE : After appropriate prepped and draped, existing dermatotomy and the right neck was anesthetized with a pproximately 5 cc 1% Xylocaine. Using the existing catheter as a guide, an appropriate spot on the ch est wall was selected and the area anesthetized with an additional 3 cc 1% Xylocaine. The tract betwe en the chest wall and cervical dermatotomy was anesthetized. The tunneler was advanced from the chest wall to the cervical dermatotomy. Existing Vas-Cath was removed over a wire. The peel-away sheath wa s then advanced into the central venous system. The prescribed dialysis catheter was then advanced ov er the wire and through the peel-away sheath. The cuff was then pulled through the subcutaneous tunne l with the metallic tunneler. Position was confirmed fluoroscopically. Each port was aspirated and fl ushed and locked with the appropriate volume and concentration of heparin. CONCLUSION: Successful conversion of a right IJ Vas-Cath catheter to a PermCath catheter as above. Lalito Mcdaniels MD on January 21, 2017 at 8:33 Board Certified Radiologist. This report was verified electronically.
== END 2017-01-20 14:19 | DRG 673 ==
LOC: NEPC 13:18 → NEDA 16:24 → N07B 18:55
PROVIDERS: ADMIT Hospitalist; ATTEND Hospitalist
PROC: 0JH63XZ Insertion of Tunneled Vascular Access Device into Chest Subcutaneous Tissue and Fascia, Percutaneous Approach (ICD-10-PCS; principal; 2016-12-30)
PROC: 05HM33Z Insertion of Infusion Device into Right Internal Jugular Vein, Percutaneous Approach (ICD-10-PCS; 2016-12-30)
PROC: B543ZZA Ultrasonography of Right Jugular Veins, Guidance (ICD-10-PCS; 2016-12-30)
PROC: 5A1D60Z (ICD-10-PCS; 2016-12-30)
PROC: 05HM33Z Insertion of Infusion Device into Right Internal Jugular Vein, Percutaneous Approach (ICD-10-PCS; 2016-12-30)
DX: N17.0 Acute kidney failure with tubular necrosis (principal); J18.9 Pneumonia, unspecified organism; C91.10 Chronic lymphocytic leukemia of B-cell type not having achieved remission; E87.5 Hyperkalemia; D64.9 Anemia, unspecified; E86.0 Dehydration; I12.9 Hypertensive chronic kidney disease with stage 1 through stage 4 chronic kidney disease, or unspecified chronic kidney disease; E83.51 Hypocalcemia; S00.83XA Contusion of other part of head, initial encounter; R55 Syncope and collapse; N10 Acute pyelonephritis; N18.3 Chronic kidney disease, stage 3 (moderate); N81.10 Cystocele, unspecified; E78.5 Hyperlipidemia, unspecified; F41.9 Anxiety disorder, unspecified; W18.30XA Fall on same level, unspecified, initial encounter; Y92.89 Other specified places as the place of occurrence of the external cause; Z85.3 Personal history of malignant neoplasm of breast; Z88.5 Allergy status to narcotic agent; Z91.81 History of falling; Z92.3 Personal history of irradiation; Z95.5 Presence of coronary angioplasty implant and graft
CPT/HCPCS: 36556; 36558; 70450; 70486; 71010; 71250; 72125; 72170; 76775; 76937; 77001; 80048; 80074; 81001; 83605; 83735; 83935; 84100; 84155; 84300; 85007; 85027; 85610; 85730; 87040; 87086; 87205; 87449; 87804; 90935; 93005; 94150; 94640; 94664; 96365; 96374; 96375; 99152; 99153; C1750; C1752; J0456; J0610; J0690; J0696; J1580; J1644; J2250; J2270; J2405; J2543; J3010; J3370; J3475; J7030; J7050; Q0169